=== PATIENT | female | born 1950 | race Caucasian/White ===

== ENCOUNTER 2017-06-08 15:10 | Emergency (ER) | payer OTHER ==
--- NOTE | 2017-06-08 16:06 | PDOC ---
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 HTN , diabetes, hypercholesterolemia, hypothyroidism, and gastric ulcers. Patient says she starting experiencing a headache around 11:00 am. She describes her headache as: sudden onset, rates 10/12. She states her headache occurred profusely but began to concentrate on her right side. She reports experiencing flashes of light. She reports associated symptoms of nausea and left-sided weakness. She reports that she was recently at her eye doctors office. Her doctor reported that her eyes were fine. She then saw her PCP Dr. Little who became concerned and referred to the ER. Patient reports feeling nauseated and thought she was going to pass out earlier. She states her pain has subsided and her eyes do not bother her as much. Rates her current pain 5/10. She denies fever, chills, vomiting, diarrhea. FMHx: heart attack & cancer. <Daria Feldman - Last Filed: 06/08/17 17:04> <Jeana Pacheco - Last Filed: 06/08/17 18:27> - General Chief Complaint: Headache Stated Complaint: HEADACHE Time Seen by Provider: 06/08/17 15:44 Past History <Daria Feldman - Last Filed: 06/08/17 17:04> - Past Medical History Diabetes: Yes Hypercholesterolemia: Yes - Suicide/Smoking/Psychosocial Hx Smoking History: Former smoker <Jeana Pacheco - Last Filed: 06/08/17 18:27> - Past Medical History Allergies/Adverse Reactions: Allergies Allergy/AdvReac Type Severity Reaction Status Date / Time No Known Allergies Allergy Verified 06/08/17 16:04 Home Medications: Ambulatory Orders Aspirin [ASA -] 81 mg PO DAILY 02/11/14 Glimepiride 2 mg PO DAILY 02/11/14 Levothyroxine [Synthroid -] 88 mcg PO DAILY 02/11/14 Metformin HCl [Glucophage] 1,000 mg PO BID 02/11/14 Omeprazole [Prilosec (RX)] 20 mg PO DAILY 02/11/14 Amlodipine Besylate [Norvasc -] 5 mg PO DAILY 06/08/17 Atorvastatin Ca [Lipitor] 20 mg PO HS 06/08/17 Cholecalciferol (Vitamin D3) [Vitamin D3 -] 1,000 unit PO DAILY 06/08/17 Cyanocobalamin (Vitamin B-12) [Vitamin B-12] 2,500 mcg SL DAILY 06/08/17 Losartan Potassium 50 mg PO DAILY 06/08/17 Vitamin B Complex [B Complex] 1 each PO DAILY 06/08/17 Review of Systems - Review of Systems Comments:: 06/08/17 17:13 GENERAL/CONSTITUTIONAL: No fever or chills. HEAD, EYES, EARS, NOSE AND THROAT: +eye pain + disrupted vision changes No ear pain or discharge. No sore throat. GASTROINTESTINAL: + nausea. No vomiting, diarrhea or constipation. GENITOURINARY: No dysuria, frequency, or change in urination. CARDIOVASCULAR: No chest pain or shortness of breath. RESPIRATORY: No cough, wheezing, or hemoptysis. MUSCULOSKELETAL: No joint or muscle swelling or pain. No neck or back pain. SKIN: No rash NEUROLOGIC: +headache +left-sided weakness. No vertigo, loss of consciousness, or change in strength. ENDOCRINE: No increased thirst. No abnormal weight change. HEMATOLOGIC/LYMPHATIC: No anemia, easy bleeding, or history of blood clots. ALLERGIC/IMMUNOLOGIC: No hives or skin allergy. <Daria Feldman - Last Filed: 06/08/17 17:04> *Physical Exam - Vital Signs Last Vital Signs Temp Pulse Resp BP Pulse Ox 98.1 F 84 15 144/73 98 06/08/17 15:12 06/08/17 15:12 06/08/17 15:12 06/08/17 15:12 06/08/17 15:12 <Daria Feldman - Last Filed: 06/08/17 17:04> - Physical Exam Comments: GENERAL: Awake, alert, and fully oriented, in no acute distress HEAD: No signs of trauma EYES: PERRLA, EOMI, sclera anicteric, conjunctiva clear ENT: Auricles normal inspection, hearing grossly normal, nares patent, oropharynx clear without exudates. Moist mucosa NECK: Normal ROM, supple, no lymphadenopathy, JVD, or masses LUNGS: Breath sounds equal, clear to auscultation bilaterally. No wheezes, and no crackles HEART: Regular rate and rhythm, normal S1 and S2, no murmurs, rubs or gallops ABDOMEN: Soft, nontender, normoactive bowel sounds. No guarding, no rebound. No masses EXTREMITIES: Normal range of motion, no edema. No clubbing or cyanosis. No cords , erythema, or tenderness NEUROLOGICAL: Cranial nerves II through XII grossly intact. Normal speech, normal gait. Motor 4/5 to LUE/LLE, 5/5 to RUE/RLE. Sensation intact. SKIN: Warm, Dry, normal turgor, no rashes or lesions noted. SPINE: No midline tenderness. <eJana Pacheco - Last Filed: 06/08/17 18:27> ED Treatment Course - LABORATORY CBC & Chemistry Diagram: 06/08/17 16:45 06/08/17 16:45 - Medications Given in the ED: ED Medications Discontinued Medications Generic Name Dose Route Start Last Admin Trade Name Freq PRN Reason Stop Dose Admin Acetaminophen 1,000 mg 06/08/17 16:19 06/08/17 16:45 Ofirmev Injection - IVPB 06/08/17 16:20 1,000 mg ONCE ONE Administration Metoclopramide HCl 10 mg 06/08/17 16:19 06/08/17 16:53 Reglan Injection - IVPB 06/08/17 16:20 10 mg ONCE ONE Administration <Daria Feldman - Last Filed: 06/08/17 17:04> - LABORATORY CBC & Chemistry Diagram: 06/08/17 16:45 06/08/17 16:45 <Jeana Pacheco - Last Filed: 06/08/17 18:27> Medical Decision Making - Medical Decision Making 06/08/17 17:49 Pt symptoms have resolved. Neuro exam with return of full 5/5 strength to the LUE and LLE. CTH no acute findings. Suspect this was complex migraine. Will page Dr. Little to discuss if he is available. 06/08/17 17:59 D/w Dr. Little. Will f/u outpatient. <Jeana Pacheco - Last Filed: 06/08/17 18:27> *DC/Admit/Observation/Transfer - Attestations Scribe Attestion: 06/08/17 17:13 Documentation prepared by Daria Feldman, acting as electromedical equipment technician for Jeana Pacheco MD. <Daria Feldman Filed: 06/08/17 17:04> - Discharge Dispostion Admit: No <Jeana Pacheco - Last Filed: 06/08/17 18:27> Diagnosis at time of Disposition: Headache Qualifiers: Headache type: unspecified Headache chronicity pattern: acute headache Intractability: not intractable Qualified Code(s): R51 - Headache - Discharge Dispostion Disposition: HOME Condition at time of disposition: Improved - Referrals Referrals: Mariusz Ltitle MD [Primary Care Provider] - - Patient Instructions Printed Discharge Instructions: DI for Headache
[2017-06-08 16:15] VITALS: BP 144/73; PULSE 84; TEMP 98.1; BMI 30.2
[2017-06-08] MEDS ORDERED: METOCLOPRAMIDE HCL INJECTION 10 MG/2 ML VIAL IVPB ONE (16:19)
[2017-06-08] MEDS ORDERED: ACETAMINOPHEN 1000 MG/100 ML VIAL (NON FORMULARY) IVPB ONE (16:19)
[2017-06-08] MEDS ORDERED: SODIUM CHLORIDE 1,000 ML IV STA (16:19)
[2017-06-08] MEDS ORDERED: ACETAMINOPHEN INJECTION 100 ML IVPB ONE (16:33)
[2017-06-08 16:57] LABS: BASOPHIL 0.6 % (0-2.0); EOSINOPHIL 0.1 % (0-4.5); MCH 29.3 pg (25.7-33.7); MCHC 34.7 g/dl (32.0-36.0); MEAN CELL VOLUME 84.6 fl (80-96); MEAN PLT VOLUME 7.4 fl (7.5-11.1); NEUTROPHILS 63.9 % (42.8-82.8); PLATELET COUNT 348 K/MM3 (134-434); RDW 13.1 % (11.6-15.6); WHITE BLOOD COUNT 8.1 K/mm3 (4.0-10.8)
[2017-06-08 17:16] LABS: ALBUMIN 4.4 g/dl (3.5-5.0); ALK PHOS 61 U/L (32-92); ANION GAP 10 (8-16); BILIRUBIN,TOTAL 0.6 mg/dl (0.2-1.0); CALCIUM 9.5 mg/dl (8.4-10.2); CO2 30 mmol/L (22-28); CREATININE 0.8 mg/dl (0.6-1.3); GLUCOSE,RANDOM 163 mg/dl (74-106); SGOT/AST 20 U/L (10-42); SGPT/ALT 18 U/L (10-40); TOT PROT 7.1 g/dl (6.4-8.3)
== END 2017-06-08 17:56 | disposition home or self-care (01) ==
LOC: FER 15:10
PROC: 3E033NZ Introduction of Analgesics, Hypnotics, Sedatives into Peripheral Vein, Percutaneous Approach (ICD-10-PCS; principal; 2017-06-08)
PROC: 3E033GC Introduction of Other Therapeutic Substance into Peripheral Vein, Percutaneous Approach (ICD-10-PCS; 2017-06-08)
PROC: 3E0337Z Introduction of Electrolytic and Water Balance Substance into Peripheral Vein, Percutaneous Approach (ICD-10-PCS; 2017-06-08)
DX: R51 Headache (principal)
CPT/HCPCS: 36415; 70450-TC; 80053; 85025; 96361; 96374; 96375; 99282-25

== ENCOUNTER 2017-10-15 11:02 | Inpatient (IN) | payer OTHER ==
[2017-10-15] MEDS ORDERED: SODIUM CHLORIDE 1,000 ML IV SCH (12:00)
[2017-10-15 12:01] LABS: BASO % 1.3 % (0-2.0); EOS % 0.1 % (0-4.5); HEMATOCRIT 38.9 % (32.4-45.2); HEMOGLOBIN 12.5 GM/dL (10.7-15.3); LYMPH % 21.7 % (8-40); MCH 27.6 pg (25.7-33.7); MCHC 32.1 g/dl (32.0-36.0); MEAN CELL VOLUME 86.1 fl (80-96); MEAN PLT VOLUME 7.2 fl (7.5-11.1); MONO % 6.9 % (3.8-10.2); PLATELET COUNT 375 K/MM3 (134-434); RBC 4.52 M/mm3 (3.60-5.2); WHITE BLOOD COUNT 9.9 K/mm3 (4.0-10.0)
--- NOTE | 2017-10-15 12:06 | PDOC ---
History of Present Illness - General Chief Complaint: CVA/TIA Stated Complaint: WEAKNESS Time Seen by Provider: 10/15/17 11:15 History Source: Patient - History of Present Illness Initial Comments: 10/15/17 12:06 66F with pmh of diabetes, htn and hypothyroidism presents with 2 week history of left arm weakness. pain and numbness, which got worse since Sunday. Patient states those symptoms getting progressively worse. Numbness and pain are worse when arm is dangling by her side and relived with internal rotation. Shes been keeping her arm in a sling. Dr. Little her pcp told her that thios was probably a pinched nerve. She admits to a history of multiple spine fractures and a recent chest Ct showing multiple lung nodules. Past History - Past Medical History Allergies/Adverse Reactions: Allergies Allergy/AdvReac Type Severity Reaction Status Date / Time No Known Allergies Allergy Verified 10/15/17 11:07 Home Medications: Ambulatory Orders Aspirin [ASA -] 81 mg PO DAILY 02/11/14 Glimepiride 2 mg PO DAILY 02/11/14 Levothyroxine [Synthroid -] 88 mcg PO DAILY 02/11/14 Omeprazole [Prilosec (RX)] 20 mg PO DAILY 02/11/14 metFORMIN HCL [Glucophage] 1,000 mg PO BID 02/11/14 Amlodipine Besylate [Norvasc -] 5 mg PO DAILY 06/08/17 Atorvastatin Ca [Lipitor] 20 mg PO HS 06/08/17 Cholecalciferol (Vitamin D3) [Vitamin D3 -] 1,000 unit PO DAILY 06/08/17 Cyanocobalamin (Vitamin B-12) [Vitamin B-12] 2,500 mcg SL DAILY 06/08/17 Losartan Potassium 50 mg PO DAILY 06/08/17 Vitamin B Complex [B Complex] 1 each PO DAILY 06/08/17 Zolpidem Tartrate [Ambien] 5 mg PO HS 10/15/17 COPD: No Diabetes: Yes HTN: Yes Hypercholesterolemia: Yes - Suicide/Smoking/Psychosocial Hx Smoking History: Former smoker Have you smoked in the past 12 months: No If you are a former smoker, when did you quit?: 2005 Information on smoking cessation initiated: No Hx Alcohol Use: Yes Drug/Substance Use Hx: No Substance Use Type: None *Physical Exam - Vital Signs Last Vital Signs Temp Pulse Resp BP Pulse Ox 97.9 F 84 18 148/75 100 10/15/17 11:03 10/15/17 11:54 10/15/17 11:03 10/15/17 11:03 10/15/17 11:54 Critical Care Time/MDM Note - Medical Decision Making Note: 10/15/17 12:37 Although the patient's presentation suggests a more focal, musculoskeletal etiology, we will rule out stroke with head CT and order bloodwork after taking stroke precautions. In addition, the patient recent chest CT and pulmonary nodules can be suggestive of a neoplastic/metastatic etiology but an cervical radiculopathy is also high in the differential and will be evaluated with a cervical neck CT. Labs and imaging pending then will call neurology. 10/15/17 15:37 There is multilevel disc space narrowing, uncovertebral and posterior facet hypertrophy. The disc space narrowing is most severe at C3-C4. There is mild narrowing of the right C2-C3 neural foramen, moderate narrowing of the left C3-C4 neural foramen, severe narrowing of the right C3-C4 neural foramen and mild narrowing of multiple additional neural foramen on the cervical spine. There is at least moderate canal stenosis at C3-C4 secondary to disc osteophyte complex, kyphotic angulation and facet hypertrophy with thickening of ligamentum flavum. There is at least mild canal stenosis at C4-C5 and C5-C6. Will get in touch with neuro surgery Patient admitted to med surg. Discharge Disposition - Discharge Dispostion Last Admission D/C Date: 11/29/00 - Referrals - Patient Instructions - Post Discharge Activity
[2017-10-15 12:07] LABS: URINE APPEARANCE CLEAR; URINE BILIRUBIN NEGATIVE (NEGATIVE); URINE BLOOD NEGATIVE (NEGATIVE); URINE COLOR LTYELLOW; URINE GLUCOSE (UA) NEGATIVE (NEGATIVE); URINE KETONE NEGATIVE (NEGATIVE); URINE LEUK ESTERASE NEGATIVE (NEGATIVE); URINE NITRITE NEGATIVE (NEGATIVE); URINE PROTEIN NEGATIVE (NEGATIVE); URINE UROBILINOGEN NEGATIVE mg/dL (0.2-1.0)
--- NOTE | 2017-10-15 12:15 | PDOC ---
Attending Attestation - Medical Decision Making 10/15/17 13:53 Dr. Brown was called regarding admission of this patient and the patient's case was discussed. Dr. Goyal was paged requesting a call back <Ana María Robles - Last Filed: 10/15/17 13:53> - Resident Resident Name: Chilo Washington - ED Attending Attestation I have performed the following: I have examined & evaluated the patient, The case was reviewed & discussed with the resident, I agree w/resident's findings & plan, Exceptions are as noted - HPI HPI: 10/15/17 12:06 The patient is a 62 year old female, with a significant past medical history of hypothyroidism, diabetes, hypertension, who presents to the emergency department with left arm weakness, progressively worsening for about 2 weeks. She reports that for the past 3 days, she has been unable to raise her left arm. Denies any neck pain. Denies weakness/numbness in any other extremity. Denies KC/N/V. Denies facial droop or slurred speech. The patient denies chest pain, shortness of breath, headache and dizziness. The patient denies fever, chills, nausea, vomit, diarrhea and constipation. The patient denies dysuria, frequency, urgency and hematuria. Allergies: NKDA - Physicial Exam PE: 10/15/17 12:09 GENERAL: Awake, alert, and fully oriented, in no acute distress HEAD: No signs of trauma EYES: PERRLA, EOMI, sclera anicteric, conjunctiva clear ENT: Auricles normal inspection, hearing grossly normal, nares patent, oropharynx clear without exudates. Moist mucosa NECK: Nontender, no stepoffs, Normal ROM, supple, no lymphadenopathy, JVD, or masses LUNGS: Breath sounds equal, clear to auscultation bilaterally. No wheezes, and no crackles HEART: Regular rate and rhythm, normal S1 and S2, no murmurs, rubs or gallops ABDOMEN: Soft, nontender, normoactive bowel sounds. No guarding, no rebound. No masses EXTREMITIES: Normal range of motion, no edema. No clubbing or cyanosis. No cords, erythema, or tenderness NEUROLOGICAL: Cranial nerves II through XII intact. Normal speech, normal gait, LUE with 3/5 deltoid and bicep strength, RUE with 5/5 strength, BLE 5/5 strength , sensation intact throughout SKIN: Warm, Dry, normal turgor, no rashes or lesions noted. - Medical Decision Making 10/15/17 12:15 66 F with LUE weakness (deltoid and bicep weakness), concerning for cervical radiculopathy vs brachial plexus injury. Also consider CVA. - Labs - CT head, CT c-spine - Neuro consult - MRI CT with spinal stenosis, likely cause of pt's weakness. Neuro and neurosurgery consulted. MRI ordered. Pt admitted to hospitalist. <Sarabjit Jimenez - Last Filed: 10/17/17 05:10> NIH Stroke Scale - Last Known Well Date/Time & Onset Date Last Known Well: 10/12/17 Time Last Known Well: 05:00 - Initial Evaluation Level of consciousness: Alert Ask patient the month and their age: Answers both correctly Ask patient to open & close eyes; make fist and let go: Obeys both correctly Best gaze (horizontal eye movement): Normal Visual field testing: No visual field loss Facial paresis (Show teeth/raise eyebrows/close eyes tight): Normal symmetrical movement Motor Function: Left Arm: Some effort against gravity Motor Function: Right Arm: Normal (extends arm 90 (or 45) degrees for 10 seconds without drift Motor Function: Left Leg: Normal (extends leg 30 degrees for 5 seconds without drift) Motor Function: Right Leg: Normal (extends leg 30 degrees for 5 seconds without drift) Limb Ataxia: No ataxia Sensory(Use pinprick test arms,legs,trunk,face/side to side): Normal Best language (Describe picture, name items, read sentences): No Aphasia Dysarthria (read several words): Normal articulation Extinction and Inattention: No abnormality - Total Score NIH Stroke Scale Score: 2 <Sarabjit Jimenez - Last Filed: 10/17/17 05:10>
[2017-10-15 12:18] LABS: INR 0.94 (0.82-1.09); PROTHROMBIN TIME (PATIENT) 10.6 SEC (9.98-11.88)
[2017-10-15 12:20] LABS: ACTIVATED PTT 30.4 SECONDS (26.9-34.4)
[2017-10-15 12:27] LABS: ALBUMIN 4.5 g/dl (3.4-5.0); ANION GAP 6 (8-16); BILIRUBIN,TOTAL 0.4 mg/dL (0.2-1.0); BLOOD UREA NITROGEN 11 mg/dL (7-18); CALCIUM 8.8 mg/dL (8.5-10.1); CHLORIDE 104 mmol/L (98-107); CHOLESTEROL 178 mg/dL (50-200); CO2 30 mmol/L (21-32); CREATININE 0.8 mg/dL (0.55-1.02); GLUCOSE,RANDOM 87 mg/dL (74-106); LDL CHOLESTEROL (ONLY SJRH) 89 mg/dL (5-100); POTASSIUM 4.7 mmol/L (3.5-5.1); SGOT/AST 17 U/L (15-37); SGPT/ALT 26 U/L (12-78); SODIUM 140 mmol/L (136-145); TRIGLYCERIDES 211 mg/dL (35-160)
[2017-10-15 12:28] LABS: ALK PHOS 79 U/L (45-117); HDL CHOLESTEROL 76 mg/dL (40-60)
--- NOTE | 2017-10-15 17:42 | CONSULT ---
Consult - text type - Consultation Consultation Note: NEUROSURGERY CONSULTATION Mayra Hancock is a 66 year old female who has a several week history of progression of her chronic neck and Left arm pain. She describes difficulty raising the Left arm above the horizontal. She has significant numbness and paresthesias in her Left greater than Right hands which is associated with loss of fine motor skills in her Left hand. She describes a poor quality of life and substantial impairment of her activities of daily living associated with this problem. She has Left shoulder and arm pain which is only relieved by raising her Left hand to her Right shoulder using her Right arm. This is awkward, but necessary to relieve the pain which is greatly bothering her. CT Cervical demonstrates multiple levels of spondylosis with osteophytes that encroach upon the neural foramina and narrow the AP Cervical spinal canal diameter which is already congenitally narrow. The kaylee canal (not considering any soft tissue compression) is less than 9 mm at some levels. MRI will be very helpful to understand the extent of neural compression and to identify potential soft disc herniations which will have important bearing upon the potential treatment options. I briefly outlined both ventral, dorsal and combined decompression/stabilization strategies and explained that the MRI will help me make a final recommendation. I suggested that she remain NPO after midnight to keep all options available. The patient and daughter verbalized an understanding of this information and indeed are eager to pursue a definitive solution including the possibility of surgery since they both share a sense that she has left this untreated for too long a period of time. All questions were answered. PLAN -MRI Cervical without contrast RAFIA -Admit to Medicine (Dilshad Brown) -Medical clearance for potential surgery in AM
[2017-10-15 17:58] VITALS: BMI 30.8
--- NOTE | 2017-10-15 19:26 | HP ---
Admitting History and Physical - Primary Care Physician PCP: Rhona Brown - Admission Chief Complaint: left arm weakness History of Present Illness: 66 year old female came to ER for 2 weeks h/o Left arm pain. She describes difficulty raising the Left arm above the horizontal. She has significant numbness and paresthesias in her Left greater than Right hands which is associated with loss of fine motor skills in her Left hand. Also said she had impairment of her activities of daily living . She has Left shoulder and arm pain which is only relieved by raising her Left hand to her Right shoulder using her Right arm. This is awkward, but necessary to relieve the pain which is greatly bothering her. - Past Medical History Cardiovascular: Yes: HTN Endocrine: Yes: Diabetes Mellitus - Smoking History Smoking history: Former smoker Have you smoked in the past 12 months: No If you are a former smoker, when did you quit?: 2006 - Alcohol/Substance Use Hx Alcohol Use: Yes Home Medications - Allergies Allergies/Adverse Reactions: Allergies Allergy/AdvReac Type Severity Reaction Status Date / Time No Known Allergies Allergy Verified 10/15/17 11:07 - Home Medications Home Medications: Ambulatory Orders Aspirin [ASA -] 81 mg PO DAILY 02/11/14 Glimepiride 2 mg PO DAILY 02/11/14 Levothyroxine [Synthroid -] 88 mcg PO DAILY 02/11/14 Omeprazole [Prilosec (RX)] 20 mg PO DAILY 02/11/14 metFORMIN HCL [Glucophage] 1,000 mg PO BID 02/11/14 Amlodipine Besylate [Norvasc -] 5 mg PO DAILY 06/08/17 Atorvastatin Ca [Lipitor] 20 mg PO HS 06/08/17 Cholecalciferol (Vitamin D3) [Vitamin D3 -] 2,000 unit PO DAILY 06/08/17 Losartan Potassium 50 mg PO DAILY 06/08/17 Vitamin B Complex [B Complex] 1 each PO DAILY 06/08/17 Ascorbic Acid [Vitamin C] 500 mg PO DAILY 10/15/17 Biotin 5,000 mcg PO DAILY 10/15/17 Cyanocobalamin [Vitamin B12 -] 1,000 mcg PO DAILY 10/15/17 L.acidoph,Paracasei, B.lactis [Probiotic] 1 each PO DAILY 10/15/17 Vance-3 Fatty Acids/Fish Oil [Fish Oil 1,000 mg Capsule] 1 each PO DAILY Vitamin E 400 unit PO DAILY 10/15/17 Zolpidem Tartrate [Ambien] 5 mg PO HS 10/15/17 Review of Systems - Review of Systems Neurological: reports: Numbness, Parasthesia, Weakness (left arm) Physical Examination Vital Signs: Vital Signs Temperature 98.2 F 10/15/17 17:51 Pulse Rate 93 H 10/15/17 17:51 Respiratory Rate 20 10/15/17 17:51 Blood Pressure 132/86 10/15/17 17:51 O2 Sat by Pulse Oximetry (%) 95 10/15/17 13:18 Constitutional: Yes: No Distress HENT: Yes: Atraumatic Neck: Yes: Supple Cardiovascular: Yes: Regular Rate and Rhythm Respiratory: Yes: CTA Bilaterally Gastrointestinal: Yes: Normal Bowel Sounds Extremities: Yes: WNL Labs: CBC, BMP 10/15/17 11:53 10/15/17 11:53 Problem List - Problems (1) HTN (hypertension) Code(s): I10 - ESSENTIAL (PRIMARY) HYPERTENSION (2) Diabetes Code(s): E11.9 - TYPE 2 DIABETES MELLITUS WITHOUT COMPLICATIONS (3) Weakness Code(s): R53.1 - WEAKNESS Assessment/Plan Laboratory Tests 10/15/17 10/15/17 10/15/17 11:53 11:53 11:53 WBC 9.9 RBC 4.52 Hgb 12.5 Hct 38.9 MCV 86.1 MCH 27.6 MCHC 32.1 RDW 14.0 Plt Count 375 MPV 7.2 L Neutrophils % 70.0 Lymphocytes % 21.7 Monocytes % 6.9 Eosinophils % 0.1 Basophils % 1.3 PT with INR 10.60 INR 0.94 PTT (Actin FS) 30.4 Sodium Potassium Chloride Carbon Dioxide Anion Gap BUN Creatinine Creat Clearance w eGFR Random Glucose Calcium Total Bilirubin AST ALT Alkaline Phosphatase Creatine Kinase Troponin I Total Protein Albumin Triglycerides Cholesterol Total LDL Cholesterol HDL Cholesterol Urine Color Ltyellow Urine Appearance Clear Urine pH 5.0 Ur Specific [place] 1.006 Urine Protein Negative Urine Glucose (UA) Negative Urine Ketones Negative Urine Blood Negative Urine Nitrite Negative Urine Bilirubin Negative Urine Urobilinogen Negative Ur Leukocyte Esterase Negative Blood Type Antibody Screen 10/15/17 10/15/17 11:53 11:53 WBC RBC Hgb Hct MCV MCH MCHC RDW Plt Count MPV Neutrophils % Lymphocytes % Monocytes % Eosinophils % Basophils % PT with INR INR PTT (Actin FS) Sodium 140 Potassium 4.7 Chloride 104 Carbon Dioxide 30 Anion Gap 6 L BUN 11 Creatinine 0.8 Creat Clearance w eGFR > 60 Random Glucose 87 Calcium 8.8 Total Bilirubin 0.4 AST 17 ALT 26 Alkaline Phosphatase 79 Creatine Kinase 89 Troponin I < 0.02 Total Protein 8.0 Albumin 4.5 Triglycerides 211 H Cholesterol 178 Total LDL Cholesterol 89 HDL Cholesterol 76 H Urine Color Urine Appearance Urine pH Ur Specific [place] Urine Protein Urine Glucose (UA) Urine Ketones Urine Blood Urine Nitrite Urine Bilirubin Urine Urobilinogen Ur Leukocyte Esterase Blood Type A POSITIVE Antibody Screen Negative Active Medications Generic Name Dose Route Start Last Admin Trade Name Freq PRN Reason Stop Dose Admin Sodium Chloride 1,000 mls @ 42 mls/hr 10/15/17 12:00 10/15/17 11:49 Normal Saline - IV 42 mls/hr ASDIR JONATHAN Administration
[2017-10-15] MEDS ORDERED: ACETAMINOPHEN 325 MG TABLET (FP) PO PRN (19:30)
[2017-10-15] MEDS ORDERED: ZOLPIDEM TARTRATE 5 MG TABLET PO PRN (22:00)
[2017-10-15] MEDS: ATORVASTATIN CA 20 MG TABLET (FP) PO SCH (23:05)
--- NOTE | 2017-10-15 23:09 | EKG ---
Test Reason : Blood Pressure : / mmHG Vent. Rate : 087 BPM Atrial Rate : 087 BPM P-R Int : 140 ms QRS Dur : 064 ms QT Int : 356 ms P-R-T Axes : 049 015 073 degrees QTc Int : 428 ms NORMAL SINUS RHYTHM NONSPECIFIC T WAVE ABNORMALITY ABNORMAL ECG WHEN COMPARED WITH ECG OF 27-JUL-2008 15:34, NO SIGNIFICANT CHANGE WAS FOUND Confirmed by ANA SALAS MD ([id number]) on 10/15/2017 11:08:51 PM Referred By: Confirmed By:ANA SALAS MD
[2017-10-16] MEDS: metFORMIN HCL 500 MG TABLET (FP) PO SCH ×3 (06:25→17:59)
[2017-10-16] MEDS: GLIMEPIRIDE 2 MG TABLET (FP) PO SCH (06:25)
[2017-10-16] MEDS: LEVOTHYROXINE NA 88 MCG TABLET (FP) PO SCH (07:19)
[2017-10-16 07:48] LABS: BASO % 0.7 % (0-2.0); EOS % 0.3 % (0-4.5); HEMATOCRIT 33.5 % (32.4-45.2); HEMOGLOBIN 11.1 GM/dL (10.7-15.3); LYMPH % 38.5 % (8-40); MCH 28.1 pg (25.7-33.7); MCHC 33.1 g/dl (32.0-36.0); MONO % 7.7 % (3.8-10.2); NEUT % 52.8 % (42.8-82.8); PLATELET COUNT 304 K/MM3 (134-434); RBC 3.94 M/mm3 (3.60-5.2); RDW 13.7 % (11.6-15.6); WHITE BLOOD COUNT 6.9 K/mm3 (4.0-10.0)
[2017-10-16 08:07] LABS: ALBUMIN 3.5 g/dl (3.4-5.0); ANION GAP 8 (8-16); BLOOD UREA NITROGEN 13 mg/dL (7-18); CALCIUM 9.1 mg/dL (8.5-10.1); CHLORIDE 105 mmol/L (98-107); CO2 29 mmol/L (21-32); POTASSIUM 4.8 mmol/L (3.5-5.1); SODIUM 142 mmol/L (136-145)
[2017-10-16 08:13] LABS: ALK PHOS 59 U/L (45-117); BILIRUBIN,TOTAL 0.3 mg/dL (0.2-1.0); CREATININE 0.7 mg/dL (0.55-1.02); GLUCOSE,RANDOM 103 mg/dL (74-106); SGOT/AST 14 U/L (15-37); SGPT/ALT 21 U/L (12-78); TOT PROT 6.6 g/dl (6.4-8.2)
--- NOTE | 2017-10-16 09:55 | CONSULT ---
Consult - text type - Consultation Consultation Note: Neurology History of Present Illness 66F with pmh of diabetes, htn and hypothyroidism presented initally to my office without appointment for 2 week history of left arm weakness. pain and numbness, which got worse since Sunday prior. She reported that symptoms have been persistent and having numbness and pain. She would hold her left arm in internal rotation for relief. Shes been keeping her arm in a sling reportedly. I referred her to ER where she had CT head which did not show acute changes. CT C spine reviewed and with degenerative changes. She compelted MRI brain which did not show acute changes, there was prior L cerebellar infarct noted. MRI C spine also completed and Dr. Alejandra note reviewed and consider surgical intervention. Moderate C3-C4 and C5-C6 central stenosis. Of note, she reports these symptoms have been recurrent and will go away. She is very emotional during encounter. Past History - Past Medical History Allergies/Adverse Reactions: Allergies Allergy/AdvReac Type Severity Reaction Status Date / Time No Known Allergies Allergy Verified 10/15/17 11:07 Home Medications: Ambulatory Orders Aspirin [ASA -] 81 mg PO DAILY 02/11/14 Glimepiride 2 mg PO DAILY 02/11/14 Levothyroxine [Synthroid -] 88 mcg PO DAILY 02/11/14 Omeprazole [Prilosec (RX)] 20 mg PO DAILY 02/11/14 metFORMIN HCL [Glucophage] 1,000 mg PO BID 02/11/14 Amlodipine Besylate [Norvasc -] 5 mg PO DAILY 06/08/17 Atorvastatin Ca [Lipitor] 20 mg PO HS 06/08/17 Cholecalciferol (Vitamin D3) [Vitamin D3 -] 1,000 unit PO DAILY 06/08/17 Cyanocobalamin (Vitamin B-12) [Vitamin B-12] 2,500 mcg SL DAILY 06/08/17 Losartan Potassium 50 mg PO DAILY 06/08/17 Vitamin B Complex [B Complex] 1 each PO DAILY 06/08/17 Zolpidem Tartrate [Ambien] 5 mg PO HS 10/15/17 COPD: No Diabetes: Yes HTN: Yes Hypercholesterolemia: Yes - Suicide/Smoking/Psychosocial Hx Smoking History: Former smoker Have you smoked in the past 12 months: No If you are a former smoker, when did you quit?: 2005 Information on smoking cessation initiated: No Hx Alcohol Use: Yes Drug/Substance Use Hx: No Substance Use Type: None *Physical Exam Vital Signs Temperature 98 F 10/16/17 07:28 Pulse Rate 85 10/16/17 07:28 Respiratory Rate 20 10/16/17 07:28 Blood Pressure 133/64 18 07:28 O2 Sat by Pulse Oximetry (%) 95 10/15/17 13:18 ENERAL: Awake, alert, and fully oriented, in no acute distress HEAD: No signs of trauma EYES: PERRLA, EOMI, sclera anicteric, conjunctiva clear ENT: Auricles normal inspection, hearing grossly normal, nares patent, oropharynx clear without exudates. Moist mucosa NECK: Nontender, no stepoffs, Normal ROM, supple, no lymphadenopathy, JVD, or masses LUNGS: Breath sounds equal, clear to auscultation bilaterally. No wheezes, and no crackles HEART: Regular rate and rhythm, normal S1 and S2, no murmurs, rubs or gallops ABDOMEN: Soft, nontender, normoactive bowel sounds. No guarding, no rebound. No masses EXTREMITIES: Normal range of motion, no edema. No clubbing or cyanosis. No cords, erythema, or tenderness NEUROLOGICAL: Cranial nerves II through XII intact. Normal speech, normal gait, LUE with 3/5 deltoid and bicep strength, RUE with 5/5 strength, BLE 5/5 strength , sensation intact throughout SKIN: Warm, Dry, normal turgor, no rashes or lesions noted. CBCD WBC 6.9 K/mm3 (4.0-10.0) D 10/16/17 06:00 RBC 3.94 M/mm3 (3.60-5.2) 10/16/17 06:00 Hgb 11.1 GM/dL (10.7-15.3) D 10/16/17 06:00 Hct 33.5 % (32.4-45.2) 10/16/17 06:00 MCV 85.0 fl (80-96) 10/16/17 06:00 MCHC 33.1 g/dl (32.0-36.0) 10/16/17 06:00 RDW 13.7 % (11.6-15.6) 10/16/17 06:00 Plt Count 304 K/MM3 (134-434) 10/16/17 06:00 MPV 7.0 fl (7.5-11.1) L 10/16/17 06:00 CMP Sodium 142 mmol/L (136-145) 10/16/17 06:00 Potassium 4.8 mmol/L (3.5-5.1) 10/16/17 06:00 Chloride 105 mmol/L (98-107) 10/16/17 06:00 Carbon Dioxide 29 mmol/L (21-32) 10/16/17 06:00 Anion Gap 8 (8-16) 10/16/17 06:00 BUN 13 mg/dL (7-18) 10/16/17 06:00 Creatinine 0.7 mg/dL (0.55-1.02) 10/16/17 06:00 Creat Clearance w eGFR > 60 (>60) 10/16/17 06:00 Calcium 9.1 mg/dL (8.5-10.1) 10/16/17 06:00 Total Bilirubin 0.3 mg/dL (0.2-1.0) D 10/16/17 06:00 AST 14 U/L (15-37) L 10/16/17 06:00 ALT 21 U/L (12-78) 10/16/17 06:00 Alkaline Phosphatase 59 U/L (45-117) 10/16/17 06:00 Total Protein 6.6 g/dl (6.4-8.2) 10/16/17 06:00 Albumin 3.5 g/dl (3.4-5.0) 10/16/17 06:[address] C spine reviewed MRI brain and MRI C spine reviewed Plan: 66F with pmh of diabetes, htn and hypothyroidism presented initally to my office without appointment for 2 week history of left arm weakness. pain and numbness, which got worse since Ramiro prior. She reported that symptoms have been persistent and having numbness and pain. She would hold her left arm in internal rotation for relief. Shes been keeping her arm in a sling reportedly. I referred her to ER where she had CT head which did not show acute changes. CT C spine reviewed and with degenerative changes. She completed MRI brain which did not show acute changes, there was prior L cerebellar infarct noted. MRI C spine also completed Moderate C3-C4 and C5-C6 central stenosis. Of note, she reports these symptoms have been recurrent and will go away. Dr. Alejandra note reviewed and consider surgical intervention. Defer to Dr. Alejandra and patient regarding surgical options Will order EMG/NCS in interim Physical therapy Consider orthopedic evaluation No heavy lifting
[2017-10-16] MEDS: amLODIPine BESYLATE 5 MG TABLET (FP) PO SCH (11:01)
[2017-10-16] MEDS: PANTOPRAZOLE 20 MG TABLET (FP) PO SCH (11:01)
[2017-10-16] MEDS: LOSARTAN POTASSIUM 50 MG TABLET (FP) PO SCH (11:01)
[2017-10-16] MEDS: CYANOCOBALAMIN 1,000 MCG TABLET (FP) PO SCH (11:01)
--- NOTE | 2017-10-16 12:22 | PN ---
Progress Note, Physician Chief Complaint: Ms Hancock says she feels better now that there is a plan for her pain. Says the pain is present and unchanged. No cp, sob, n/v. - Current Medication List Current Medications: Active Medications Acetaminophen (Tylenol -) 650 mg PO Q6H PRN PRN Reason: FEVER Last Admin: 10/15/17 23:05 Dose: 650 mg Amlodipine Besylate (Norvasc -) 5 mg PO DAILY [facility] Last Admin: 10/16/17 11:01 Dose: 5 mg Atorvastatin Calcium (Lipitor -) 20 mg PO HS [facility] Last Admin: 10/15/17 23:05 Dose: 20 mg Chlorhexidine Gluconate (Hibiclens For Decolonization -) 1 applic TP HS ONE Stop: 10/16/17 22:01 Cyanocobalamin (Vitamin B12 -) 1,000 mcg PO DAILY [facility] Last Admin: 10/16/17 11:01 Dose: 1,000 mcg Glimepiride (Amaryl -) 2 mg PO DAILY@0700 [facility] Last Admin: 10/16/17 06:25 Dose: 2 mg Sodium Chloride (Normal Saline -) 1,000 mls @ 42 mls/hr IV ASDIR [facility] Last Admin: 10/15/17 11:49 Dose: 42 mls/hr Levothyroxine Sodium (Synthroid -) 88 mcg PO DAILY@0700 [facility] Last Admin: 10/16/17 07:19 Dose: 88 mcg Losartan Potassium (Cozaar -) 50 mg PO DAILY [facility] Last Admin: 10/16/17 11:01 Dose: 50 mg Metformin HCl (Glucophage -) 1,000 mg PO BIDAC [facility] Last Admin: 10/16/17 07:11 Dose: Not Given Pantoprazole Sodium (Protonix -) 20 mg PO DAILY [facility] Last Admin: 10/16/17 11:01 Dose: 20 mg Zolpidem Tartrate (Ambien -) 5 mg PO HS PRN PRN Reason: INSOMNIA - Objective Vital Signs: Vital Signs Temperature 36.6 C 10/16/17 07:28 Pulse Rate 85 10/16/17 07:28 Respiratory Rate 20 10/16/17 07:28 Blood Pressure 133/64 10/16/17 07:28 O2 Sat by Pulse Oximetry (%) 95 10/15/17 13:18 Constitutional: Yes: Well Nourished, No Distress, Calm Cardiovascular: Yes: Regular Rate and Rhythm. No: Gallop, Murmur, Rub Respiratory: Yes: Regular, CTA Bilaterally. No: Rales, Rhonchi, Wheezes Gastrointestinal: Yes: Normal Bowel Sounds, Soft. No: Distention, Tenderness Extremities: Yes: WNL Edema: No Labs: CBC, BMP 10/16/17 06:00 10/16/17 06:00 INR, PTT INR 0.94 (0.82-1.09) 10/15/17 11:53 Problem List - Problems (1) Cervical stenosis of spinal canal Assessment/Plan: -s/p CT and MRI scans -appreciate neurosurgery assistance -planning for surgical intervention tomorrow Code(s): M48.02 - SPINAL STENOSIS, CERVICAL REGION (2) Diabetes Assessment/Plan: -diabetic diet -continue metformin and amaryl Code(s): E11.9 - TYPE 2 DIABETES MELLITUS WITHOUT COMPLICATIONS (3) HTN (hypertension) Assessment/Plan: -controlled -continue norvasc and losartan Code(s): I10 - ESSENTIAL (PRIMARY) HYPERTENSION (4) Hypothyroid Assessment/Plan: -continue synthroid Code(s): E03.9 - HYPOTHYROIDISM, UNSPECIFIED
--- NOTE | 2017-10-16 16:52 | CON.CARD ---
Consult Consult Specialty:: cardiology Reason for Consultation:: preop clearance - History of Present Illness Chief Complaint: L arm weakness History of Present Illness: 66 yo female with L arm weakness. dx'd with c-spine canal stenosis, seen by neurosurgery with plan for surgical intervention. she denies any history of cp at all, and sob only on exertion if runs. goes up stairs routinely, can climb 2 flights without stopping. no syncope no palpitations PMH: HTN HPL DM COPD ex heavy cigs hypothyroid - Past Medical History Cardio/Vascular: Yes: HTN Endocrine: Yes: Diabetes Mellitus - Alcohol/Substance Use Hx Alcohol Use: Yes - Smoking History Smoking history: Former smoker Have you smoked in the past 12 months: No If you are a former smoker, when did you quit?: 2005 Home Medications - Allergies Allergies/Adverse Reactions: Allergies Allergy/AdvReac Type Severity Reaction Status Date / Time No Known Allergies Allergy Verified 10/15/17 11:07 - Home Medications Home Medications: Ambulatory Orders Aspirin [ASA -] 81 mg PO DAILY 02/11/14 Glimepiride 2 mg PO DAILY 02/11/14 Levothyroxine [Synthroid -] 88 mcg PO DAILY 02/11/14 Omeprazole [Prilosec (RX)] 20 mg PO DAILY 02/11/14 metFORMIN HCL [Glucophage] 1,000 mg PO BID 02/11/14 Amlodipine Besylate [Norvasc -] 5 mg PO DAILY 06/08/17 Atorvastatin Ca [Lipitor] 20 mg PO HS 06/08/17 Cholecalciferol (Vitamin D3) [Vitamin D3 -] 2,000 unit PO DAILY 06/08/17 Losartan Potassium 50 mg PO DAILY 06/08/17 Vitamin B Complex [B Complex] 1 each PO DAILY 06/08/17 Ascorbic Acid [Vitamin C] 500 mg PO DAILY 10/15/17 Biotin 5,000 mcg PO DAILY 10/15/17 Cyanocobalamin [Vitamin B12 -] 1,000 mcg PO DAILY 10/15/17 L.acidoph,Paracasei, B.lactis [Probiotic] 1 each PO DAILY 10/15/17 Taswell-3 Fatty Acids/Fish Oil [Fish Oil 1,000 mg Capsule] 1 each PO DAILY Vitamin E 400 unit PO DAILY 10/15/17 Zolpidem Tartrate [Ambien] 5 mg PO HS 10/15/17 Family Disease History - Family Disease History Family History: Denies (no known CMP) Review of Systems - Review of Systems Constitutional: denies: Chills, Fever Eyes: denies: Eye Pain HENT: denies: Nasal Congestion Neck: denies: Stiffness Cardiovascular: denies: Palpitations Respiratory: denies: Orthopnea, PND Gastrointestinal: denies: Diarrhea, Rectal Bleeding Genitourinary: denies: Burning, Hematuria Musculoskeletal: denies: Muscle Pain Integumentary: denies: Rash Neurological: denies: Change in Speech, Seizure, Syncope Endocrine: denies: Excessive Sweating Hematology/Lymphatic: denies: Excessive Bleeding Vital Signs: Vital Signs Temperature 98.4 F 10/16/17 15:10 Pulse Rate 90 10/16/17 15:10 Respiratory Rate 16 10/16/17 15:10 Blood Pressure 134/66 10/16/17 15:10 O2 Sat by Pulse Oximetry (%) 97 10/16/17 09:00 Constitutional: Yes: Well Nourished, No Distress Eyes: No: Sclera Icterus HENT: No: Nasal Congestion Neck: No: Decreased ROM Respiratory: Yes: CTA Bilaterally. No: Accessory Muscle Use Gastrointestinal: Yes: Normal Bowel Sounds. No: Distention, Hepatomegaly, Palpable Mass, Tenderness Cardiovascular: Yes: Regular Rate and Rhythm JVD: No Carotid Bruit: No PMI: Non-Displaced Heart Sounds: Yes: S1, S2. No: Gallop Murmur: No: Systolic Murmur, Diastolic Murmur Musculoskeletal: Yes: Other (No kyphosis) Extremities: No: Cool, Cyanosis Edema: No Peripheral Pulses: 2+ Left Carotid, 2+ Right Carotid, 2+ Left Doralis Pedis, 2+ Right Dorsalis Pedis Integumentary: No: Jaundice Neurological: Yes: Alert, Oriented (x3) Psychiatric: No: Agitated - Other Data Labs, Other Data: CBC, BMP 10/16/17 06:00 10/16/17 06:00 INR, PTT INR 0.94 (0.82-1.09) 10/15/17 11:53 Laboratory Tests 10/15/17 10/16/17 10/16/17 11:53 06:00 06:00 WBC 6.9 D Hgb 11.1 D Plt Count 304 Sodium 142 Potassium 4.8 Carbon Dioxide 29 BUN 13 Creatinine 0.7 AST 14 L ALT 21 Albumin 3.5 Triglycerides 211 H Cholesterol 178 Total LDL Cholesterol 89 HDL Cholesterol 76 H Assessment/Plan ECG: NSR, normal axis. non-pathological q's inferior leads. no ST-T (no sig change vs 02/19 office ecg) CXR: clear lungs/pleura Preop CV eval: --Revised CV Risk Index = 1, preserved functional status --for intermediate risk surgery --no s/sx of active CV disease --intermediate risk for cv complications, may proceed without further testing HTN: --bp controlled --cont home meds HPL: --cont home statin DM: --per primary old ischemic infarct: --incidental note of L brain chronic ischemic infarct --pt with mult atherosclerotic CVA rf's --aggressive secondary prevention with current meds, further plan deferred to dr goncalves
--- NOTE | 2017-10-16 17:06 | CONS ---
PHYSICAL MEDICINE REHABILITATION CONSULTATION DATE OF CONSULTATION: 10/16/2017 REFERRING PHYSICIAN: Paxton Serna MD HISTORY OF PRESENT ILLNESS: Patient is a 66-year-old woman with past medical history significant for hypertension and diabetes, who was admitted with progressive neck pain and left upper extremity pain and numbness. Patient has had problems for some time, but over the last few weeks, has had increasing pain radiating into the left shoulder and left upper extremity. She has had difficulty with her mobility and presented to the emergency room for further evaluation. On admission, she underwent a chest x-ray which demonstrated no acute disease. Head CT on October 15 demonstrated no interval change from June 08, 2017, with no acute intracranial pathology and no mass effect or hydrocephalus. Brain MRI on October 15 also failed to demonstrate any acute pathology. There was a small, chronic left cerebellar hemispheric infarct possibly noted and some microvascular ischemic changes in the frontoparietal region. MRI of the cervical spine demonstrated multi-level disk and facet joint changes with moderate C3-4 and C5-6 central canal stenosis. There was moderate bilateral C5-6 neural foraminal narrowing also noted. Patient was seen by Neurosurgery as well as Neurology. Neurology referred the patient for electrodiagnostic studies, but currently, the patient is declining and states that, per the surgeon, this was not necessary, and she is proceeding with surgery in the a.m. tomorrow. Review of blood work: CBC was normal. As of today, WBC is 6.9, hemoglobin 11.1, platelet count 304. Chemistry: Sodium 142, potassium 4.8, chloride 105, CO2 of 29, BUN 13, creatinine 0.7. Patient again was seen for electrodiagnostic consultation but is declining any EMG nerve conduction studies. PAST MEDICAL AND SURGICAL HISTORY: As above. History of hypertension and diabetes. SOCIAL HISTORY: Premorbidly, she was independent, ambulatory without assistive device, currently limited by discomfort. REVIEW OF SYSTEMS: She has no headache, but she does have neck pain, left shoulder pain, numbness. No blurry vision, double vision. No nausea, vomiting, difficulty swallowing, difficulty chewing. No chest pain or shortness of breath. No bowel or bladder incontinence or retention. No fever or chills. Last bowel movement was 2 days ago. No progressive weakness in the lower extremities or gait instability. PHYSICAL EXAMINATION: General: Well-developed, well-nourished woman seen lying in bed. She is in no acute distress. HEENT: She is normocephalic and atraumatic. Extraocular muscles appear intact. Neck: Supple. Extremities: Without any edema or calf tenderness. Neuromuscular: She is awake, alert, oriented x3. Cranial nerves 2-12 appear grossly intact. She has very limited range of motion, particularly in rotation to the left side. Tenderness in the cervical paraspinals and upper trapezius, left more than right and weakness in the left proximal shoulder girdle. Good strength throughout the right upper extremity and distally in the left upper extremity. She also has diminished sensation in the C5 dermatome to pinprick but otherwise intact, symmetric reflexes in the triceps and normal reflex in the biceps on the right, depressed on the left. She has good strength and range in the lower extremities with normal sensation to pinprick, cold temperature, and symmetric reflexes. OVERALL IMPRESSION: 1. Neck pain. 2. Left shoulder pain. 3. Numbness of the left upper extremity. 4. Underlying cervical stenosis, multiple levels including moderate C3-4 and C5-6 central canal stenosis. 5. Deficits in mobility. 6. History of hypertension. 7. History of diabetes. 8. Elevated body mass index. 9. Elevated risk for deep venous thrombosis due to immobility. PLAN/SUGGESTION: 1. Patient defers electrodiagnostic studies. 2. Patient to proceed with surgical intervention. 3. Will need rehabilitation after surgery. 4. Pain control. 5. Bowel regimen. 6. DVT prophylaxis. Would use SCDs until she has been surgically cleared to start subcutaneous heparin based on her mobility. 7. Disposition to be determined. Thank you for this referral. BENTLEY MULLER M.D. [id number]
[2017-10-16] MEDS: ATORVASTATIN CA 20 MG TABLET (FP) PO SCH (21:29)
[2017-10-16] MEDS ORDERED: CHLORHEXIDINE GLUCONATE 4% CLEANSER FOR DECOLONIZATION TP ONE (22:00)
[2017-10-17] MEDS: metFORMIN HCL 500 MG TABLET (FP) PO SCH ×2 (06:13→18:40)
[2017-10-17] MEDS: LEVOTHYROXINE NA 88 MCG TABLET (FP) PO SCH (06:13)
[2017-10-17] MEDS: GLIMEPIRIDE 2 MG TABLET (FP) PO SCH (06:13)
[2017-10-17 07:29] LABS: BASO % 0.7 % (0-2.0); EOS % 0.3 % (0-4.5); HEMOGLOBIN 11.8 GM/dL (10.7-15.3); LYMPH % 37.7 % (8-40); MCH 27.8 pg (25.7-33.7); MCHC 32.6 g/dl (32.0-36.0); MEAN CELL VOLUME 85.3 fl (80-96); MEAN PLT VOLUME 7.1 fl (7.5-11.1); MONO % 7.5 % (3.8-10.2); NEUT % 53.8 % (42.8-82.8); PLATELET COUNT 355 K/MM3 (134-434); RBC 4.23 M/mm3 (3.60-5.2); RDW 13.9 % (11.6-15.6); WHITE BLOOD COUNT 7.8 K/mm3 (4.0-10.0)
[2017-10-17] MEDS ORDERED: PROPOFOL 20 ML ONE ×3 (07:48→11:40)
[2017-10-17] MEDS ORDERED: MIDAZOLAM HCL 2 MG/2 ML SINGLE DOSE VIAL ONE (07:48)
[2017-10-17] MEDS ORDERED: ROCURONIUM BROMIDE 50 MG/5 ML VIAL ONE ×3 (07:49→13:00)
[2017-10-17 07:52] LABS: ANION GAP 6 (8-16); BLOOD UREA NITROGEN 15 mg/dL (7-18); CALCIUM 8.5 mg/dL (8.5-10.1); CHLORIDE 103 mmol/L (98-107); CO2 31 mmol/L (21-32); CREATININE 0.8 mg/dL (0.55-1.02); GLUCOSE,RANDOM 104 mg/dL (74-106); MAGNESIUM 1.6 mg/dL (1.8-2.4); PHOSPHOROUS 4.9 mg/dL (2.5-4.9); POTASSIUM 4.7 mmol/L (3.5-5.1); SODIUM 140 mmol/L (136-145)
[2017-10-17] MEDS ORDERED: LIDOCAINE 1%/EPI 1:100000 (20 ML MULTI DOSE VIAL) ONE ×2 (08:15→11:26)
[2017-10-17] MEDS ORDERED: GENTAMICIN SO4 80 MG/2 ML VIAL ONE ×2 (08:15→13:07)
[2017-10-17] MEDS ORDERED: BUPIVACAINE HCL/PF 0.5% (5MG/ML) 10 ML VIAL ONE ×2 (08:16→11:26)
[2017-10-17] MEDS ORDERED: THROMBIN (BOVINE) 20,000 UNIT VIAL TP ONE ×2 (08:23→11:26)
[2017-10-17] MEDS ORDERED: LIDOCAINE 1%/EPI 1:100000 (20 ML MULTI DOSE VIAL) IJ ONE ×2 (08:45→12:06)
[2017-10-17] MEDS ORDERED: ceFAZolin SODIUM 1 GM VIAL IVPB ONE (09:15)
[2017-10-17] MEDS ORDERED: VANCOMYCIN 1,000 MG VIAL (RESTRICTED TO ID ONLY) IVPB ONE (09:30)
[2017-10-17] MEDS ORDERED: GELATIN, ABSORBABLE 100 EACH SPONGE TP ONE (09:50)
[2017-10-17] MEDS ORDERED: THROMBIN (BOVINE) 5,000 UNIT VIAL TP ONE (09:50)
[2017-10-17] MEDS ORDERED: GENTAMICIN SO4 80 MG/2 ML VIAL IVPB ONE ×2 (09:55→13:20)
[2017-10-17] MEDS ORDERED: BACITRACIN 50,000 UNITS VIAL TP ONE ×2 (09:55→13:20)
[2017-10-17] MEDS ORDERED: ceFAZolin SODIUM 1 GM VIAL ONE (10:04)
[2017-10-17] MEDS ORDERED: ONDANSETRON 4 MG/2 ML VIAL ONE (10:04)
[2017-10-17] MEDS ORDERED: DEXAMETHASONE SOD PHOSPHATE 4 MG/1 ML VIAL ONE (10:04)
[2017-10-17] MEDS ORDERED: LIDOCAINE HCL 2% JELLY (5 ML/TUBE) ONE (10:04)
[2017-10-17] MEDS ORDERED: LIDOCAINE HCL/PF 2% SDV 5ML VIAL ONE (10:04)
[2017-10-17] MEDS ORDERED: VANCOMYCIN 1,000 MG VIAL (RESTRICTED TO ID ONLY) ONE (10:04)
[2017-10-17] MEDS ORDERED: BACITRACIN 15 GM TUBE TOPICAL OINTMENT ONE (11:26)
[2017-10-17] MEDS ORDERED: ePHEDrine SULFATE 50 MG/1 ML AMPULE ONE (12:35)
[2017-10-17] MEDS ORDERED: GLYCOPYRROLATE 0.2 MG/1 ML VIAL ONE ×2 (13:48→13:49)
[2017-10-17] MEDS ORDERED: NEOSTIGMINE METHYLSULFATE 0.5 MG/ML - 10 ML MDV ONE (13:48)
--- NOTE | 2017-10-17 14:09 | PN ---
Progress Note, Physician Chief Complaint: Ms Hancock is s/p surgery in neck brace, unable to speak at this time. Nods head slightly that her arm is feeling better but is having neck pain. - Current Medication List Current Medications: Active Medications Acetaminophen (Tylenol -) 650 mg PO Q6H PRN PRN Reason: FEVER Last Admin: 10/15/17 23:05 Dose: 650 mg Amlodipine Besylate (Norvasc -) 5 mg PO DAILY [facility] Last Admin: 10/16/17 11:01 Dose: 5 mg Atorvastatin Calcium (Lipitor -) 20 mg PO HS [facility] Last Admin: 10/16/17 21:29 Dose: 20 mg Cyanocobalamin (Vitamin B12 -) 1,000 mcg PO DAILY [facility] Last Admin: 10/16/17 11:01 Dose: 1,000 mcg Glimepiride (Amaryl -) 2 mg PO DAILY@0700 [facility] Last Admin: 10/17/17 06:13 Dose: Not Given Levothyroxine Sodium (Synthroid -) 88 mcg PO DAILY@0700 [facility] Last Admin: 10/17/17 06:13 Dose: 88 mcg Losartan Potassium (Cozaar -) 50 mg PO DAILY [facility] Last Admin: 10/16/17 11:01 Dose: 50 mg Metformin HCl (Glucophage -) 1,000 mg PO BIDAC [facility] Last Admin: 10/17/17 06:13 Dose: Not Given Pantoprazole Sodium (Protonix -) 20 mg PO DAILY [facility] Last Admin: 10/16/17 11:01 Dose: 20 mg Zolpidem Tartrate (Ambien -) 5 mg PO HS PRN PRN Reason: INSOMNIA Last Admin: 10/16/17 22:45 Dose: 5 mg - Objective Vital Signs: Vital Signs Temperature 36.8 C 10/17/17 06:28 Pulse Rate 89 10/17/17 06:28 Respiratory Rate 20 10/17/17 06:28 Blood Pressure 117/52 10/17/17 06:28 O2 Sat by Pulse Oximetry (%) 97 10/16/17 21:00 Constitutional: Yes: Well Nourished, No Distress, Calm Neck: Yes: Other (cervical brace) Cardiovascular: Yes: Regular Rate and Rhythm. No: Gallop, Murmur, Rub Respiratory: Yes: Regular, CTA Bilaterally. No: Rales, Rhonchi, Wheezes Gastrointestinal: Yes: Normal Bowel Sounds, Soft. No: Distention, Tenderness Extremities: Yes: WNL Edema: No Labs: CBC, BMP 10/17/17 06:00 10/17/17 06:00 INR, PTT INR 0.94 (0.82-1.09) 10/15/17 11:53 Problem List - Problems (1) Cervical stenosis of spinal canal Code(s): M48.02 - SPINAL STENOSIS, CERVICAL REGION (2) Diabetes Code(s): E11.9 - TYPE 2 DIABETES MELLITUS WITHOUT COMPLICATIONS (3) HTN (hypertension) Code(s): I10 - ESSENTIAL (PRIMARY) HYPERTENSION (4) Hypothyroid Code(s): E03.9 - HYPOTHYROIDISM, UNSPECIFIED Assessment/Plan (1) Cervical stenosis of spinal canal Assessment/Plan: -s/p cervical corpectomies -in neck brace now -neurosurgery following and managing Code(s): M48.02 - SPINAL STENOSIS, CERVICAL REGION (2) Diabetes Assessment/Plan: -diabetic diet -continue metformin and amaryl Code(s): E11.9 - TYPE 2 DIABETES MELLITUS WITHOUT COMPLICATIONS (3) HTN (hypertension) Assessment/Plan: -controlled -continue norvasc and losartan Code(s): I10 - ESSENTIAL (PRIMARY) HYPERTENSION (4) Hypothyroid Assessment/Plan: -continue synthroid Code(s): E03.9 - HYPOTHYROIDISM, UNSPECIFIED
[2017-10-17] MEDS ORDERED: ONDANSETRON 4 MG/2 ML VIAL IVPUSH PRN (14:24)
[2017-10-17] MEDS ORDERED: HYDROmorphone *PCA* 6MG/30ML DISP.SYRIN PCA SCH (14:30)
[2017-10-17] MEDS ORDERED: LACTATED RINGERS SOLUTION 1,000 ML IV SCH (14:30)
[2017-10-17] MEDS ORDERED: HYDROmorphone *PCA* 6MG/30ML DISP.SYRIN PCA ONE (14:36)
[2017-10-17] MEDS: HYDROmorphone *PCA* 6MG/30ML DISP.SYRIN PCA SCH (14:40)
[2017-10-17] MEDS ORDERED: INSULIN SLIDING SCALE (NOVOLOG) 1 VIAL SQ PRN (14:46)
--- NOTE | 2017-10-17 15:20 | OP ---
Operative Note - Note: Operative Date: 10/17/17 Pre-Operative Diagnosis: cervical spondylosis acute dics herniation, Operation: Cervical corpectomies of C4-C5, ACDF of C3-C6 with peek cage and plate. Cervical laminectomies with possterior fusion of C2-C7 Post-Operative Diagnosis: Same as Pre-op Surgeon: Silverio Goyal Correctional Maintenance Technician: Carolina Perales Anesthesiologist/METAL ROOM DENTAL TECHNICIAN: Yamilet Hooper MD Anesthesia: General Estimated Blood Loss (mls): 500 Drains & Tubes with Location: J/p anterior, J/P posterior, Cooper Fluid Volume Replaced (mls): 1,700 Operative Report Dictated: Yes
--- NOTE | 2017-10-17 15:25 | SURG ---
Surgery Excel V[employer] Developer Note [employer] V[employer] Developer: Carolina Perales PA-C Date of Service: 10/17/17 Diagnosis: cervical spondylosis with acute disc herniations Procedure: Cervical corpectomies of C4-C5, ACDF of C3-C6 with peek cage and plate Cervical laminectomies with possterior fusion of C2-C7 I was present for the entirety of the operative procedure. For further detail, please refer to operative report. Visit type - Case Type Case Type: ED Admission - Emergency Emergency Visit: Yes ED Registration Date: 10/16/17 Care time: The patient presented to the Emergency Department on the above date and was hospitalized for further evaluation of their emergent condition. - New patient This patient is new to me today: Yes Date on this admission: 10/17/17
[2017-10-17] MEDS: SODIUM CHLORIDE 1,000 ML IV SCH (16:15)
[2017-10-17] MEDS: amLODIPine BESYLATE 5 MG TABLET (FP) PO SCH (18:43)
[2017-10-17] MEDS: LOSARTAN POTASSIUM 50 MG TABLET (FP) PO SCH (18:43)
[2017-10-17] MEDS: PANTOPRAZOLE 20 MG TABLET (FP) PO SCH (18:43)
[2017-10-17] MEDS: CYANOCOBALAMIN 1,000 MCG TABLET (FP) PO SCH (18:43)
[2017-10-17] MEDS: CEFAZOLIN 1 GM PUSH 1 GM/10 ML DISP.SYRIN IVPUSH SCH (18:45)
[2017-10-17] MEDS: INSULIN SLIDING SCALE (NOVOLOG) 1 VIAL SQ SCH (18:47)
[2017-10-17] MEDS: ATORVASTATIN CA 20 MG TABLET (FP) PO SCH (21:21)
[2017-10-17] MEDS: HEPARIN NA (PORCINE) 5,000 UNITS/ML 1ML VIAL SQ SCH (21:21)
[2017-10-17] MEDS: ONDANSETRON 4 MG/2 ML VIAL IVPUSH PRN (21:28)
[2017-10-17] MEDS ORDERED: ZOLPIDEM TARTRATE 5 MG TABLET PO PRN (22:00)
[2017-10-18] MEDS: CEFAZOLIN 1 GM PUSH 1 GM/10 ML DISP.SYRIN IVPUSH SCH ×2 (01:07→10:14)
[2017-10-18] MEDS: SODIUM CHLORIDE 1,000 ML IV SCH ×4 (01:23→23:10)
[2017-10-18] MEDS: HEPARIN NA (PORCINE) 5,000 UNITS/ML 1ML VIAL SQ SCH ×3 (05:52→21:43)
[2017-10-18] MEDS: LEVOTHYROXINE NA 88 MCG TABLET (FP) PO SCH (06:14)
[2017-10-18] MEDS: INSULIN SLIDING SCALE (NOVOLOG) 1 VIAL SQ SCH ×3 (06:14→18:10)
[2017-10-18] MEDS: metFORMIN HCL 500 MG TABLET (FP) PO SCH ×2 (06:14→18:10)
[2017-10-18] MEDS: GLIMEPIRIDE 2 MG TABLET (FP) PO SCH (06:14)
[2017-10-18 07:32] LABS: BASO % 0.3 % (0-2.0); HEMATOCRIT 27.8 % (32.4-45.2); HEMOGLOBIN 8.8 GM/dL (10.7-15.3); LYMPH % 12.6 % (8-40); MCH 27.7 pg (25.7-33.7); MCHC 31.8 g/dl (32.0-36.0); MEAN CELL VOLUME 87.1 fl (80-96); MEAN PLT VOLUME 7.2 fl (7.5-11.1); MONO % 8.6 % (3.8-10.2); NEUT % 78.5 % (42.8-82.8); PLATELET COUNT 318 K/MM3 (134-434); RBC 3.19 M/mm3 (3.60-5.2); RDW 14.3 % (11.6-15.6); WHITE BLOOD COUNT 11.6 K/mm3 (4.0-10.0)
[2017-10-18 08:05] LABS: CALCIUM 7.7 mg/dL (8.5-10.1); CHLORIDE 107 mmol/L (98-107); GLUCOSE,RANDOM 116 mg/dL (74-106); POTASSIUM 4.8 mmol/L (3.5-5.1); SODIUM 142 mmol/L (136-145)
[2017-10-18 08:10] LABS: ANION GAP 8 (8-16); BLOOD UREA NITROGEN 18 mg/dL (7-18); CO2 27 mmol/L (21-32); CREATININE 0.9 mg/dL (0.55-1.02); MAGNESIUM 1.7 mg/dL (1.8-2.4); PHOSPHOROUS 4.6 mg/dL (2.5-4.9)
[2017-10-18] MEDS: ONDANSETRON 4 MG/2 ML VIAL IVPUSH PRN (10:13)
[2017-10-18] MEDS: LOSARTAN POTASSIUM 50 MG TABLET (FP) PO SCH (10:16)
[2017-10-18] MEDS: PANTOPRAZOLE 20 MG TABLET (FP) PO SCH (10:16)
[2017-10-18] MEDS: CYANOCOBALAMIN 1,000 MCG TABLET (FP) PO SCH (10:16)
[2017-10-18] MEDS: amLODIPine BESYLATE 5 MG TABLET (FP) PO SCH (10:16)
[2017-10-18] MEDS ORDERED: MAGNESIUM 2GM/50ML STERILE WATER IVPB IVPB ONE (12:15)
--- NOTE | 2017-10-18 12:59 | PN ---
Progress Note, Physician Chief Complaint: Ms Hancock says she is having pain in her neck at the surgery site, however her arm is feeling much better. Still with weakness in the arm but improving. No cp , sob, n/v. - Current Medication List Current Medications: Active Medications Acetaminophen (Tylenol -) 650 mg PO Q6H PRN PRN Reason: FEVER Amlodipine Besylate (Norvasc -) 5 mg PO DAILY [facility] Last Admin: 10/18/17 10:16 Dose: 5 mg Atorvastatin Calcium (Lipitor -) 20 mg PO HS [facility] Last Admin: 10/17/17 21:21 Dose: 20 mg Cyanocobalamin (Vitamin B12 -) 1,000 mcg PO DAILY [facility] Last Admin: 10/18/17 10:16 Dose: 1,000 mcg Fentanyl (Sublimaze Injection -) 50 mcg IVPUSH [id number] PRN PRN Reason: PAIN-PACU ORDER X 4 DOSES ONLY Glimepiride (Amaryl -) 2 mg PO DAILY@0700 [facility] Last Admin: 10/18/17 06:14 Dose: 2 mg Heparin Sodium (Porcine) (Heparin -) 5,000 unit SQ TID [facility] Last Admin: 10/18/17 05:52 Dose: 5,000 unit Hydromorphone HCl (Dilaudid Engineer Third Assistant -) 0 mg PATTERN ROOM ATTENDANT PATTERN ROOM ATTENDANT [facility] PRN Reason: Protocol Stop: 10/24/17 14:25 Last Admin: 10/17/17 14:40 Dose: 6 mg Sodium Chloride (Normal Saline -) 1,000 mls @ 100 mls/hr IV ASDIR [facility] Last Admin: 10/18/17 10:48 Dose: 100 mls/hr Cefazolin Sodium (Ancef -) 1 gm in 10 mls @ 20 mls/hr IVPUSH Q8H-IV [facility] Last Admin: 10/18/17 10:14 Dose: 20 mls/hr Insulin Aspart (Novolog Vial Sliding Scale -) 1 vial SQ TIDAC [facility] PRN Reason: Protocol Last Admin: 10/18/17 06:14 Dose: Not Given Levothyroxine Sodium (Synthroid -) 88 mcg PO DAILY@0700 [facility] Last Admin: 10/18/17 06:14 Dose: 88 mcg Losartan Potassium (Cozaar -) 50 mg PO DAILY [facility] Last Admin: 10/18/17 10:16 Dose: 50 mg Metformin HCl (Glucophage -) 1,000 mg PO BIDAC [facility] Last Admin: 10/18/17 06:14 Dose: 1,000 mg Pantoprazole Sodium (Protonix -) 20 mg PO DAILY [facility] Last Admin: 10/18/17 10:16 Dose: 20 mg Zolpidem Tartrate (Ambien -) 5 mg PO HS PRN PRN Reason: INSOMNIA - Objective Vital Signs: Vital Signs Temperature 37.1 C 10/18/17 06:00 Pulse Rate 104 H 10/18/17 06:00 Respiratory Rate 10/18/17 06:00 Blood Pressure 141/72 10/18/17 06:00 O2 Sat by Pulse Oximetry (%) 97 10/17/17 21:00 Constitutional: Yes: Well Nourished, No Distress, Calm Neck: Yes: Other (hard c-collar, drains in place) Cardiovascular: Yes: Regular Rate and Rhythm. No: Gallop, Murmur, Rub Respiratory: Yes: Regular, CTA Bilaterally. No: Rales, Rhonchi, Wheezes Gastrointestinal: Yes: Normal Bowel Sounds, Soft. No: Distention, Tenderness Extremities: Yes: WNL Edema: No Labs: CBC, BMP 10/18/17 06:00 10/18/17 06:00 INR, PTT INR 0.94 (0.82-1.09) 10/15/17 11:53 Problem List - Problems (1) Cervical stenosis of spinal canal Code(s): M48.02 - SPINAL STENOSIS, CERVICAL REGION (2) Diabetes Code(s): E11.9 - TYPE 2 DIABETES MELLITUS WITHOUT COMPLICATIONS (3) HTN (hypertension) Code(s): I10 - ESSENTIAL (PRIMARY) HYPERTENSION (4) Hypothyroid Code(s): E03.9 - HYPOTHYROIDISM, UNSPECIFIED (5) Anemia Code(s): D64.9 - ANEMIA, UNSPECIFIED Qualifiers: Anemia type: other cause Other causes of anemia: acute posthemorrhagic Qualified Code(s): D62 - Acute posthemorrhagic anemia (6) Leukocytosis Code(s): D72.829 - ELEVATED WHITE BLOOD CELL COUNT, UNSPECIFIED Qualifiers: Leukocytosis type: leukemoid reaction Qualified Code(s): D72.823 - Leukemoid reaction Assessment/Plan (1) Cervical stenosis of spinal canal Assessment/Plan: -s/p cervical corpectomies -in neck brace now -neurosurgery following and managing Code(s): M48.02 - SPINAL STENOSIS, CERVICAL REGION (2) Diabetes Assessment/Plan: -diabetic diet -continue metformin and amaryl Code(s): E11.9 - TYPE 2 DIABETES MELLITUS WITHOUT COMPLICATIONS (3) HTN (hypertension) Assessment/Plan: -controlled -continue norvasc and losartan Code(s): I10 - ESSENTIAL (PRIMARY) HYPERTENSION (4) Hypothyroid Assessment/Plan: -continue synthroid Code(s): E03.9 - HYPOTHYROIDISM, UNSPECIFIED (5) ABLA -secondary to surgery -no need for blood transfusion at this time -expected drop in surgical case (6) Leukocytosis -stress induced -no signs of sepsis
[2017-10-18] MEDS ORDERED: MAGNESIUM SULF 50% (8.12 MEQ/2 ML-1 GM VIAL) ONE (13:54)
[2017-10-18] MEDS ORDERED: HYDROmorphone *PCA* 6MG/30ML DISP.SYRIN PCA ONE (15:03)
[2017-10-18] MEDS: HYDROmorphone *PCA* 6MG/30ML DISP.SYRIN PCA SCH (15:04)
[2017-10-18] MEDS ORDERED: BENZOCAINE/MENTH/CETYLPYRD CL 1 EACH LOZENGE MM PRN (15:14)
--- NOTE | 2017-10-18 15:21 | PROC ---
Procedure Note Procedure: Asked by Dr. Goyal to remove that patients Lacy drains. She is tolerating a diet and OOB. No headaches, residual left arm weakness. Vital Signs Period Temp Pulse Resp BP Sys/David Pulse Ox Last 24 Hr 97.8 F-98.8 F 94-113 16-18 132-152/60-89 95-97 LACY-35 serosangerous(anterior) 40 serosangreous(posterior) posterior/anterior drains removed. Bother incision c/d/i with psoterior/cindy and dermabond and anterior dermabond. No evidence of hematoma or masses.
[2017-10-18] MEDS ORDERED: CEFAZOLIN 1 GM PUSH 1 GM/10 ML DISP.SYRIN IVPUSH ONE (19:00)
[2017-10-18] MEDS: ACETAMINOPHEN 325 MG TABLET (FP) PO PRN (20:47)
[2017-10-18] MEDS: ATORVASTATIN CA 20 MG TABLET (FP) PO SCH (21:43)
[2017-10-18] MEDS ORDERED: PT OWN MED DRAWER 7, Y5N ONE ×2 (21:58→22:15)
[2017-10-19] MEDS: HEPARIN NA (PORCINE) 5,000 UNITS/ML 1ML VIAL SQ SCH ×3 (05:25→21:36)
[2017-10-19] MEDS: ACETAMINOPHEN 325 MG TABLET (FP) PO PRN (05:29)
[2017-10-19] MEDS ORDERED: PT OWN MED DRAWER 7, Y5N ONE ×3 (06:20→10:40)
[2017-10-19] MEDS: GLIMEPIRIDE 2 MG TABLET (FP) PO SCH (06:21)
[2017-10-19] MEDS: metFORMIN HCL 500 MG TABLET (FP) PO SCH ×2 (06:21→17:55)
[2017-10-19] MEDS: LEVOTHYROXINE NA 88 MCG TABLET (FP) PO SCH (06:21)
[2017-10-19] MEDS: INSULIN SLIDING SCALE (NOVOLOG) 1 VIAL SQ SCH ×3 (06:22→17:50)
[2017-10-19 07:53] LABS: CHLORIDE 104 mmol/L (98-107); POTASSIUM 4.1 mmol/L (3.5-5.1); SODIUM 140 mmol/L (136-145)
[2017-10-19 07:58] LABS: ANION GAP 12 (8-16); BLOOD UREA NITROGEN 8 mg/dL (7-18); CALCIUM 7.6 mg/dL (8.5-10.1); CO2 24 mmol/L (21-32); CREATININE 0.6 mg/dL (0.55-1.02); GLUCOSE,RANDOM 129 mg/dL (74-106); MAGNESIUM 1.8 mg/dL (1.8-2.4); PHOSPHOROUS 2.4 mg/dL (2.5-4.9)
[2017-10-19 08:00] LABS: BASO % 0.4 % (0-2.0); HEMATOCRIT 26.2 % (32.4-45.2); HEMOGLOBIN 8.2 GM/dL (10.7-15.3); LYMPH % 9.1 % (8-40); MCH 27.4 pg (25.7-33.7); MCHC 31.4 g/dl (32.0-36.0); MEAN CELL VOLUME 87.2 fl (80-96); MEAN PLT VOLUME 7.2 fl (7.5-11.1); MONO % 7.9 % (3.8-10.2); NEUT % 82.6 % (42.8-82.8); PLATELET COUNT 290 K/MM3 (134-434); RBC 3.01 M/mm3 (3.60-5.2); RDW 13.9 % (11.6-15.6); WHITE BLOOD COUNT 12.4 K/mm3 (4.0-10.0)
--- NOTE | 2017-10-19 10:17 | PN ---
Progress Note (short form) - Note Progress Note: Patient is a 66 year old female who is post-op day #2 s/p cervical corpectomies C-5; ACDF C3-C6 with PEEK cage and plate; Cervical Laminectomies and posterior fusion C2-C7. Medical team managing medical care and treatment; nurse reports fever this morning and will continue antibiotic therapy as per medical team. Drains out. Patient reports doing well except for mild headache. 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 Plan: medical team to manage fevers and antibiotic therapy regimen; Dr. Molina to be called for orders regarding NPO status. Will continue to follow from neurosurgeon.
[2017-10-19] MEDS: PANTOPRAZOLE 20 MG TABLET (FP) PO SCH (10:53)
[2017-10-19] MEDS: CYANOCOBALAMIN 1,000 MCG TABLET (FP) PO SCH (10:53)
[2017-10-19] MEDS: LOSARTAN POTASSIUM 50 MG TABLET (FP) PO SCH (10:53)
[2017-10-19] MEDS: amLODIPine BESYLATE 5 MG TABLET (FP) PO SCH (10:53)
--- NOTE | 2017-10-19 11:33 | PN ---
Progress Note, Physician Chief Complaint: Ms Hancock complains of severe neck pain and pain on swallowing. Denies chest pain, shortness of breath, coughing, abdominal pain, nausea/vomiting, or pain on urination. - Current Medication List Current Medications: Active Medications Acetaminophen (Tylenol -) 650 mg PO Q6H PRN PRN Reason: FEVER Last Admin: 10/19/17 05:29 Dose: 650 mg Amlodipine Besylate (Norvasc -) 5 mg PO DAILY [facility] Last Admin: 10/19/17 10:53 Dose: 5 mg Atorvastatin Calcium (Lipitor -) 20 mg PO HS [facility] Last Admin: 10/18/17 21:43 Dose: 20 mg Benzocaine/Menthol (Cepacol Lozenge -) 1 each MM PRN PRN PRN Reason: SORE THROAT Last Admin: 10/18/17 18:18 Dose: 1 each Cyanocobalamin (Vitamin B12 -) 1,000 mcg PO DAILY [facility] Last Admin: 10/19/17 10:53 Dose: 1,000 mcg Fentanyl (Sublimaze Injection -) 50 mcg IVPUSH [id number] PRN PRN Reason: PAIN-PACU ORDER X 4 DOSES ONLY Glimepiride (Amaryl -) 2 mg PO DAILY@0700 [facility] Last Admin: 10/19/17 06:21 Dose: 2 mg Heparin Sodium (Porcine) (Heparin -) 5,000 unit SQ TID [facility] Last Admin: 10/19/17 05:25 Dose: 5,000 unit Hydromorphone HCl (Dilaudid Machine Stacker -) 0 mg IT ARCHITECTURE CONSULTANT IT ARCHITECTURE CONSULTANT [facility] PRN Reason: Protocol Stop: 10/24/17 14:25 Last Admin: 10/18/17 15:04 Dose: 6 mg Sodium Chloride (Normal Saline -) 1,000 mls @ 100 mls/hr IV ASDIR [facility] Last Admin: 10/18/17 23:10 Dose: 100 mls/hr Insulin Aspart (Novolog Vial Sliding Scale -) 1 vial SQ TIDAC [facility] PRN Reason: Protocol Last Admin: 10/19/17 06:22 Dose: Not Given Levothyroxine Sodium (Synthroid -) 88 mcg PO DAILY@0700 [facility] Last Admin: 10/19/17 06:21 Dose: 88 mcg Losartan Potassium (Cozaar -) 50 mg PO DAILY [facility] Last Admin: 10/19/17 10:53 Dose: 50 mg Metformin HCl (Glucophage -) 1,000 mg PO BIDAC [facility] Last Admin: 10/19/17 06:21 Dose: 1,000 mg Pantoprazole Sodium (Protonix -) 20 mg PO DAILY [facility] Last Admin: 10/19/17 10:53 Dose: 20 mg Zolpidem Tartrate (Ambien -) 5 mg PO HS PRN PRN Reason: INSOMNIA - Objective Vital Signs: Vital Signs Temperature 36.9 C 10/19/17 07:10 Pulse Rate 119 H 10/19/17 05:59 Respiratory Rate 20 10/19/17 05:59 Blood Pressure 123/66 10/19/17 05:59 O2 Sat by Pulse Oximetry (%) 97 10/18/17 21:00 Constitutional: Yes: Well Nourished, No Distress, Calm Neck: Yes: Other (hard c-spine collar in place) Cardiovascular: Yes: Regular Rate and Rhythm. No: Gallop, Murmur, Rub Respiratory: Yes: Regular, CTA Bilaterally. No: Rales, Rhonchi, Wheezes Gastrointestinal: Yes: Normal Bowel Sounds, Soft. No: Distention, Tenderness Extremities: Yes: WNL Edema: No Labs: CBC, BMP 10/19/17 06:00 10/19/17 06:00 INR, PTT INR 0.94 (0.82-1.09) 10/15/17 11:53 Problem List - Problems (1) Cervical stenosis of spinal canal Code(s): M48.02 - SPINAL STENOSIS, CERVICAL REGION (2) Diabetes Code(s): E11.9 - TYPE 2 DIABETES MELLITUS WITHOUT COMPLICATIONS (3) HTN (hypertension) Code(s): I10 - ESSENTIAL (PRIMARY) HYPERTENSION (4) Hypothyroid Code(s): E03.9 - HYPOTHYROIDISM, UNSPECIFIED (5) Anemia Code(s): D64.9 - ANEMIA, UNSPECIFIED Qualifiers: Anemia type: other cause Other causes of anemia: acute posthemorrhagic Qualified Code(s): D62 - Acute posthemorrhagic anemia (6) Leukocytosis Code(s): D72.829 - ELEVATED WHITE BLOOD CELL COUNT, UNSPECIFIED Qualifiers: Leukocytosis type: leukemoid reaction Qualified Code(s): D72.823 - Leukemoid reaction (7) Fever Code(s): R50.9 - FEVER, UNSPECIFIED Assessment/Plan (1) Cervical stenosis of spinal canal Assessment/Plan: -s/p cervical corpectomies -in neck brace now -neurosurgery following and managing Code(s): M48.02 - SPINAL STENOSIS, CERVICAL REGION (2) Diabetes Assessment/Plan: -diabetic diet -continue metformin and amaryl -well controlled Code(s): E11.9 - TYPE 2 DIABETES MELLITUS WITHOUT COMPLICATIONS (3) HTN (hypertension) Assessment/Plan: -controlled -continue norvasc and losartan Code(s): I10 - ESSENTIAL (PRIMARY) HYPERTENSION (4) Hypothyroid Assessment/Plan: -continue synthroid Code(s): E03.9 - HYPOTHYROIDISM, UNSPECIFIED (5) ABLA -secondary to surgery -no need for blood transfusion at this time -expected drop in surgical case (6) Leukocytosis -stress induced -monitor (7) Fever -patient with one fever this am -no cough, rash, or dysuria -chest x-ray reviewed, no sign of pneumonia -check urinalysis for possible UTI -suspect secondary to inflammation -if recurs, order standing antibiotics -continue I/S
[2017-10-19] MEDS: NAPH,MB-DB/K PH,MBDB POWDER PACKET PO SCH ×2 (14:43→21:38)
[2017-10-19] MEDS ORDERED: ONDANSETRON 4 MG TABLET PO PRN (14:58)
--- NOTE | 2017-10-19 14:58 | PROC ---
Procedure Note Procedure: dressing change: Anterior incision, c/d/i with dermabond, trachea midline. neck is flat and no evidence of erythema, edema, d/c or collection. redressed with 4x4 and op site posterior incision, Benito insitu, C/D/I no evidence of erythema, edema, collection or fluctuance. drain site c/d/i redressed with 4x4 and op sites.
[2017-10-19] MEDS: HYDROmorphone *PCA* 6MG/30ML DISP.SYRIN PCA SCH ×2 (15:17→15:22)
[2017-10-19] MEDS: SODIUM CHLORIDE 1,000 ML IV SCH ×2 (15:23→20:21)
[2017-10-19 21:10] LABS: URINE APPEARANCE CLEAR; URINE BILIRUBIN NEGATIVE (NEGATIVE); URINE BLOOD NEGATIVE (NEGATIVE); URINE COLOR LTYELLOW; URINE GLUCOSE (UA) NEGATIVE (NEGATIVE); URINE KETONE 2+ (NEGATIVE); URINE LEUK ESTERASE NEGATIVE (NEGATIVE); URINE NITRITE NEGATIVE (NEGATIVE); URINE PROTEIN NEGATIVE (NEGATIVE); URINE UROBILINOGEN NEGATIVE mg/dL (0.2-1.0)
[2017-10-19] MEDS: ATORVASTATIN CA 20 MG TABLET (FP) PO SCH (21:36)
[2017-10-19] MEDS: DOCUSATE SODIUM 100 MG CAPSULE (FP) PO SCH (21:40)
[2017-10-20] MEDS: NAPH,MB-DB/K PH,MBDB POWDER PACKET PO SCH (05:37)
[2017-10-20] MEDS: HEPARIN NA (PORCINE) 5,000 UNITS/ML 1ML VIAL SQ SCH ×3 (05:38→22:12)
[2017-10-20] MEDS: metFORMIN HCL 500 MG TABLET (FP) PO SCH ×2 (06:14→17:50)
[2017-10-20] MEDS: GLIMEPIRIDE 2 MG TABLET (FP) PO SCH (06:14)
[2017-10-20] MEDS: LEVOTHYROXINE NA 88 MCG TABLET (FP) PO SCH (06:14)
[2017-10-20] MEDS: SODIUM CHLORIDE 1,000 ML IV SCH ×2 (06:25→22:11)
[2017-10-20 08:33] LABS: BASO % 0.6 % (0-2.0); EOS % 0.1 % (0-4.5); HEMATOCRIT 24.7 % (32.4-45.2); LYMPH % 9.6 % (8-40); MCH 28.1 pg (25.7-33.7); MCHC 32.3 g/dl (32.0-36.0); MEAN CELL VOLUME 86.9 fl (80-96); MEAN PLT VOLUME 7.4 fl (7.5-11.1); MONO % 7.9 % (3.8-10.2); NEUT % 81.8 % (42.8-82.8); PLATELET COUNT 322 K/MM3 (134-434); RBC 2.84 M/mm3 (3.60-5.2); WHITE BLOOD COUNT 13.5 K/mm3 (4.0-10.0)
[2017-10-20] MEDS ORDERED: PT OWN MED DRAWER 7, Y5N ONE (08:51)
[2017-10-20] MEDS: INSULIN SLIDING SCALE (NOVOLOG) 1 VIAL SQ SCH ×3 (08:53→17:52)
[2017-10-20] MEDS: amLODIPine BESYLATE 5 MG TABLET (FP) PO SCH (09:11)
[2017-10-20] MEDS: PANTOPRAZOLE 20 MG TABLET (FP) PO SCH (09:11)
[2017-10-20] MEDS: DOCUSATE SODIUM 100 MG CAPSULE (FP) PO SCH ×2 (09:11→22:12)
[2017-10-20] MEDS: LOSARTAN POTASSIUM 50 MG TABLET (FP) PO SCH (09:11)
[2017-10-20] MEDS: CYANOCOBALAMIN 1,000 MCG TABLET (FP) PO SCH (09:11)
[2017-10-20 09:18] LABS: ANION GAP 11 (8-16); BLOOD UREA NITROGEN 9 mg/dL (7-18); CALCIUM 8.1 mg/dL (8.5-10.1); CHLORIDE 104 mmol/L (98-107); CO2 26 mmol/L (21-32); CREATININE 0.5 mg/dL (0.55-1.02); GLUCOSE,RANDOM 114 mg/dL (74-106); MAGNESIUM 1.8 mg/dL (1.8-2.4); POTASSIUM 4.1 mmol/L (3.5-5.1); SODIUM 141 mmol/L (136-145)
--- NOTE | 2017-10-20 16:53 | PN ---
Progress Note, Physician Chief Complaint: Feels improved less pain - Current Medication List Current Medications: Active Medications Acetaminophen (Tylenol -) 650 mg PO Q6H PRN PRN Reason: FEVER Last Admin: 10/19/17 05:29 Dose: 650 mg Amlodipine Besylate (Norvasc -) 5 mg PO DAILY [facility] Last Admin: 10/20/17 09:11 Dose: 5 mg Atorvastatin Calcium (Lipitor -) 20 mg PO HS [facility] Last Admin: 10/19/17 21:36 Dose: 20 mg Benzocaine/Menthol (Cepacol Lozenge -) 1 each MM PRN PRN PRN Reason: SORE THROAT Last Admin: 10/18/17 18:18 Dose: 1 each Cyanocobalamin (Vitamin B12 -) 1,000 mcg PO DAILY [facility] Last Admin: 10/20/17 09:11 Dose: 1,000 mcg Docusate Sodium (Colace -) 100 mg PO BID [facility] Last Admin: 10/20/17 09:11 Dose: 100 mg Glimepiride (Amaryl -) 2 mg PO DAILY@0700 [facility] Last Admin: 10/20/17 06:14 Dose: 2 mg Heparin Sodium (Porcine) (Heparin -) 5,000 unit SQ TID [facility] Last Admin: 10/20/17 14:50 Dose: 5,000 unit Hydromorphone HCl (Dilaudid Veneer Measurer -) 6 mg COLOR DRUM WORKER COLOR DRUM WORKER [facility] PRN Reason: Protocol Stop: 10/24/17 14:25 Last Admin: 10/19/17 15:22 Dose: 6 mg Sodium Chloride (Normal Saline -) 1,000 mls @ 100 mls/hr IV ASDIR [facility] Last Admin: 10/20/17 06:25 Dose: 100 mls/hr Insulin Aspart (Novolog Vial Sliding Scale -) 1 vial SQ TIDAC [facility] PRN Reason: Protocol Last Admin: 10/20/17 12:36 Dose: Not Given Levothyroxine Sodium (Synthroid -) 88 mcg PO DAILY@0700 [facility] Last Admin: 10/20/17 06:14 Dose: 88 mcg Losartan Potassium (Cozaar -) 50 mg PO DAILY [facility] Last Admin: 10/20/17 09:11 Dose: 50 mg Metformin HCl (Glucophage -) 1,000 mg PO BIDAC [facility] Last Admin: 10/20/17 06:14 Dose: 1,000 mg Ondansetron HCl (Zofran -) 8 mg PO Q8H PRN PRN Reason: NAUSEA AND/OR VOMITING Pantoprazole Sodium (Protonix -) 20 mg PO DAILY [facility] Last Admin: 10/20/17 09:11 Dose: 20 mg Polyethylene Glycol (Miralax (For Daily Use) -) 17 gm PO DAILY PRN PRN Reason: CONSTIPATION Zolpidem Tartrate (Ambien -) 5 mg PO HS PRN PRN Reason: INSOMNIA - Objective Vital Signs: Vital Signs Temperature 98.7 F 10/20/17 15:42 Pulse Rate 100 H 10/20/17 15:42 Respiratory Rate 18 10/20/17 15:42 Blood Pressure 136/100 10/20/17 15:42 O2 Sat by Pulse Oximetry (%) 97 10/20/17 09:00 Elderly F not in acute distress hemodynamically stable HEENT: Mm moist, no anemia, PERRLA EOMI NECK: Immobilized in the hard collar s/p surgery CHEST: CTa B/L CVS: S1S2 R no m/g/r ABD: No distention, Non tender Bs + EXT: No samuel afeet, no calf tenderness SUPPORT SERVICES SPECIALIST: AOX3 non focal Labs: CBC, BMP 10/20/17 07:00 10/20/17 07:00 INR, PTT INR 0.94 (0.82-1.09) 10/15/17 11:53 Problem List - Problems (1) Cervical stenosis of spinal canal Assessment/Plan: S/P surgery on COLOR DRUM WORKER Dilaudid for pain control Code(s): M48.02 - SPINAL STENOSIS, CERVICAL REGION (2) HTN (hypertension) Assessment/Plan: Well controlled cont home meds Code(s): I10 - ESSENTIAL (PRIMARY) HYPERTENSION (3) Hypothyroid Assessment/Plan: Cont Levothyroxine Code(s): E03.9 - HYPOTHYROIDISM, UNSPECIFIED (4) T2DM (type 2 diabetes mellitus) Assessment/Plan: Fs are accepatable cont all home meds Code(s): E11.9 - TYPE 2 DIABETES MELLITUS WITHOUT COMPLICATIONS (5) Cervical radiculopathy Assessment/Plan: S/P surgery cont pain management Code(s): M54.12 - RADICULOPATHY, CERVICAL REGION
[2017-10-20] MEDS: ATORVASTATIN CA 20 MG TABLET (FP) PO SCH (22:12)
[2017-10-21] MEDS: SODIUM CHLORIDE 1,000 ML IV SCH ×2 (03:31→20:32)
[2017-10-21] MEDS: metFORMIN HCL 500 MG TABLET (FP) PO SCH ×2 (06:09→17:54)
[2017-10-21] MEDS: GLIMEPIRIDE 2 MG TABLET (FP) PO SCH (06:09)
[2017-10-21] MEDS: LEVOTHYROXINE NA 88 MCG TABLET (FP) PO SCH (06:09)
[2017-10-21] MEDS: HEPARIN NA (PORCINE) 5,000 UNITS/ML 1ML VIAL SQ SCH ×3 (06:09→21:30)
[2017-10-21] MEDS: INSULIN SLIDING SCALE (NOVOLOG) 1 VIAL SQ SCH ×3 (06:16→17:51)
[2017-10-21 08:26] LABS: ANION GAP 7 (8-16); BLOOD UREA NITROGEN 8 mg/dL (7-18); CALCIUM 7.5 mg/dL (8.5-10.1); CHLORIDE 106 mmol/L (98-107); CO2 28 mmol/L (21-32); CREATININE 0.5 mg/dL (0.55-1.02); GLUCOSE,RANDOM 102 mg/dL (74-106); POTASSIUM 4.3 mmol/L (3.5-5.1); SODIUM 141 mmol/L (136-145)
[2017-10-21 08:44] LABS: BASO % 0.8 % (0-2.0); EOS % 0.4 % (0-4.5); HEMATOCRIT 23.7 % (32.4-45.2); HEMOGLOBIN 7.7 GM/dL (10.7-15.3); LYMPH % 14.1 % (8-40); MCH 28.2 pg (25.7-33.7); MCHC 32.5 g/dl (32.0-36.0); MEAN CELL VOLUME 86.9 fl (80-96); MEAN PLT VOLUME 7.4 fl (7.5-11.1); MONO % 7.3 % (3.8-10.2); NEUT % 77.4 % (42.8-82.8); PLATELET COUNT 313 K/MM3 (134-434); RBC 2.73 M/mm3 (3.60-5.2); RDW 14.1 % (11.6-15.6); WHITE BLOOD COUNT 8.9 K/mm3 (4.0-10.0)
[2017-10-21] MEDS: LOSARTAN POTASSIUM 50 MG TABLET (FP) PO SCH (09:06)
[2017-10-21] MEDS: CYANOCOBALAMIN 1,000 MCG TABLET (FP) PO SCH (09:06)
[2017-10-21] MEDS: PANTOPRAZOLE 20 MG TABLET (FP) PO SCH (09:06)
[2017-10-21] MEDS: amLODIPine BESYLATE 5 MG TABLET (FP) PO SCH (09:06)
[2017-10-21] MEDS: DOCUSATE SODIUM 100 MG CAPSULE (FP) PO SCH ×2 (09:06→21:30)
[2017-10-21] MEDS: POLYETHYLENE GLYCOL 3350 119 GM BTL PO PRN (09:11)
--- NOTE | 2017-10-21 13:30 | PN ---
Progress Note, Physician Chief Complaint: Pt. placed on ACID CUTTER by surgical team on 10/19. Pain controlled with no complaints. - Current Medication List Current Medications: Active Medications Acetaminophen (Tylenol -) 650 mg PO Q6H PRN PRN Reason: FEVER Last Admin: 10/19/17 05:29 Dose: 650 mg Amlodipine Besylate (Norvasc -) 5 mg PO DAILY [facility] Last Admin: 10/21/17 09:06 Dose: 5 mg Atorvastatin Calcium (Lipitor -) 20 mg PO HS [facility] Last Admin: 10/20/17 22:12 Dose: 20 mg Benzocaine/Menthol (Cepacol Lozenge -) 1 each MM PRN PRN PRN Reason: SORE THROAT Last Admin: 10/18/17 18:18 Dose: 1 each Cyanocobalamin (Vitamin B12 -) 1,000 mcg PO DAILY [facility] Last Admin: 10/21/17 09:06 Dose: 1,000 mcg Docusate Sodium (Colace -) 100 mg PO BID [facility] Last Admin: 10/21/17 09:06 Dose: 100 mg Glimepiride (Amaryl -) 2 mg PO DAILY@0700 [facility] Last Admin: 10/21/17 06:09 Dose: 2 mg Heparin Sodium (Porcine) (Heparin -) 5,000 unit SQ TID [facility] Last Admin: 10/21/17 06:09 Dose: 5,000 unit Hydromorphone HCl (Dilaudid Professor Of Literacy -) 6 mg ACID CUTTER ACID CUTTER [facility] PRN Reason: Protocol Stop: 10/24/17 14:25 Last Admin: 10/19/17 15:22 Dose: 6 mg Sodium Chloride (Normal Saline -) 1,000 mls @ 100 mls/hr IV ASDIR [facility] Last Admin: 10/21/17 03:31 Dose: 100 mls/hr Insulin Aspart (Novolog Vial Sliding Scale -) 1 vial SQ TIDAC [facility] PRN Reason: Protocol Last Admin: 10/21/17 11:55 Dose: Not Given Levothyroxine Sodium (Synthroid -) 88 mcg PO DAILY@0700 [facility] Last Admin: 10/21/17 06:09 Dose: 88 mcg Losartan Potassium (Cozaar -) 50 mg PO DAILY [facility] Last Admin: 10/21/17 09:06 Dose: 50 mg Metformin HCl (Glucophage -) 1,000 mg PO BIDAC [facility] Last Admin: 10/21/17 06:09 Dose: 1,000 mg Ondansetron HCl (Zofran -) 8 mg PO Q8H PRN PRN Reason: NAUSEA AND/OR VOMITING Pantoprazole Sodium (Protonix -) 20 mg PO DAILY [facility] Last Admin: 10/21/17 09:06 Dose: 20 mg Polyethylene Glycol (Miralax (For Daily Use) -) 17 gm PO DAILY PRN PRN Reason: CONSTIPATION Last Admin: 10/21/17 09:11 Dose: 17 gm - Objective Vital Signs: Vital Signs Temperature 98.4 F 10/21/17 09:00 Pulse Rate 92 H 10/21/17 09:00 Respiratory Rate 20 10/21/17 09:00 Blood Pressure 145/68 10/21/17 09:00 O2 Sat by Pulse Oximetry (%) 97 10/21/17 09:00 Constitutional: Yes: Well Nourished, No Distress, Calm Neurological: Yes: WNL, Alert, Oriented Labs: CBC, BMP 10/21/17 06:45 10/21/17 06:45 INR, PTT INR 0.94 (0.82-1.09) 10/15/17 11:53 Assessment/Plan POD#4 s/p Cervical fusion under GA. On Dilaudid ACID CUTTER for pain. Doing well. Will talk about D/C ACID CUTTER tomorrow.
--- NOTE | 2017-10-21 13:37 | PN ---
Progress Note, Physician Chief Complaint: Feels improved less pain - Current Medication List Current Medications: Active Medications Acetaminophen (Tylenol -) 650 mg PO Q6H PRN PRN Reason: FEVER Last Admin: 10/19/17 05:29 Dose: 650 mg Amlodipine Besylate (Norvasc -) 5 mg PO DAILY [facility] Last Admin: 10/21/17 09:06 Dose: 5 mg Atorvastatin Calcium (Lipitor -) 20 mg PO HS [facility] Last Admin: 10/20/17 22:12 Dose: 20 mg Benzocaine/Menthol (Cepacol Lozenge -) 1 each MM PRN PRN PRN Reason: SORE THROAT Last Admin: 10/18/17 18:18 Dose: 1 each Cyanocobalamin (Vitamin B12 -) 1,000 mcg PO DAILY [facility] Last Admin: 10/21/17 09:06 Dose: 1,000 mcg Docusate Sodium (Colace -) 100 mg PO BID [facility] Last Admin: 10/21/17 09:06 Dose: 100 mg Glimepiride (Amaryl -) 2 mg PO DAILY@0700 [facility] Last Admin: 10/21/17 06:09 Dose: 2 mg Heparin Sodium (Porcine) (Heparin -) 5,000 unit SQ TID [facility] Last Admin: 10/21/17 06:09 Dose: 5,000 unit Hydromorphone HCl (Dilaudid Buffing Machine Tender -) 6 mg RESIDENT SERVICES COORDINATOR RESIDENT SERVICES COORDINATOR [facility] PRN Reason: Protocol Stop: 10/24/17 14:25 Last Admin: 10/19/17 15:22 Dose: 6 mg Sodium Chloride (Normal Saline -) 1,000 mls @ 100 mls/hr IV ASDIR [facility] Last Admin: 10/21/17 03:31 Dose: 100 mls/hr Insulin Aspart (Novolog Vial Sliding Scale -) 1 vial SQ TIDAC [facility] PRN Reason: Protocol Last Admin: 10/21/17 11:55 Dose: Not Given Levothyroxine Sodium (Synthroid -) 88 mcg PO DAILY@0700 [facility] Last Admin: 10/21/17 06:09 Dose: 88 mcg Losartan Potassium (Cozaar -) 50 mg PO DAILY [facility] Last Admin: 10/21/17 09:06 Dose: 50 mg Metformin HCl (Glucophage -) 1,000 mg PO BIDAC [facility] Last Admin: 10/21/17 06:09 Dose: 1,000 mg Ondansetron HCl (Zofran -) 8 mg PO Q8H PRN PRN Reason: NAUSEA AND/OR VOMITING Pantoprazole Sodium (Protonix -) 20 mg PO DAILY [facility] Last Admin: 10/21/17 09:06 Dose: 20 mg Polyethylene Glycol (Miralax (For Daily Use) -) 17 gm PO DAILY PRN PRN Reason: CONSTIPATION Last Admin: 10/21/17 09:11 Dose: 17 gm - Objective Vital Signs: Vital Signs Temperature 98.4 F 10/21/17 09:00 Pulse Rate 92 H 10/21/17 09:00 Respiratory Rate 20 10/21/17 09:00 Blood Pressure 145/68 10/21/17 09:00 O2 Sat by Pulse Oximetry (%) 97 10/21/17 09:00 Elder;y F not in acute distress hemodynamically stable HEENT: Mm moist, no anemia, PERRLA EOMI NECK: Immobalized in the hard colar s/p surgery CHEST: CTa B/L CVS: S1S2 R no m/g/r ABD: No distention, Non tender Bs + EXT: No samuel afeet, no calf tenderness MOTORBOAT MECHANIC HELPER: AOX3 non focal Labs: CBC, BMP 10/21/17 06:45 10/21/17 06:45 INR, PTT INR 0.94 (0.82-1.09) 10/15/17 11:53 Problem List - Problems (1) Cervical stenosis of spinal canal Assessment/Plan: S/P surgery on RESIDENT SERVICES COORDINATOR Dilaudid for pain control Code(s): M48.02 - SPINAL STENOSIS, CERVICAL REGION (2) HTN (hypertension) Assessment/Plan: Well controlled cont home meds Code(s): I10 - ESSENTIAL (PRIMARY) HYPERTENSION (3) Hypothyroid Assessment/Plan: Cont Levothyroxine Code(s): E03.9 - HYPOTHYROIDISM, UNSPECIFIED (4) T2DM (type 2 diabetes mellitus) Assessment/Plan: Fs are accepatable cont all home meds Code(s): E11.9 - TYPE 2 DIABETES MELLITUS WITHOUT COMPLICATIONS (5) Cervical radiculopathy Assessment/Plan: S/P surgery cont pain management Code(s): M54.12 - RADICULOPATHY, CERVICAL REGION
[2017-10-21] MEDS: HYDROmorphone *PCA* 6MG/30ML DISP.SYRIN PCA SCH (18:57)
[2017-10-21] MEDS: ATORVASTATIN CA 20 MG TABLET (FP) PO SCH (21:30)
[2017-10-21] MEDS: ACETAMINOPHEN 325 MG TABLET (FP) PO PRN (22:51)
[2017-10-22] MEDS: HEPARIN NA (PORCINE) 5,000 UNITS/ML 1ML VIAL SQ SCH ×3 (06:08→21:56)
[2017-10-22] MEDS: metFORMIN HCL 500 MG TABLET (FP) PO SCH ×2 (06:08→15:45)
[2017-10-22] MEDS: LEVOTHYROXINE NA 88 MCG TABLET (FP) PO SCH (06:08)
[2017-10-22] MEDS: GLIMEPIRIDE 2 MG TABLET (FP) PO SCH (06:10)
[2017-10-22] MEDS: INSULIN SLIDING SCALE (NOVOLOG) 1 VIAL SQ SCH ×3 (08:08→18:06)
[2017-10-22] MEDS: HYDROmorphone *PCA* 6MG/30ML DISP.SYRIN PCA SCH (08:25)
[2017-10-22] MEDS: DOCUSATE SODIUM 100 MG CAPSULE (FP) PO SCH (09:07)
[2017-10-22] MEDS: amLODIPine BESYLATE 5 MG TABLET (FP) PO SCH (09:07)
[2017-10-22] MEDS: LOSARTAN POTASSIUM 50 MG TABLET (FP) PO SCH (09:07)
[2017-10-22] MEDS: PANTOPRAZOLE 20 MG TABLET (FP) PO SCH (09:08)
[2017-10-22] MEDS: POLYETHYLENE GLYCOL 3350 119 GM BTL PO PRN (09:09)
[2017-10-22] MEDS: CYANOCOBALAMIN 1,000 MCG TABLET (FP) PO SCH (09:18)
[2017-10-22] MEDS ORDERED: DOCUSATE SODIUM 100 MG CAPSULE (FP) PO PRN (09:52)
[2017-10-22] MEDS ORDERED: oxyCODONE HCL 5 MG TABLET PO PRN (09:53)
--- NOTE | 2017-10-22 09:59 | PN ---
Progress Note (short form) - Note Progress Note: Surgery POD #5 S/p cervical corpectomies and ACDF C3-C6, C2-C7 Laminectomies and posterior fusion. Patient seen and examined at bedside. Patient states her pain is controlled and she has been OOB and ambulating without assistance. She is tolerating her diet and her dysphagia is improved although she still has some discomfort with swallowing and takes sips of water with each bite. She is voiding spontaneously and has had some loose BMs this morning only. she denies any CP, fever, chills, SOB, V/N, and Headaches. she also states that her radicular pain/paresthesias in b/l UE is gone and her overall strength is improving. Vital Signs Temp 98.8 F 18 06:00 Pulse 88 18 06:00 Resp 18 18 06:00 BP 141/66 10/22/17 06:00 Pulse Ox 97 10/21/17 21:00 Intake & Output 18 18 10/22/17 11:59 23:59 11:59 Other: Voiding Method Toilet Toilet Bowel Movement No CBC, BMP 18 06:45 18 06:45 PE: A&Ox3, NAD unlabored resp on RA Posterior incision, c/d/i with cindy insitu and dermabond, no erythema, edema or evidence of collection/ infection, no d/c, drain site well healed. re- dressed with 4x4 and op site. Anterior incision c/d/i with dermabond, trachea midline, neck flat with no evidence or erythema, edema, collection/ infection or d/c. re-dresed b/L UE- Left UE 3/5 strength with thin film technician and flexion/extension at elbow and wrist. Right UE 5/5 strength. NVID Problem List - Problems (1) Cervical radiculopathy Assessment/Plan: POD #5 multilevel ACDF and posterior fusion with asymptomatic post op anemia. Upper extremity strength and overall function improving Plan: 1) Iron supplement 2) D/c COMBINER and start oral pain mngt 3) Continue DVT prophylaxis b/l scds and SQ heparin. 4) Trend H&H 5) OOB as tolerated 6) continue c-collar 23/hours a day 7) D/c planing for home tomorrow if medically stable. Evaluation and plan discussed with Dr Goyal Code(s): M54.12 - RADICULOPATHY, CERVICAL REGION
[2017-10-22] MEDS: FERROUS SO4 325 MG TABLET (FP) PO SCH ×2 (11:17→18:05)
[2017-10-22] MEDS: oxyCODONE HCL 5 MG TABLET PO PRN ×3 (11:17→21:56)
[2017-10-22] MEDS: ACETAMINOPHEN 325 MG TABLET (FP) PO PRN ×2 (11:18→15:44)
--- NOTE | 2017-10-22 11:25 | PN ---
Progress Note (short form) - Note Progress Note: POD #5 - s/p cervical fusion. BENCH SCIENTIST discontinued earlier this morning. Pt. now on oxycodone po. Will sign off case. Reconsult if needed.
--- NOTE | 2017-10-22 12:52 | DS ---
Physical Examination Vital Signs: Vital Signs Temperature 98.4 F 10/22/17 10:00 Pulse Rate 97 H 10/22/17 10:00 Respiratory Rate 16 10/22/17 12:08 Blood Pressure 162/69 10/22/17 10:00 O2 Sat by Pulse Oximetry (%) 97 10/22/17 12:08 Elderly aged F not in acute distress hemodynamically stable HEENT: Mm moist, no anemia, PERRLA EOMI NECK: Immobilized in the hard colar s/p surgery CHEST: CTa B/L CVS: S1S2 R no m/g/r ABD: No distention, Non tender Bs + EXT: No edema feet, no calf tenderness CONTACT LENS MOLDER: AOX3 non focal Labs: CBC, BMP 10/21/17 06:45 10/21/17 06:45 Discharge Summary Reason For Visit: SPINAL STENOSIS OF CERVICAL REGION Current Active Problems Anemia (Acute) Cervical radiculopathy (Acute) Cervical stenosis of spinal canal (Acute) Diabetes (Acute) Fever (Acute) HTN (hypertension) (Acute) Hypothyroid (Acute) Leukocytosis (Acute) T2DM (type 2 diabetes mellitus) (Acute) Weakness (Acute) Procedures: Principal: Cervical corpectomies and ACDF C3-C6, C2-C7 Laminectomies and posterior fusion. Hospital Course: 66 yrs old F with H/O HTN, T2DM, High Cholestrol chronic neck pain with Left sided radicular pain underwent Cervical corpectomies and ACDF C3-C6, C2-C7 Laminectomies and posterior fusion. Symptoms improved is being Dc Home Condition: Stable - Instructions Diet, Activity, Other Instructions: Dr. Goyal Discharge Instructions Dear Mayra Dobbs Post Operative Instructions Physical activity Resume your normal everyday activity as tolerated no heavy lifting or exercise until seen by your surgeon. You may walk unlimited amounts and climb stairs. Do not drive a vehicle until cleared by your surgeon. Wear the c-collar 23 hours/ day, you may remove it to shower only. Wound care Keep incision clean and dry. You can shower but cover the incision with plastic wrap, after, pat dry and re-apply clean, dry dressing. Do not submerge the incision until cindy are removed by your surgeon. Do not apply ointments or cream over incision sites Diet There are no dietary restrictions. Eat healthy, high-fiber foods. Drink 6 to 8 glasses of liquid each day. This will assist in keeping your bowels are regular. Pain management You may take Tylenol or acetaminophen. Any pain prescription medication ordered should be taken as prescribed for moderate to severe pain. Call for any of the following: Severe pain not relieved by medication Fever of 101 or higher Excessive bleeding or drainage on dressing Inability to urinate New or worsening neurological symptoms Call the office to confirm your follow up appointment . Disposition: HOME - Home Medications Comprehensive Discharge Medication List: Ambulatory Orders Aspirin [ASA -] 81 mg PO DAILY 02/11/14 Glimepiride 2 mg PO DAILY 02/11/14 Levothyroxine [Synthroid -] 88 mcg PO DAILY 02/11/14 Omeprazole [Prilosec (RX)] 20 mg PO DAILY 02/11/14 metFORMIN HCL [Glucophage] 1,000 mg PO BID 02/11/14 Amlodipine Besylate [Norvasc -] 5 mg PO DAILY 06/08/17 Atorvastatin Ca [Lipitor] 20 mg PO HS 06/08/17 Cholecalciferol (Vitamin D3) [Vitamin D3 -] 2,000 unit PO DAILY 06/08/17 Losartan Potassium 50 mg PO DAILY 06/08/17 Vitamin B Complex [B Complex] 1 each PO DAILY 06/08/17 Ascorbic Acid [Vitamin C] 500 mg PO DAILY 10/15/17 Biotin 5,000 mcg PO DAILY 10/15/17 Cyanocobalamin [Vitamin B12 -] 1,000 mcg PO DAILY 10/15/17 L.acidoph,Paracasei, B.lactis [Probiotic] 1 each PO DAILY 10/15/17 [place]-3 Fatty Acids/Fish Oil [Fish Oil 1,000 mg Capsule] 1 each PO DAILY Vitamin E 400 unit PO DAILY 10/15/17 Zolpidem Tartrate [Ambien] 5 mg PO HS 10/15/17 oxyCODONE HCL [Roxicodone -] 10 mg PO Q4H PRN 7 Days #30 tablet MDD 4 10/22/17
[2017-10-22 13:15] LABS: LDH 190 U/L (84-246)
--- NOTE | 2017-10-22 17:22 | PN ---
Progress Note, Physician Chief Complaint: Feels improved less pain - Current Medication List Current Medications: Active Medications Acetaminophen (Tylenol -) 650 mg PO Q6H PRN PRN Reason: FEVER Last Admin: 10/22/17 15:44 Dose: 650 mg Amlodipine Besylate (Norvasc -) 5 mg PO DAILY [facility] Last Admin: 10/22/17 09:07 Dose: 5 mg Atorvastatin Calcium (Lipitor -) 20 mg PO HS [facility] Last Admin: 10/21/17 21:30 Dose: 20 mg Benzocaine/Menthol (Cepacol Lozenge -) 1 each MM PRN PRN PRN Reason: SORE THROAT Last Admin: 10/18/17 18:18 Dose: 1 each Cyanocobalamin (Vitamin B12 -) 1,000 mcg PO DAILY [facility] Last Admin: 10/22/17 09:18 Dose: 1,000 mcg Docusate Sodium (Colace -) 100 mg PO BID PRN PRN Reason: CONSTIPATION Ferrous Sulfate (Feosol -) 325 mg PO BIDWM [facility] Last Admin: 10/22/17 11:17 Dose: 325 mg Glimepiride (Amaryl -) 2 mg PO DAILY@0700 [facility] Last Admin: 10/22/17 06:10 Dose: 2 mg Heparin Sodium (Porcine) (Heparin -) 5,000 unit SQ TID [facility] Last Admin: 10/22/17 13:36 Dose: Not Given Insulin Aspart (Novolog Vial Sliding Scale -) 1 vial SQ TIDAC [facility] PRN Reason: Protocol Last Admin: 10/22/17 12:05 Dose: Not Given Levothyroxine Sodium (Synthroid -) 88 mcg PO DAILY@0700 [facility] Last Admin: 10/22/17 06:08 Dose: 88 mcg Losartan Potassium (Cozaar -) 50 mg PO DAILY [facility] Last Admin: 10/22/17 09:07 Dose: 50 mg Metformin HCl (Glucophage -) 1,000 mg PO BIDAC [facility] Last Admin: 10/22/17 15:45 Dose: 1,000 mg Ondansetron HCl (Zofran -) 8 mg PO Q8H PRN PRN Reason: NAUSEA AND/OR VOMITING Oxycodone HCl (Roxicodone -) 5 mg PO Q4H PRN PRN Reason: PAIN LEVEL 1-5 Oxycodone HCl (Roxicodone -) 10 mg PO Q4H PRN PRN Reason: PAIN LEVEL 6-10 Last Admin: 10/22/17 15:44 Dose: 10 mg Pantoprazole Sodium (Protonix -) 20 mg PO DAILY [facility] Last Admin: 10/22/17 09:08 Dose: 20 mg Polyethylene Glycol (Miralax (For Daily Use) -) 17 gm PO DAILY PRN PRN Reason: CONSTIPATION Last Admin: 10/22/17 09:09 Dose: 17 gm - Objective Vital Signs: Vital Signs Temperature 98.2 F 10/22/17 15:19 Pulse Rate 88 10/22/17 15:19 Respiratory Rate 20 10/22/17 15:19 Blood Pressure 145/70 10/22/17 15:19 O2 Sat by Pulse Oximetry (%) 97 10/22/17 12:08 elderly aged F not in acute distress hemodynamically stable HEENT: Mm moist, no anemia, PERRLA EOMI NECK: Immobilized in the hard colar s/p surgery CHEST: CTa B/L CVS: S1S2 R no m/g/r ABD: No distention, Non tender Bs + EXT: No edema feet, no calf tenderness LOAD BLOCKER: AOX3 non focal Labs: CBC, BMP 10/21/17 06:45 10/21/17 06:45 INR, PTT INR 0.94 (0.82-1.09) 10/15/17 11:53 Problem List - Problems (1) Cervical stenosis of spinal canal Assessment/Plan: S/P surgery pain is well controlled HOME HOSPICE AIDE pump stopped now on Oxycodone 10 mg q 6 Hrly PRN Code(s): M48.02 - SPINAL STENOSIS, CERVICAL REGION (2) HTN (hypertension) Assessment/Plan: Well controlled cont home meds Code(s): I10 - ESSENTIAL (PRIMARY) HYPERTENSION (3) Hypothyroid Assessment/Plan: Cont Levothyroxine Code(s): E03.9 - HYPOTHYROIDISM, UNSPECIFIED (4) T2DM (type 2 diabetes mellitus) Assessment/Plan: Fs are accepatable cont all home meds Code(s): E11.9 - TYPE 2 DIABETES MELLITUS WITHOUT COMPLICATIONS (5) Cervical radiculopathy Assessment/Plan: S/P surgery cont pain management Code(s): M54.12 - RADICULOPATHY, CERVICAL REGION
[2017-10-22] MEDS: ATORVASTATIN CA 20 MG TABLET (FP) PO SCH (21:56)
[2017-10-23] MEDS: oxyCODONE HCL 5 MG TABLET PO PRN ×2 (04:15→10:25)
[2017-10-23] MEDS: HEPARIN NA (PORCINE) 5,000 UNITS/ML 1ML VIAL SQ SCH ×2 (05:59→14:31)
[2017-10-23] MEDS: metFORMIN HCL 500 MG TABLET (FP) PO SCH (06:00)
[2017-10-23] MEDS: GLIMEPIRIDE 2 MG TABLET (FP) PO SCH (06:00)
[2017-10-23 06:06] LABS: SERUM IRON SATURATION 5 % (15-55); TOTAL IRON BINDING CAPACITY 305 ug/dL (250-450); UIBC 290 ug/dL (118-369)
[2017-10-23] MEDS ORDERED: INSULIN (NOVOLOG) ASPART 100 UNITS/ML 10ML VIAL ONE (07:06)
[2017-10-23] MEDS: LEVOTHYROXINE NA 88 MCG TABLET (FP) PO SCH (07:09)
[2017-10-23] MEDS: INSULIN SLIDING SCALE (NOVOLOG) 1 VIAL SQ SCH ×2 (07:09→11:57)
[2017-10-23] MEDS: FERROUS SO4 325 MG TABLET (FP) PO SCH (08:04)
[2017-10-23 10:16] LABS: BASO % 0.5 % (0-2.0); EOS % 0.2 % (0-4.5); HEMATOCRIT 26.7 % (32.4-45.2); HEMOGLOBIN 8.9 GM/dL (10.7-15.3); LYMPH % 15.8 % (8-40); MCH 28.1 pg (25.7-33.7); MCHC 33.3 g/dl (32.0-36.0); MEAN CELL VOLUME 84.4 fl (80-96); MEAN PLT VOLUME 6.9 fl (7.5-11.1); MONO % 8.1 % (3.8-10.2); NEUT % 75.4 % (42.8-82.8); PLATELET COUNT 420 K/MM3 (134-434); RBC 3.16 M/mm3 (3.60-5.2); RDW 13.8 % (11.6-15.6); WHITE BLOOD COUNT 8.2 K/mm3 (4.0-10.0)
[2017-10-23] MEDS: CYANOCOBALAMIN 1,000 MCG TABLET (FP) PO SCH (10:26)
[2017-10-23] MEDS: LOSARTAN POTASSIUM 50 MG TABLET (FP) PO SCH (10:26)
[2017-10-23] MEDS: PANTOPRAZOLE 20 MG TABLET (FP) PO SCH (10:26)
[2017-10-23 10:27] LABS: ALBUMIN 3.2 g/dl (3.4-5.0); ANION GAP 9 (8-16); BLOOD UREA NITROGEN 5 mg/dL (7-18); CALCIUM 8.3 mg/dL (8.5-10.1); CHLORIDE 99 mmol/L (98-107); CO2 32 mmol/L (21-32); CREATININE 0.6 mg/dL (0.55-1.02); GLUCOSE,RANDOM 84 mg/dL (74-106); POTASSIUM 3.2 mmol/L (3.5-5.1); SGOT/AST 10 U/L (15-37); SGPT/ALT 14 U/L (12-78); SODIUM 140 mmol/L (136-145)
[2017-10-23] MEDS: amLODIPine BESYLATE 5 MG TABLET (FP) PO SCH (10:29)
[2017-10-23 10:30] LABS: ALK PHOS 62 U/L (45-117); BILIRUBIN,TOTAL 0.5 mg/dL (0.2-1.0); TOT PROT 6.6 g/dl (6.4-8.2)
[2017-10-23] MEDS ORDERED: POTASSIUM CHLORIDE TABS 20 MEQ TABLET.ER (FP) PO ONE (11:15)
[2017-10-23 15:12] VITALS: BP 151/79; PULSE 91; TEMP 98.5
== END 2017-10-23 16:14 | disposition home health service (06) | DRG 472 ==
LOC: JER 11:02 → JERBED 13:50 → J8W 17:39 → OBSVTOIN 10-16 12:22
PROVIDERS: ADMIT Internal Medicine; ATTEND Internal Medicine
PROC: 01N10ZZ Release Cervical Nerve, Open Approach (ICD-10-PCS; 2017-10-17)
PROC: 0RG20A0 Fusion of 2 or more Cervical Vertebral Joints with Interbody Fusion Device, Anterior Approach, Anterior Column, Open Approach (ICD-10-PCS; 2017-10-17)
PROC: 00QT0ZZ Repair Spinal Meninges, Open Approach (ICD-10-PCS; 2017-10-17)
PROC: 0JR707Z Replacement of Back Subcutaneous Tissue and Fascia with Autologous Tissue Substitute, Open Approach (ICD-10-PCS; 2017-10-17)
PROC: 0RB30ZZ Excision of Cervical Vertebral Disc, Open Approach (ICD-10-PCS; principal; 2017-10-17 08:00)
PROC: 0RG20AJ Fusion of 2 or more Cervical Vertebral Joints with Interbody Fusion Device, Posterior Approach, Anterior Column, Open Approach (ICD-10-PCS; 2017-10-17 08:00)
DX: M48.02 Spinal stenosis, cervical region (principal); D62 Acute posthemorrhagic anemia; M50.01 Cervical disc disorder with myelopathy, high cervical region; E11.9 Type 2 diabetes mellitus without complications; E03.9 Hypothyroidism, unspecified; I10 Essential (primary) hypertension; D72.828 Other elevated white blood cell count; R50.9 Fever, unspecified; D72.823 Leukemoid reaction; M54.12 Radiculopathy, cervical region; M54.2 Cervicalgia; M40.292 Other kyphosis, cervical region; Z86.73 Personal history of transient ischemic attack (TIA), and cerebral infarction without residual deficits; Z87.891 Personal history of nicotine dependence
CPT/HCPCS: 36415; 70450-TC; 70551-TC; 71045-TC-FY; 72125-TC; 72141-TC; 76000-TC-FY; 80048; 80053; 81003; 82465; 82550; 82607; 82728; 82962; 83540; 83550; 83615; 83718; 83721; 83735; 84100; 84478; 84484; 85025; 85610; 85730; 86850; 86900; 86901; 93005; 93010; 94760; 95860-TC; 97116-GP; 97161-GP; 99285-25; G0378; J1170; J1644; J7030

== ENCOUNTER 2018-06-25 06:04 | Inpatient (IN) | payer OTHER ==
[2018-06-21 17:53] VITALS: BMI 32.0
--- NOTE | 2018-06-25 07:27 | HP ---
History & Physical Update - History History: No Change - Physical Physical: No Change - Assessment Assessment: No Change - Plan Plan: No Change (No changes since visit with Dr Little on 06/13/18)
[2018-06-25] MEDS ORDERED: VANCOMYCIN 1,000 MG VIAL (RESTRICTED TO ID ONLY) ONE ×2 (07:36→09:28)
[2018-06-25] MEDS ORDERED: GENTAMICIN SO4 80 MG/2 ML VIAL ONE (07:36)
[2018-06-25] MEDS ORDERED: BUPIVACAINE HCL/PF 0.5% (5MG/ML) 10 ML VIAL ONE ×2 (07:38→10:09)
[2018-06-25] MEDS ORDERED: THROMBIN (BOVINE) 20,000 UNIT VIAL TP ONE (07:54)
[2018-06-25] MEDS ORDERED: MIDAZOLAM HCL 2 MG/2 ML SINGLE DOSE VIAL ONE (08:02)
[2018-06-25] MEDS ORDERED: ROCURONIUM BROMIDE 50 MG/5 ML VIAL ONE (08:02)
[2018-06-25] MEDS ORDERED: PROPOFOL 20 ML ONE ×2 (08:02→11:40)
[2018-06-25] MEDS ORDERED: LIDOCAINE HCL/PF 2% SDV 5ML VIAL ONE (08:15)
[2018-06-25] MEDS ORDERED: PROMETHAZINE HCL 25 MG/1 ML VIAL IVPUSH PRN (08:32)
[2018-06-25] MEDS ORDERED: ONDANSETRON 4 MG/2 ML VIAL IVPUSH PRN ×3 (08:32→13:08)
[2018-06-25] MEDS ORDERED: LACTATED RINGERS SOLUTION 1,000 ML IV SCH (08:45)
[2018-06-25] MEDS ORDERED: BUPIVACAINE LIPOSOME/PF (EXPAREL) 266 MG/20 ML VIAL NR ONE (08:45)
[2018-06-25] MEDS ORDERED: SODIUM CHLORIDE 0.9% P/F 10 ML VIAL IJ ONE ×3 (09:28→09:57)
[2018-06-25] MEDS ORDERED: ceFAZolin SODIUM 1 GM VIAL ONE ×2 (09:28→17:01)
[2018-06-25] MEDS ORDERED: ceFAZolin SODIUM 1 GM VIAL IVPB ONE (09:29)
[2018-06-25] MEDS ORDERED: VANCOMYCIN 1 GRAM (PRE-DOCKED) 1,000 MG/250 ML BAG IVPB ONE (09:30)
[2018-06-25] MEDS ORDERED: LIDOCAINE 1%/EPI 1:100000 (50 ML MULTI DOSE VIAL) NR ONE (09:32)
[2018-06-25] MEDS ORDERED: ONDANSETRON 4 MG/2 ML VIAL ONE ×2 (09:37→11:20)
[2018-06-25] MEDS ORDERED: DEXAMETHASONE SOD PHOSPHATE 4 MG/1 ML VIAL ONE ×2 (09:37→11:20)
[2018-06-25] MEDS ORDERED: ePHEDrine SULFATE 50 MG/1 ML AMPULE ONE (09:40)
[2018-06-25] MEDS ORDERED: morphine SULFATE/Preservative Free 0.5 MG/ML (1cc Syringe) EP ONE ×2 (09:45→13:08)
[2018-06-25] MEDS ORDERED: GENTAMICIN SO4 80 MG/2 ML VIAL IVPB ONE (10:00)
[2018-06-25] MEDS ORDERED: BACITRACIN 50,000 UNITS VIAL NR ONE ×2 (10:00)
[2018-06-25] MEDS ORDERED: BUPIVACAINE HCL/PF 0.25% (2.5MG/ML) 10 ML VIAL ONE (10:09)
[2018-06-25] MEDS ORDERED: BUPIVACAINE LIPOSOME/PF (EXPAREL) 266 MG/20 ML VIAL IJ ONE (10:19)
[2018-06-25] MEDS ORDERED: BUPIVACAINE HCL/PF 0.25% (2.5MG/ML) 10 ML VIAL IJ ONE (10:20)
[2018-06-25] MEDS ORDERED: GLYCOPYRROLATE 0.2 MG/1 ML VIAL ONE (11:21)
[2018-06-25] MEDS ORDERED: NEOSTIGMINE METHYLSULFATE 0.5 MG/1 ML - 10 ML MDV ONE (11:22)
[2018-06-25] MEDS ORDERED: DESFLURANE GAS 240 ML BOTTLE IH ONE (12:09)
[2018-06-25] MEDS: METOCLOPRAMIDE HCL INJECTION 10 MG/2 ML VIAL IVPUSH ONE ×2 (12:45→20:05)
[2018-06-25] MEDS ORDERED: diphenhydrAMINE HCL 25 MG CAPSULE (FP) PO PRN (12:50)
[2018-06-25] MEDS ORDERED: oxyCODONE HCL 5 MG TABLET PO PRN (12:50)
[2018-06-25] MEDS ORDERED: morphine CARPU-JECT 4 MG/1 ML DISP.SYRIN IVPUSH PRN (12:50)
[2018-06-25] MEDS: ACETAMINOPHEN 1000 MG/100 ML VIAL (NON FORMULARY) IVPB ONE ×2 (12:55→20:05)
--- NOTE | 2018-06-25 13:26 | OP ---
Operative Note - Note: Operative Date: 06/25/18 Pre-Operative Diagnosis: Lumbar stenosis with Radiculopathy, HNP Operation: L5-S1 laminectomies, microsurgical excision of HNP, interbody cage arthrodesis L5-S1 posterior lateral fusion with pedicle screws Post-Operative Diagnosis: Same as Pre-op Surgeon: Silverio Goyal Software Implementation Specialist: Carolina Perales Anesthesiologist/[employer]INTER OPERATOR: Jack Cardenas Anesthesia: General, Spinal Estimated Blood Loss (mls): 50 Drains & Tubes with Location: LACY to right lumbar paravetebral Drains, Volume Out (mls): 30 (Cooper) Fluid Volume Replaced (mls): 1,600 Operative Report Dictated: Yes
--- NOTE | 2018-06-25 13:27 | SURG ---
Surgery Linotype Operator Note Linotype Operator: Carolina Perales PA-C Date of Service: 06/25/18 Diagnosis: Lumbar stenosis Radiculopathy Procedure: L5-S1 laminectomies, microsurgical excision of HNP, interbody cage arthrodesis L5-S1 posterior lateral fusion with pedicle screws I was present for the entirety of the operative procedure. For further detail, please refer to operative report. Visit type - Case Type Case Type: Scheduled - Emergency Emergency Visit: No - New patient This patient is new to me today: Yes Date on this admission: 06/25/18
--- NOTE | 2018-06-25 14:30 | CONSULT ---
Consult Consult Specialty:: Internal Medicine Referred by:: Neurosurgery Reason for Consultation:: admission post surgery - History of Present Illness Chief Complaint: I feel fine History of Present Illness: Ms Hancock is a pleasant 67 year old female with compression and instability s/p lumbar fusion. I am seeing patient post-operatively in the PACU and she is without complaint. She says she feels fine. Denies fevers, chills, lightheadedness, dizziness, passing out, chest pain or pressure, shortness of breath, nausea, vomiting, diarrhea, constipation, difficulty or pain on urination, back pain, numbness, tingling, or edema. - History Source History Provided By: Patient Limitations to Obtaining History: No Limitations - Past Medical History Cardio/Vascular: Yes: HTN, Hyperlipdemia Endocrine: Yes: Diabetes Mellitus, Hypothyroidism - Alcohol/Substance Use Hx Alcohol Use: Yes (social) - Smoking History Smoking history: Former smoker Have you smoked in the past 12 months: No If you are a former smoker, when did you quit?: 2006 - Social History ADL: Independent Place of : [facility] History of Recent Travel: No Home Medications - Allergies Allergies/Adverse Reactions: Allergies Allergy/AdvReac Type Severity Reaction Status Date / Time No Known Allergies Allergy Verified 06/25/18 06:44 - Home Medications Home Medications: Ambulatory Orders Aspirin [ASA -] 81 mg PO DAILY 02/11/14 Glimepiride 2 mg PO DAILY 02/11/14 Levothyroxine [Synthroid -] 88 mcg PO DAILY 02/11/14 Omeprazole [Prilosec (RX)] 20 mg PO DAILY PRN 02/11/14 metFORMIN HCL [Glucophage] 1,000 mg PO BID 02/11/14 Amlodipine Besylate [Norvasc -] 5 mg PO DAILY 06/08/17 Atorvastatin Ca [Lipitor] 20 mg PO DAILY 06/08/17 Cholecalciferol (Vitamin D3) [Vitamin D3 -] 2,000 unit PO DAILY 06/08/17 Losartan Potassium 50 mg PO DAILY 06/08/17 Vitamin B Complex [B Complex] 1 each PO DAILY 06/08/17 Ascorbic Acid [Vitamin C] 500 mg PO DAILY 10/15/17 Biotin 5,000 mcg PO DAILY 10/15/17 Cyanocobalamin [Vitamin B12 -] 1,000 mcg PO DAILY 02/12/18 L.acidoph,Paracasei, B.lactis [Probiotic] 1 each PO DAILY 10/15/17 Vitamin E 400 unit PO DAILY 10/15/17 Zolpidem Tartrate [Ambien] 5 mg PO HS 10/15/17 Family Disease History - Family Disease History Family History: Unremarkable Review of Systems Findings/Remarks: Full review of systems obtained, as per HPI and otherwise negative Physical Exam Vital Signs: Vital Signs Temperature 37.3 C 06/25/18 12:31 Pulse Rate 86 06/25/18 13:30 Respiratory Rate 18 06/25/18 13:30 Blood Pressure 94/46 L 06/25/18 13:30 O2 Sat by Pulse Oximetry (%) 98 06/25/18 13:30 Constitutional: Yes: No Distress, Calm, Obese Eyes: Yes: Conjunctiva Clear, EOM Intact, PERRL HENT: Yes: Atraumatic, Normocephalic Cardiovascular: Yes: Regular Rate and Rhythm. No: Gallop, Murmur, Rub Respiratory: Yes: Regular, CTA Bilaterally. No: Rales, Rhonchi, Wheezes Gastrointestinal: Yes: Normal Bowel Sounds, Soft. No: Distention, Tenderness Extremities: Yes: WNL Edema: No Labs: Glucose 132 Imaging - Results Cat Scan: Report Reviewed Problem List - Problems (1) HLD (hyperlipidemia) Assessment/Plan: -continue statin Code(s): E78.5 - HYPERLIPIDEMIA, UNSPECIFIED (2) Diabetes Assessment/Plan: -diabetic diet -continue metformin and amaryl -FSBS and SSI Code(s): E11.9 - TYPE 2 DIABETES MELLITUS WITHOUT COMPLICATIONS (3) HTN (hypertension) Assessment/Plan: -low after surgery secondary to anesthesia -can restart amlodipine and losartan Code(s): I10 - ESSENTIAL (PRIMARY) HYPERTENSION (4) Hypothyroid Assessment/Plan: -continue synthroid Code(s): E03.9 - HYPOTHYROIDISM, UNSPECIFIED
[2018-06-25] MEDS ORDERED: DEXTROSE 5%-WATER - 50 ML IVPB ONE (17:01)
[2018-06-25] MEDS: metFORMIN HCL 500 MG TABLET (FP) PO SCH (17:32)
[2018-06-25] MEDS: CEFAZOLIN 1 GM in DEXTROSE 5%-WATER - 50 ML IVPB SCH (17:32)
[2018-06-25] MEDS: SODIUM CHLORIDE 1,000 ML IV SCH (17:37)
[2018-06-25] MEDS: INSULIN SLIDING SCALE (NOVOLOG) 1 VIAL SQ SCH (18:00)
[2018-06-25] MEDS: oxyCODONE HCL 5 MG TABLET PO PRN (19:39)
[2018-06-25] MEDS: DOCUSATE SODIUM 100 MG CAPSULE (FP) PO SCH ×2 (20:06→21:10)
[2018-06-25] MEDS: ATORVASTATIN CA 20 MG TABLET (FP) PO SCH (21:10)
[2018-06-25] MEDS: HEPARIN NA (PORCINE) 5,000 UNITS/ML 1ML VIAL SQ SCH (21:10)
[2018-06-25] MEDS ORDERED: PATIENT'S OWN MEDICATION (NON-FORMULARY) (Metformin Hcl [Glucophage] 1,000 MG) PO SCH (22:00)
[2018-06-25] MEDS: ZOLPIDEM TARTRATE 5 MG TABLET PO SCH (23:38)
[2018-06-26] MEDS ORDERED: ceFAZolin SODIUM 1 GM VIAL ONE ×3 (01:04→20:29)
[2018-06-26] MEDS ORDERED: DEXTROSE 5%-WATER - 50 ML IVPB ONE ×3 (01:05→20:29)
[2018-06-26] MEDS: CEFAZOLIN 1 GM in DEXTROSE 5%-WATER - 50 ML IVPB SCH ×3 (01:13→20:36)
[2018-06-26] MEDS: SODIUM CHLORIDE 1,000 ML IV SCH ×2 (03:42→16:51)
[2018-06-26] MEDS: HEPARIN NA (PORCINE) 5,000 UNITS/ML 1ML VIAL SQ SCH ×3 (05:33→23:02)
[2018-06-26] MEDS: DOCUSATE SODIUM 100 MG CAPSULE (FP) PO SCH ×3 (05:34→23:01)
[2018-06-26] MEDS: INSULIN SLIDING SCALE (NOVOLOG) 1 VIAL SQ SCH ×3 (06:01→16:53)
[2018-06-26 06:35] LABS: HEMATOCRIT 27.2 % (32.4-45.2); HEMOGLOBIN 8.8 GM/dL (10.7-15.3); MCH 27.1 pg (25.7-33.7); MCHC 32.2 g/dl (32.0-36.0); MEAN CELL VOLUME 84.2 fl (80-96); MEAN PLT VOLUME 7.2 fl (7.5-11.1); PLATELET COUNT 308 K/MM3 (134-434); RBC 3.23 M/mm3 (3.60-5.2); RDW 16.5 % (11.6-15.6); WHITE BLOOD COUNT 10.6 K/mm3 (4.0-10.0)
[2018-06-26] MEDS: LEVOTHYROXINE NA 88 MCG TABLET (FP) PO SCH (06:47)
[2018-06-26] MEDS: metFORMIN HCL 500 MG TABLET (FP) PO SCH ×2 (06:47→16:51)
[2018-06-26] MEDS: GLIMEPIRIDE 2 MG TABLET (FP) PO SCH (06:47)
[2018-06-26 07:13] LABS: ANION GAP 5 MMOL/L (8-16); BLOOD UREA NITROGEN 18 mg/dL (7-18); CALCIUM 7.8 mg/dL (8.5-10.1); CHLORIDE 108 mmol/L (98-107); CO2 28 mmol/L (21-32); CREATININE 0.9 mg/dL (0.55-1.3); GLUCOSE,RANDOM 110 mg/dL (74-106); MAGNESIUM 1.7 mg/dL (1.8-2.4); PHOSPHOROUS 5.6 mg/dL (2.5-4.9); POTASSIUM 4.6 mmol/L (3.5-5.1); SODIUM 141 mmol/L (136-145)
--- NOTE | 2018-06-26 08:50 | PN ---
Progress Note (short form) - Note Progress Note: POD1 Pt seen and examined. Doing well this morning. States she had a lot of nausea and vomiting yesterday due to oxycodone, was able to tolerate 5mg this AM. Tolerated clears yesterday. Has not been oob yet, has not had PO yet. Denies cp , sob, n/v/d, calf pain/edema, headaches, diziness, motor/sensory weakness. Vital Signs Temp 98.9 F 06/26/18 04:00 Pulse 91 H 06/26/18 04:00 Resp 20 06/26/18 04:00 BP 111/58 L 06/26/18 04:00 Pulse Ox 95 06/25/18 20:45 Intake & Output 06/25/18 06/25/18 06/26/18 11:59 23:59 11:59 Intake Total 1600 1000 1250 Output Total 75 630 200 Balance 0417 097 5604 Weight 164 lb Intake: IV 1600 1000 1200 Normal Saline - 1,000 ml 200 1200 @ 100 mls/hr IV ASDIR JONATHAN Rx#:[id number] IVPB 50 Output: Drainage 80 0 Right Back 20 0 Urine 25 550 200 Cannon 300 200 Estimated Blood Loss 50 Other: Voiding Method Indwelling Catheter Height 5 ft Body Mass Index (BMI) 32.0 CBC, BMP 06/26/18 05:30 06/26/18 05:30 Gen: awake, alert, nad Resp: cta b/l CV: rrr, s1s2 Lower back: dressing c/d/ LACY in place with minimal serosanguinous drainage in reservoir (tubing stripped) Neuro: b/l le dorsiflexion/plantar flexion 5/5, hip flexion/extension 5/5, SILT B/L A/P: 67 y/o F w/ PMHx hld, NIDDM, hld, Lumbar stenosis Radiculopathy, s/p L5- S1 laminectomies, microsurgical excision of HNP, interbody cage arthrodesis L5- S1 posterior lateral fusion with pedicle screws on 06/25. Exam stable, pain well controlled, some n/v last night, improved this AM. LACY drain output 20cc overnight Oxycodone 5/10mg q4hrs prn, Morphine 4mg q4hrs prn for btp (discussed changing meds to Ultram if n/v continues pt would like to have breakfast prior to any adjustments) D/C cannon Incentive spirometry encouraged OOB with assistance TLSO in place while ambulating FS, ISS VS per routine Neurovascular checks per routine Monitor and record drain output Continue Ancef 1g q8hrs while drain is in place DVT prophylaxis with Heparin 5000units q8hrs, b/l scds Advance diet as tolerated Continue IVF until tolerating PO Bowel regimen as ordered Home meds as ordered discussed with attending Dr Jones
[2018-06-26] MEDS ORDERED: FLU VACCINE QUAD 60 MCG/0.5 ML (MDV 18-19) IM ONE (10:00)
[2018-06-26] MEDS: FERROUS SO4 325 MG TABLET (FP) PO SCH (10:14)
[2018-06-26] MEDS: PANTOPRAZOLE 20 MG TABLET (FP) PO SCH (10:14)
[2018-06-26] MEDS: LOSARTAN POTASSIUM 50 MG TABLET (FP) PO SCH (10:14)
[2018-06-26] MEDS: amLODIPine BESYLATE 5 MG TABLET (FP) PO SCH (10:14)
[2018-06-26] MEDS: FOLIC ACID 1 MG TABLET (FP) PO SCH (10:15)
--- NOTE | 2018-06-26 10:22 | PN ---
Progress Note (short form) - Note Progress Note: Anesthesia POD#1 S/P L5-S1 Laminectomy and fusion,Placement of Cage under GA and Duramorph VSS,had N/V last night,doing well now,stated orals now. Oral pain meds are sufficient. Adia Vincent MD.
[2018-06-26] MEDS: oxyCODONE HCL 5 MG TABLET PO PRN ×3 (10:30→20:54)
--- NOTE | 2018-06-26 12:25 | PN ---
Progress Note (short form) - Note Progress Note: Posterior lumbar drain was removed at bedside without incident, wound was closed with dermabond and dry dressing.
--- NOTE | 2018-06-26 14:59 | PN ---
Progress Note, Physician Chief Complaint: Ms Hancock says she is doing well. Says her pain is well controlled. No cp, sob, n/v. - Current Medication List Current Medications: Active Medications Amlodipine Besylate (Norvasc -) 5 mg PO DAILY [facility] Last Admin: 06/26/18 10:14 Dose: 5 mg Atorvastatin Calcium (Lipitor -) 20 mg PO HS [facility] Last Admin: 06/25/18 21:10 Dose: 20 mg Diphenhydramine HCl (Benadryl -) 25 mg PO Q6H PRN PRN Reason: FOR ITCHING Diphenhydramine HCl (Benadryl Injection -) 25 mg IVPUSH Q4H PRN PRN Reason: Pruritis Docusate Sodium (Colace -) 100 mg PO TID [facility] Last Admin: 06/26/18 05:34 Dose: 100 mg Ferrous Sulfate (Feosol -) 325 mg PO DAILY@0800 [facility] Last Admin: 06/26/18 10:14 Dose: 325 mg Folic Acid (Folic Acid -) 1 mg PO DAILY [facility] Last Admin: 06/26/18 10:15 Dose: 1 mg Glimepiride (Amaryl -) 2 mg PO ACBK [facility] Last Admin: 06/26/18 06:47 Dose: 2 mg Heparin Sodium (Porcine) (Heparin -) 5,000 unit SQ TID [facility] Last Admin: 06/26/18 05:33 Dose: 5,000 unit Cefazolin Sodium 1 gm/ (Dextrose) 50 mls @ 100 mls/hr IVPB Q8H-IV [facility] Last Admin: 06/26/18 10:14 Dose: 100 mls/hr Sodium Chloride (Normal Saline -) 1,000 mls @ 100 mls/hr IV ASDIR [facility] Last Admin: 06/26/18 03:42 Dose: 100 mls/hr Insulin Aspart (Novolog Vial Sliding Scale -) 1 vial SQ TIDAC [facility]; Protocol Last Admin: 06/26/18 11:41 Dose: Not Given Levothyroxine Sodium (Synthroid -) 88 mcg PO ACBK [facility] Last Admin: 06/26/18 06:47 Dose: 88 mcg Losartan Potassium (Cozaar -) 50 mg PO DAILY [facility] Last Admin: 06/26/18 10:14 Dose: 50 mg Metformin HCl (Glucophage -) 1,000 mg PO BIDI [facility] Last Admin: 06/26/18 06:47 Dose: 1,000 mg Morphine Sulfate (Morphine Injection -) 4 mg IVPUSH Q4H PRN PRN Reason: PAIN LEVEL 4 - 6 Ondansetron HCl (Zofran Injection) 4 mg IVPUSH Q6H PRN PRN Reason: NAUSEA AND/OR VOMITING Ondansetron HCl (Zofran Injection) 4 mg IVPUSH Q6H PRN PRN Reason: NAUSEA Last Admin: 06/25/18 18:21 Dose: 4 mg Ondansetron HCl (Zofran Injection) 4 mg IVPUSH Q4H PRN PRN Reason: NAUSEA Last Admin: 06/25/18 21:16 Dose: 4 mg Oxycodone HCl (Roxicodone -) 5 mg PO Q4H PRN PRN Reason: PAIN LEVEL 1-5 Last Admin: 06/26/18 05:34 Dose: 5 mg Oxycodone HCl (Roxicodone -) 10 mg PO Q4H PRN PRN Reason: PAIN LEVEL 6-10 Last Admin: 06/26/18 10:30 Dose: 10 mg Pantoprazole Sodium (Protonix -) 20 mg PO DAILY [facility] Last Admin: 06/26/18 10:14 Dose: 20 mg Promethazine HCl (Phenergan Injection -) 12.5 mg IVPUSH Q6H PRN PRN Reason: NAUSEA-FOR RESCUE AFTER 15 MIN Zolpidem Tartrate (Ambien -) 5 mg PO HS [facility] Last Admin: 06/25/18 23:38 Dose: 5 mg - Objective Vital Signs: Vital Signs Temperature 36.7 C 06/26/18 08:32 Pulse Rate 93 H 06/26/18 08:32 Respiratory Rate 18 06/26/18 08:32 Blood Pressure 116/57 L 06/26/18 08:32 O2 Sat by Pulse Oximetry (%) 95 06/25/18 20:45 Constitutional: Yes: No Distress, Calm, Obese Neck: Yes: Other (in brace) Cardiovascular: Yes: Regular Rate and Rhythm. No: Gallop, Murmur, Rub Respiratory: Yes: Regular, CTA Bilaterally. No: Rales, Rhonchi, Wheezes Gastrointestinal: Yes: Normal Bowel Sounds, Soft. No: Distention, Tenderness Extremities: Yes: WNL Edema: No Labs: CBC, BMP 10/24/18 05:30 06/26/18 05:30 Problem List - Problems (1) HLD (hyperlipidemia) Code(s): E78.5 - HYPERLIPIDEMIA, UNSPECIFIED (2) Diabetes Code(s): E11.9 - TYPE 2 DIABETES MELLITUS WITHOUT COMPLICATIONS (3) HTN (hypertension) Code(s): I10 - ESSENTIAL (PRIMARY) HYPERTENSION (4) Hypothyroid Code(s): E03.9 - HYPOTHYROIDISM, UNSPECIFIED Assessment/Plan (1) HLD (hyperlipidemia) Assessment/Plan: -continue lipitor Code(s): E78.5 - HYPERLIPIDEMIA, UNSPECIFIED (2) Diabetes Assessment/Plan: -diabetic diet -continue metformin and amaryl -FSBS and SSI -controlled Code(s): E11.9 - TYPE 2 DIABETES MELLITUS WITHOUT COMPLICATIONS (3) HTN (hypertension) Assessment/Plan: -continue amlodipine and losartan -well controlled Code(s): I10 - ESSENTIAL (PRIMARY) HYPERTENSION (4) Hypothyroid Assessment/Plan: -continue synthroid Code(s): E03.9 - HYPOTHYROIDISM, UNSPECIFIED Dispo -discharge when cleared by neurosurgery -outpatient ENT consult for sporadic dysphagia
[2018-06-26] MEDS ORDERED: PT OWN MED DRAWER 7, Y5N ONE (20:29)
[2018-06-26] MEDS: ATORVASTATIN CA 20 MG TABLET (FP) PO SCH (23:01)
[2018-06-26] MEDS: ZOLPIDEM TARTRATE 5 MG TABLET PO SCH (23:02)
[2018-06-27] MEDS ORDERED: ceFAZolin SODIUM 1 GM VIAL ONE (01:19)
[2018-06-27] MEDS ORDERED: DEXTROSE 5%-WATER - 50 ML IVPB ONE (01:19)
[2018-06-27] MEDS: CEFAZOLIN 1 GM in DEXTROSE 5%-WATER - 50 ML IVPB SCH (02:04)
[2018-06-27] MEDS: oxyCODONE HCL 5 MG TABLET PO PRN ×3 (02:08→20:00)
[2018-06-27] MEDS ORDERED: PT OWN MED DRAWER 7, Y5N ONE (06:06)
[2018-06-27] MEDS: DOCUSATE SODIUM 100 MG CAPSULE (FP) PO SCH ×3 (06:11→22:14)
[2018-06-27] MEDS: LEVOTHYROXINE NA 88 MCG TABLET (FP) PO SCH (06:11)
[2018-06-27] MEDS: HEPARIN NA (PORCINE) 5,000 UNITS/ML 1ML VIAL SQ SCH ×3 (06:11→22:19)
[2018-06-27] MEDS: metFORMIN HCL 500 MG TABLET (FP) PO SCH ×2 (06:11→18:41)
[2018-06-27] MEDS: GLIMEPIRIDE 2 MG TABLET (FP) PO SCH (06:11)
[2018-06-27] MEDS: INSULIN SLIDING SCALE (NOVOLOG) 1 VIAL SQ SCH ×3 (06:12→18:40)
[2018-06-27 07:18] LABS: BASO % 0.8 % (0-2.0); EOS % 0.1 % (0-4.5); HEMATOCRIT 28.4 % (32.4-45.2); HEMOGLOBIN 9.1 GM/dL (10.7-15.3); LYMPH % 14.1 % (8-40); MEAN CELL VOLUME 84.2 fl (80-96); MEAN PLT VOLUME 7.3 fl (7.5-11.1); MONO % 8.6 % (3.8-10.2); NEUT % 76.4 % (42.8-82.8); PLATELET COUNT 308 K/MM3 (134-434); RBC 3.37 M/mm3 (3.60-5.2); WHITE BLOOD COUNT 12.7 K/mm3 (4.0-10.0)
[2018-06-27 07:34] LABS: ANION GAP 8 MMOL/L (8-16); BLOOD UREA NITROGEN 11 mg/dL (7-18); CHLORIDE 104 mmol/L (98-107); CO2 26 mmol/L (21-32); CREATININE 0.8 mg/dL (0.55-1.3); GLUCOSE,RANDOM 144 mg/dL (74-106); MAGNESIUM 1.6 mg/dL (1.8-2.4); PHOSPHOROUS 2.7 mg/dL (2.5-4.9); POTASSIUM 4.2 mmol/L (3.5-5.1); SODIUM 139 mmol/L (136-145)
--- NOTE | 2018-06-27 08:01 | PN ---
Progress Note (short form) - Note Progress Note: POD 2 Pt seen and examined. Laying across bed in pain. Reports feeling she "did too much yesterday" regarding ambulation. Reports being oob to chair and ambulating in the halls multiple times without issue until this AM. Currently reports pain is 8/10 since this AM. Tolerated PO yesterday without n/v. Voiding without difficulty. Denies cp, sob, n/v/d, calf pain or edema, motor/sensory deficit. Vital Signs Temp 99.5 F 06/27/18 06:45 Pulse 113 H 06/27/18 06:45 Resp 20 06/27/18 06:45 BP 133/64 06/27/18 06:45 Pulse Ox 95 06/25/18 20:45 Intake & Output 06/26/18 06/26/18 06/27/18 11:59 23:59 11:59 Intake Total 1250 1843 Output Total 200 210 Balance 1050 1633 Intake: IV 1200 963 Normal Saline - 1,000 ml 1200 963 @ 100 mls/hr IV ASDIR JONATHAN Rx#:[id number] IVPB 50 200 Oral 680 Output: Drainage 0 10 Right Back 0 10 Urine 200 200 Cooper 200 Void 200 Other: Voiding Method Toilet # Unmeasured Voids Cooper 2 Void 3 Bowel Movement No CBC, BMP 06/27/18 06:00 06/27/18 06:00 Gen: awake, alert, laying across bed appears to be in moderate pain Resp: cta b/l CV: rrr, s1s2 Lower back: dressing c/d/i, LACY site dressing with minimal serosanguinous drainage (LACY removed yesterday) Neuro: b/l le dorsiflexion/plantar flexion 5/5, hip flexion/extension limited due to pain, SILT B/L A/P: 67 y/o F w/ PMHx hld, NIDDM, hld, Lumbar stenosis Radiculopathy, now s/p L5-S1 laminectomies, microsurgical excision of HNP, interbody cage arthrodesis L5-S1 posterior lateral fusion with pedicle screws on 06/25. Exam diminished secondary to pain. Tolerating pain meds without n/v. May be d/c'ed later today if pain is controlled on PO pain meds Oxycodone 5/10mg q4hrs prn, Morphine 4mg q4hrs prn for btp Incentive spirometry encouraged OOB with assistance TLSO in place while ambulating FS, ISS VS per routine Neurovascular checks per routine Monitor and record drain output DVT prophylaxis with Heparin 5000units q8hrs, b/l scds Advance diet as tolerated Continue IVF until tolerating PO Bowel regimen as ordered Home meds as ordered will discuss with attending
[2018-06-27] MEDS: FOLIC ACID 1 MG TABLET (FP) PO SCH (09:08)
[2018-06-27] MEDS: amLODIPine BESYLATE 5 MG TABLET (FP) PO SCH (09:09)
[2018-06-27] MEDS: LOSARTAN POTASSIUM 50 MG TABLET (FP) PO SCH (09:09)
[2018-06-27] MEDS: FERROUS SO4 325 MG TABLET (FP) PO SCH (09:09)
[2018-06-27] MEDS: PANTOPRAZOLE 20 MG TABLET (FP) PO SCH (09:10)
[2018-06-27] MEDS ORDERED: MAGNESIUM OXIDE 400 MG TABLET (FP) PO ONE (11:30)
--- NOTE | 2018-06-27 11:36 | PN ---
Progress Note, Physician Chief Complaint: Ms Hancock says she feels like she overdid it yesterday. Feeling tired today and with pain. Also with some nausea secondary to pain medication. No cp or sob. - Current Medication List Current Medications: Active Medications Amlodipine Besylate (Norvasc -) 5 mg PO DAILY [facility] Last Admin: 06/27/18 09:09 Dose: 5 mg Atorvastatin Calcium (Lipitor -) 20 mg PO HS [facility] Last Admin: 06/26/18 23:01 Dose: 20 mg Diphenhydramine HCl (Benadryl -) 25 mg PO Q6H PRN PRN Reason: FOR ITCHING Diphenhydramine HCl (Benadryl Injection -) 25 mg IVPUSH Q4H PRN PRN Reason: Pruritis Docusate Sodium (Colace -) 100 mg PO TID [facility] Last Admin: 06/27/18 06:11 Dose: 100 mg Ferrous Sulfate (Feosol -) 325 mg PO DAILY@0800 [facility] Last Admin: 06/27/18 09:09 Dose: 325 mg Folic Acid (Folic Acid -) 1 mg PO DAILY [facility] Last Admin: 06/27/18 09:08 Dose: 1 mg Glimepiride (Amaryl -) 2 mg PO [facility] Last Admin: 06/27/18 06:11 Dose: 2 mg Heparin Sodium (Porcine) (Heparin -) 5,000 unit SQ TID [facility] Last Admin: 06/27/18 06:11 Dose: 5,000 unit Insulin Aspart (Novolog Vial Sliding Scale -) 1 vial SQ TIDAC [facility]; Protocol Last Admin: 06/27/18 06:12 Dose: Not Given Levothyroxine Sodium (Synthroid -) 88 mcg PO [facility] Last Admin: 06/27/18 06:11 Dose: 88 mcg Losartan Potassium (Cozaar -) 50 mg PO DAILY [facility] Last Admin: 06/27/18 09:09 Dose: 50 mg Magnesium Oxide (Mag-Ox -) 800 mg PO ONCE ONE Stop: 06/27/18 11:31 Metformin HCl (Glucophage -) 1,000 mg PO BIDI [facility] Last Admin: 06/27/18 06:11 Dose: 1,000 mg Morphine Sulfate (Morphine Injection -) 4 mg IVPUSH Q4H PRN PRN Reason: PAIN LEVEL 4 - 6 Ondansetron HCl (Zofran Injection) 4 mg IVPUSH Q6H PRN PRN Reason: NAUSEA AND/OR VOMITING Ondansetron HCl (Zofran Injection) 4 mg IVPUSH Q6H PRN PRN Reason: NAUSEA Last Admin: 06/25/18 18:21 Dose: 4 mg Ondansetron HCl (Zofran Injection) 4 mg IVPUSH Q4H PRN PRN Reason: NAUSEA Last Admin: 06/25/18 21:16 Dose: 4 mg Oxycodone HCl (Roxicodone -) 5 mg PO Q4H PRN PRN Reason: PAIN LEVEL 1-5 Last Admin: 06/26/18 05:34 Dose: 5 mg Oxycodone HCl (Roxicodone -) 10 mg PO Q4H PRN PRN Reason: PAIN LEVEL 6-10 Last Admin: 06/27/18 09:09 Dose: 10 mg Pantoprazole Sodium (Protonix -) 20 mg PO DAILY [facility] Last Admin: 06/27/18 09:10 Dose: 20 mg Promethazine HCl (Phenergan Injection -) 12.5 mg IVPUSH Q6H PRN PRN Reason: NAUSEA-FOR RESCUE AFTER 15 MIN Zolpidem Tartrate (Ambien -) 5 mg PO HS [facility] Last Admin: 06/26/18 23:02 Dose: 5 mg - Objective Vital Signs: Vital Signs Temperature 37.5 C 06/27/18 06:45 Pulse Rate 113 H 06/27/18 06:45 Respiratory Rate 20 06/27/18 06:45 Blood Pressure 133/64 06/27/18 06:45 O2 Sat by Pulse Oximetry (%) 95 06/25/18 20:45 Constitutional: Yes: No Distress, Calm, Obese Cardiovascular: Yes: Regular Rate and Rhythm. No: Gallop, Murmur, Rub Respiratory: Yes: Regular, CTA Bilaterally. No: Rales, Rhonchi, Wheezes Gastrointestinal: Yes: Normal Bowel Sounds, Soft. No: Distention, Tenderness Extremities: Yes: WNL Edema: No Labs: CBC, BMP 06/27/18 06:00 06/27/18 06:00 Problem List - Problems (1) HLD (hyperlipidemia) Code(s): E78.5 - HYPERLIPIDEMIA, UNSPECIFIED (2) Diabetes Code(s): E11.9 - TYPE 2 DIABETES MELLITUS WITHOUT COMPLICATIONS (3) HTN (hypertension) Code(s): I10 - ESSENTIAL (PRIMARY) HYPERTENSION (4) Hypothyroid Code(s): E03.9 - HYPOTHYROIDISM, UNSPECIFIED (5) Hypomagnesemia Code(s): E83.42 - HYPOMAGNESEMIA Assessment/Plan (1) HLD (hyperlipidemia) Assessment/Plan: -continue lipitor Code(s): E78.5 - HYPERLIPIDEMIA, UNSPECIFIED (2) Diabetes Assessment/Plan: -diabetic diet -continue metformin and amaryl -FSBS and SSI -controlled Code(s): E11.9 - TYPE 2 DIABETES MELLITUS WITHOUT COMPLICATIONS (3) HTN (hypertension) Assessment/Plan: -continue amlodipine and losartan -well controlled Code(s): I10 - ESSENTIAL (PRIMARY) HYPERTENSION (4) Hypothyroid Assessment/Plan: -continue synthroid Code(s): E03.9 - HYPOTHYROIDISM, UNSPECIFIED (5) Hypomagnesemia -replace with oral magnesium Dispo -discharge when cleared by neurosurgery
[2018-06-27] MEDS ORDERED: INSULIN (NOVOLOG) ASPART 100 UNITS/ML 10ML VIAL ONE (18:51)
[2018-06-27] MEDS ORDERED: INSULIN (LEVEMIR) 100 UNITS/ML UNITS SQ ONE (18:51)
[2018-06-27] MEDS: ZOLPIDEM TARTRATE 5 MG TABLET PO SCH (22:14)
[2018-06-27] MEDS: ATORVASTATIN CA 20 MG TABLET (FP) PO SCH (22:14)
[2018-06-28] MEDS ORDERED: morphine SULFATE 4 MG/ML VIAL IVPUSH PRN (03:13)
[2018-06-28] MEDS: HEPARIN NA (PORCINE) 5,000 UNITS/ML 1ML VIAL SQ SCH ×2 (06:16→14:07)
[2018-06-28] MEDS: DOCUSATE SODIUM 100 MG CAPSULE (FP) PO SCH ×2 (06:20→14:07)
[2018-06-28] MEDS: GLIMEPIRIDE 2 MG TABLET (FP) PO SCH (06:20)
[2018-06-28] MEDS: LEVOTHYROXINE NA 88 MCG TABLET (FP) PO SCH (06:20)
[2018-06-28] MEDS: metFORMIN HCL 500 MG TABLET (FP) PO SCH ×2 (06:20→16:45)
[2018-06-28] MEDS: oxyCODONE HCL 5 MG TABLET PO PRN (06:36)
[2018-06-28] MEDS: INSULIN SLIDING SCALE (NOVOLOG) 1 VIAL SQ SCH ×3 (07:07→16:46)
[2018-06-28 08:19] LABS: BASO % 0.9 % (0-2.0); HEMATOCRIT 27.5 % (32.4-45.2); HEMOGLOBIN 8.7 GM/dL (10.7-15.3); LYMPH % 10.3 % (8-40); MCH 26.7 pg (25.7-33.7); MCHC 31.7 g/dl (32.0-36.0); MEAN CELL VOLUME 84.4 fl (80-96); MEAN PLT VOLUME 7.5 fl (7.5-11.1); NEUT % 80.8 % (42.8-82.8); PLATELET COUNT 289 K/MM3 (134-434); RBC 3.26 M/mm3 (3.60-5.2); RDW 16.3 % (11.6-15.6); WHITE BLOOD COUNT 11.5 K/mm3 (4.0-10.0)
[2018-06-28 08:31] LABS: ANION GAP 12 MMOL/L (8-16); BLOOD UREA NITROGEN 14 mg/dL (7-18); CALCIUM 7.8 mg/dL (8.5-10.1); CHLORIDE 105 mmol/L (98-107); CO2 24 mmol/L (21-32); CREATININE 0.7 mg/dL (0.55-1.3); GLUCOSE,RANDOM 137 mg/dL (74-106); MAGNESIUM 1.7 mg/dL (1.8-2.4); PHOSPHOROUS 2.4 mg/dL (2.5-4.9); POTASSIUM 4.3 mmol/L (3.5-5.1); SODIUM 141 mmol/L (136-145)
[2018-06-28] MEDS: FERROUS SO4 325 MG TABLET (FP) PO SCH (08:44)
[2018-06-28] MEDS ORDERED: ACETAMINOPHEN 325 MG TABLET (FP) PO PRN (08:54)
--- NOTE | 2018-06-28 08:56 | PN ---
Progress Note (short form) - Note Progress Note: POD 3 Pt seen and examined. States her pain has improved slightly today. Has been oob to restroom without issue. Refused PT yesterday due to pain. Tolerating PO, + voiding. Denies cp/sob, n/v/d, calf pain or edema. Vital Signs Temp 98.8 F 06/28/18 06:00 Pulse 100 H 06/28/18 06:00 Resp 20 06/28/18 06:00 BP 107/58 L 06/28/18 06:00 Pulse Ox 96 06/27/18 21:00 Intake & Output 06/27/18 06/27/18 06/28/18 11:59 23:59 11:59 Intake Total 563 300 Balance 563 300 Intake: IV 83 Normal Saline - 1,000 ml 83 @ 100 mls/hr IV ASDIR JONATHAN Rx#:[id number] IVPB 100 Oral 380 300 Other: Voiding Method Toilet Toilet # Unmeasured Voids Void 3 1 1 Bowel Movement No CBC, BMP 06/28/18 06:50 06/28/18 06:50 Gen: awake, alert, in nad. Resp: cta b/l CV: rrr, s1s2 Lower back: dressing c/d/i, LACY site dressing with minimal serosanguinous drainage. Neuro: b/l le dorsiflexion/plantar flexion 5/5, hip flexion/extension 5/5, SILT B/L A/P: 67 y/o F w/ PMHx hld, NIDDM, hld, Lumbar stenosis Radiculopathy, now s/p L5-S1 laminectomies, microsurgical excision of HNP, interbody cage arthrodesis L5-S1 posterior lateral fusion with pedicle screws on 06/25. Exam stable. One lowe grade temp yesterday (99.7), tachy throughout day which pt relays is due to pain. Pai meds reviewed pt took AM dose of Oxycodone 10mg, next dose of analgesia was 8pm. Pt encouraged to ask for pain medications before pain becomes severe, discussed alternative (Acetaminophen) to narcotics or alternating with narcotic pain medications as needed at home (pt encouraged to keep track of times and doses of pain medications at home) May d/c to home today-pt agrees with plan discussed with attending Dr Alejandra
[2018-06-28] MEDS ORDERED: PT OWN MED DRAWER 7, Y5N ONE (09:21)
[2018-06-28] MEDS: amLODIPine BESYLATE 5 MG TABLET (FP) PO SCH (09:22)
[2018-06-28] MEDS: FOLIC ACID 1 MG TABLET (FP) PO SCH (09:22)
[2018-06-28] MEDS: LOSARTAN POTASSIUM 50 MG TABLET (FP) PO SCH (09:22)
[2018-06-28] MEDS: PANTOPRAZOLE 20 MG TABLET (FP) PO SCH (09:23)
--- NOTE | 2018-06-28 13:02 | DS ---
Physical Examination Vital Signs: Vital Signs Temperature 36.7 C 06/28/18 08:15 Pulse Rate 96 H 06/28/18 08:15 Respiratory Rate 20 06/28/18 08:15 Blood Pressure 103/60 06/28/18 08:15 O2 Sat by Pulse Oximetry (%) 96 06/27/18 21:00 Constitutional: Yes: Well Nourished, No Distress, Calm Neck: Yes: Other (in brace) Cardiovascular: Yes: Regular Rate and Rhythm. No: Gallop, Murmur, Rub Respiratory: Yes: Regular, CTA Bilaterally. No: Rales, Rhonchi, Wheezes Gastrointestinal: Yes: Normal Bowel Sounds, Soft. No: Distention, Tenderness Extremities: Yes: WNL Edema: No Labs: CBC, BMP 06/28/18 06:50 06/28/18 06:50 Discharge Summary Reason For Visit: L5S1 HNP AND INSTABILITY Current Active Problems HLD (hyperlipidemia) (Acute) Hypomagnesemia (Acute) Hospital Course: (1) HLD (hyperlipidemia) Code(s): E78.5 - HYPERLIPIDEMIA, UNSPECIFIED (2) Diabetes Code(s): E11.9 - TYPE 2 DIABETES MELLITUS WITHOUT COMPLICATIONS (3) HTN (hypertension) Code(s): I10 - ESSENTIAL (PRIMARY) HYPERTENSION (4) Hypothyroid Code(s): E03.9 - HYPOTHYROIDISM, UNSPECIFIED (5) Hypomagnesemia Code(s): E83.42 - HYPOMAGNESEMIA Ms Hancock is a very pleasant 67 year old female who was admitted after laminectomy. She was continued on her home regimen without change. Neurosurgery followed along and she was able to be changed from IV pain medications to oral oxycodone without difficulty. She is to continue to wear her brace per Neurosurgery recommendations. Her magnesium was replaced, on discharge this should normalize with diet. She is safe for discharge home. 31 minutes spent in preparation of this discharge Condition: Stable - Instructions Diet, Activity, Other Instructions: Post Operative Instructions Physical Activity Resume your normal everyday activity as tolerated. No heavy lifting or exercise until seen by your surgeon. You may walk unlimited amounts and climb stairs. You may resume driving the car when you feel safe and comfortable behind the wheel and you are no longer wearing your brace. Do not operate a vehicle while taking narcotic medication. Brace If you had back surgery, wear TLSO Brace whenever out of bed. May remove to sleep and shower. If you had neck surgery, wear surgical collar 23 hr/day. Remove to shower only. Wound Care Keep your incision clean, dry and covered at all times. Apply an occlusive dressing (Saran wrap or Tegaderm) when showering to avoid getting your incision wet. Do not submerge incision or apply ointments or creams. The cindy will be removed in the office in 10-14 days post-op. Diet There are no dietary restrictions. Eat healthy, high-fiber foods. Drink 6-8 glasses of liquid each day. This will assist in keeping your bowels regular. Pain Management You may take Tylenol or acetaminophen. Any pain prescription medication ordered should be taken as prescribed for moderate to severe pain. Call Dr Jones for any of the following: Severe pain not relieved by medication Fever of 101 or higher Excessive bleeding or drainage on dressing Inability to urinate Any chest pain or shortness of breath, seek Emergency Care. Call the office to confirm a post-operative appointment for 2-3 weeks post-op Silverio Goyal MD [facility] [address] [place] [address]. [place] [address] Referrals: Mariusz Little MD [Staff Physician] - Silverio Goyal MD, FAANS [Staff Physician] - Disposition: HOME - Home Medications Comprehensive Discharge Medication List: Ambulatory Orders Glimepiride 2 mg PO DAILY 02/11/14 Levothyroxine [Synthroid -] 88 mcg PO DAILY 02/11/14 Omeprazole [Prilosec (RX)] 20 mg PO DAILY PRN 02/11/14 metFORMIN HCL [Glucophage] 1,000 mg PO BID 02/11/14 Amlodipine Besylate [Norvasc -] 5 mg PO DAILY 06/08/17 Atorvastatin Ca [Lipitor] 20 mg PO DAILY 06/08/17 Cholecalciferol (Vitamin D3) [Vitamin D3 -] 2,000 unit PO DAILY 06/08/17 Losartan Potassium 50 mg PO DAILY 06/08/17 Vitamin B Complex [B Complex] 1 each PO DAILY 06/08/17 Ascorbic Acid [Vitamin C] 500 mg PO DAILY 10/15/17 Biotin 5,000 mcg PO DAILY 10/15/17 Cyanocobalamin [Vitamin B12 -] 1,000 mcg PO DAILY 10/15/17 L.acidoph,Paracasei, B.lactis [Probiotic] 1 each PO DAILY 10/15/17 Vitamin E 400 unit PO DAILY 10/15/17 Zolpidem Tartrate [Ambien] 5 mg PO HS 10/15/17 Acetaminophen [Tylenol .Regular Strength -] 650 mg PO Q6H PRN tablet 06/28/18 Docusate Sodium [Colace -] 100 mg PO TID #90 capsule 06/28/18 Ferrous Sulfate [Feosol] 325 mg PO DAILY@0800 #30 ud 06/28/18 Folic Acid - 1 mg PO DAILY #30 tablet 06/28/18 oxyCODONE HCL [Roxicodone -] 5 mg PO Q4H PRN #40 tablet MDD 60mg 06/28/18
[2018-06-28 15:12] VITALS: BP 123/78; PULSE 82; TEMP 98
== END 2018-06-28 17:53 | disposition home or self-care (01) | DRG 460 ==
LOC: JSAMEDAYSX 06:04 → EDSTATUS 11:00 → J8W 15:25
PROVIDERS: ADMIT Internal Medicine; ATTEND Internal Medicine
PROC: 0JX70ZZ Transfer Back Subcutaneous Tissue and Fascia, Open Approach (ICD-10-PCS; 2018-06-25)
PROC: 00NY0ZZ Release Lumbar Spinal Cord, Open Approach (ICD-10-PCS; 2018-06-25)
PROC: 0SB40ZZ Excision of Lumbosacral Disc, Open Approach (ICD-10-PCS; 2018-06-25)
PROC: 0SG30AJ Fusion of Lumbosacral Joint with Interbody Fusion Device, Posterior Approach, Anterior Column, Open Approach (ICD-10-PCS; principal; 2018-06-25 08:00)
DX: M51.17 Intervertebral disc disorders with radiculopathy, lumbosacral region (principal); M48.07 Spinal stenosis, lumbosacral region; E78.5 Hyperlipidemia, unspecified; E11.9 Type 2 diabetes mellitus without complications; I10 Essential (primary) hypertension; E03.9 Hypothyroidism, unspecified; Z79.84 Long term (current) use of oral hypoglycemic drugs; E66.9 Obesity, unspecified; Z68.32 Body mass index [BMI] 32.0-32.9, adult; R11.2 Nausea with vomiting, unspecified; E83.42 Hypomagnesemia
CPT/HCPCS: 36415; 72131-TC; 76000-TC-FY; 80048; 82962; 83735; 84100; 85025; 85027; 86850; 86900; 86901; 90688; 94010; 94760; 97116-GP; 97162-GP; G0008; J0131; J1644; J7030

== ENCOUNTER 2018-12-28 18:57 | Inpatient (IN) | payer OTHER ==
[2018-12-28 19:24] VITALS: BMI 30.4
[2018-12-28] MEDS ORDERED: GLUCAGON 1 MG KIT IVPUSH ONE ×3 (19:30→20:25)
[2018-12-28] MEDS ORDERED: GlUCAGON HUMAN RECOMBINANT 1 MG/VIAL ONE ×2 (19:45→20:32)
[2018-12-28] MEDS: NITROGLYCERIN SUBLINGUAL 1/150 0.4 MG TAB SL PRN ×3 (19:47→19:58)
[2018-12-28] MEDS ORDERED: ONDANSETRON 4 MG/2 ML VIAL ONE (19:52)
[2018-12-28] MEDS ORDERED: SODIUM CHLORIDE 0.9% 500 ML INFUS.BAG IV ONE (19:53)
[2018-12-28] MEDS ORDERED: ACETAMINOPHEN 1000 MG/100 ML VIAL (NON FORMULARY) IVPB ONE (19:54)
[2018-12-28] MEDS ORDERED: ONDANSETRON 4 MG/2 ML VIAL IVPB ONE (19:54)
[2018-12-28] MEDS ORDERED: ACETAMINOPHEN INJECTION 100 ML IVPB ONE (19:56)
--- NOTE | 2018-12-28 20:04 | PDOC ---
History of Present Illness - History of Present Illness Initial Comments: 12/28/18 20:12 68F with pmh diabetes, htn, hypothyroidism and cervical neck surgery presenting with episode of food bolus impaction an hour ago. She states that she has been getting food stuck in her esophagus frequently after the operation but never had to have surgery for it. Unable to swallow anything, comes right back out. Copious secretions. Denies sob, chest pain or dyspnea,. <Chilo Washington - Last Filed: 12/28/18 20:33> <Flower Arana - Last Filed: 12/29/18 22:03> - General Chief Complaint: Dysphagia Stated Complaint: TROUBLE SWALLOWING Time Seen by Provider: 12/28/18 19:30 Past History - Past Medical History Anemia: Yes CVA: Yes (L cerebellar infarct- 6 years ago) COPD: Yes (mild) Diabetes: Yes HTN: Yes Hypercholesterolemia: Yes Thyroid Disease: Yes - Surgical History Orthopedic Surgery: Yes (hand sx) - Suicide/Smoking/Psychosocial Hx Smoking History: Current every day smoker Have you smoked in the past 12 months: No If you are a former smoker, when did you quit?: 2005 Information on smoking cessation initiated: No Hx Alcohol Use: No Drug/Substance Use Hx: No Substance Use Type: None Hx Substance Use Treatment: No <Chilo Washington - Last Filed: 12/28/18 20:33> <Flower Arana - Last Filed: 12/29/18 22:03> - Past Medical History Allergies/Adverse Reactions: Allergies Allergy/AdvReac Type Severity Reaction Status Date / Time No Known Allergies Allergy Verified 12/28/18 22:18 Home Medications: Ambulatory Orders Amlodipine Besylate 10 mg PO DAILY 12/29/18 Aspirin [Ecotrin] 81 mg PO DAILY 12/29/18 Atorvastatin Ca [Lipitor] 20 mg PO HS 12/29/18 Glimepiride 2 mg PO DAILY 12/29/18 Levothyroxine [Synthroid -] 88 mcg PO DAILY 12/29/18 Losartan Potassium 50 mg PO DAILY 12/29/18 Metformin HCl [Glucophage] 1,000 mg PO BID 12/29/18 Omeprazole 20 mg PO PRN 12/29/18 Zolpidem Tartrate 10 mg PO HS 12/29/18 Review of Systems - Review of Systems Able to Perform ROS?: Yes Is the patient limited Uzbek proficient: No Constitutional: No: Symptoms Reported HEENTM: No: Symptoms Reported Respiratory: No: Symptoms reported Cardiac (ROS): No: Symptoms Reported ABD/GI: Yes: See HPI : No: Symptoms Reported Musculoskeletal: No: Symptoms Reported All Other Systems: Reviewed and Negative <Chilo Washington - Last Filed: 12/28/18 20:33> *Physical Exam - Vital Signs Last Vital Signs Temp Pulse Resp BP Pulse Ox 98.1 F 81 16 152/95 100 12/28/18 19:00 12/28/18 19:00 12/28/18 19:00 12/28/18 19:00 12/28/18 19:00 - Physical Exam General Appearance: Yes: Nourished, Appropriately Dressed, Moderate Distress HEENT: positive: EOMI, MARY, Normal ENT Inspection Respiratory/Chest: positive: Lungs Clear, Normal Breath Sounds. negative: Chest Tender, Respiratory Distress Cardiovascular: positive: Regular Rhythm, Regular Rate, S1, S2 Extremity: positive: Normal Capillary Refill, Normal Inspection, Normal Range of Motion Integumentary: positive: Normal Color, Dry, Warm Neurologic: positive: Fully Oriented, Alert, Normal Mood/Affect <Chilo Washington - Last Filed: 12/28/18 20:33> - Vital Signs Last Vital Signs Temp Pulse Resp BP Pulse Ox 98.8 F 98 H 18 106/48 L 93 L 12/29/18 16:29 12/29/18 17:52 12/29/18 20:00 12/29/18 17:52 12/29/18 20:00 <Flower Arana - Last Filed: 12/29/18 22:03> ED Treatment Course - LABORATORY CBC & Chemistry Diagram: 12/28/18 19:43 12/28/18 19:43 - Medications Given in the ED: ED Medications Discontinued Medications Generic Name Dose Route Start Last Admin Trade Name Freq PRN Reason Stop Dose Admin Glucagon 1 mg 12/28/18 19:30 12/28/18 19:50 Glucagon - IVPUSH 12/28/18 19:31 1 mg ONCE ONE Administration Glucagon 1 mg 12/28/18 19:54 12/28/18 19:55 Glucagon - IVPUSH 12/28/18 19:55 1 mg ONCE ONE Administration Ondansetron HCl 4 mg 12/28/18 19:54 12/28/18 20:00 Zofran Injection IVPB 12/28/18 19:55 4 mg ONCE ONE Administration Sodium Chloride 1,000 ml 12/28/18 19:53 12/28/18 19:40 Normal Saline - IV 12/28/18 19:54 1,000 ml ONCE ONE Administration <Ana Washingtony - Last Filed: 12/28/18 20:33> - LABORATORY CBC & Chemistry Diagram: 12/29/18 08:35 12/29/18 08:35 - ADDITIONAL ORDERS Additional order review: 12/28/18 19:43 RBC 4.25 MCV 83.1 MCHC 32.9 RDW 15.9 H MPV 7.3 L Neutrophils % 62.1 D Lymphocytes % 31.4 D Monocytes % 6.0 Eosinophils % 0.1 D Basophils % 0.4 - RADIOLOGY Radiology Studies Ordered: Category Date Time Status ABDOMEN FLAT & UPRIGHT [RAD] Stat Radiology 12/28/18 19:30 Completed CHEST PA & LAT [RAD] Stat Radiology 12/28/18 19:30 Completed - Medications Given in the ED: ED Medications Discontinued Medications Generic Name Dose Route Start Last Admin Trade Name Olegq PRN Reason Stop Dose Admin Acetaminophen 1,000 mg 12/28/18 19:54 12/28/18 20:20 Ofirmev Injection - IVPB 12/28/18 19:55 1,000 mg ONCE ONE Administration Acetaminophen 1,000 mg 12/29/18 03:33 12/29/18 03:44 Ofirmev Injection - IVPB 12/29/18 03:34 1,000 mg ONCE ONE Administration Acetaminophen 650 mg 12/29/18 11:04 12/29/18 11:28 Tylenol - PO 12/29/18 11:05 650 mg ONCE ONE Administration Albuterol/Ipratropium 1 amp 12/28/18 23:15 12/29/18 00:14 Duoneb - NEB 12/28/18 23:16 1 amp ONCE ONE Administration Albuterol/Ipratropium 3 amp 12/29/18 00:10 12/29/18 01:53 Duoneb - NEB 12/29/18 00:11 Not Given ONCE ONE Albuterol/Ipratropium 2 amp 12/29/18 00:10 12/29/18 01:00 Duoneb - NEB 12/29/18 00:11 2 amp ONCE ONE Administration Glucagon 1 mg 12/28/18 19:30 12/28/18 19:50 Glucagon - IVPUSH 12/28/18 19:31 1 mg ONCE ONE Administration Glucagon 1 mg 12/28/18 19:54 12/28/18 19:55 Glucagon - IVPUSH 12/28/18 19:55 1 mg ONCE ONE Administration Glucagon 1 mg 12/28/18 20:25 12/28/18 20:39 Glucagon - IVPUSH 12/28/18 20:26 1 mg ONCE ONE Administration Lactated Ringer's 1,000 mls @ 125 mls/hr 12/28/18 21:00 12/29/18 01:19 Lactated Ringers Solution IV 125 mls/hr ASDIR JONATHAN Administration Lactated Ringer's 1,000 ml in 1,000 mls @ 125 mls/hr 12/29/18 01:30 12/29/18 01:53 Lactated Ringers Solution IV 125 mls/hr ASDIR JONATHAN Administration Piperacillin Sod/Tazobactam 50 mls @ 100 mls/hr 12/29/18 04:15 12/29/18 05:00 Sod 3.375 gm/ Dextrose IVPB 12/29/18 04:44 100 mls/hr ONCE ONE Administration Protocol Insulin Aspart 1 vial 12/29/18 00:30 12/29/18 01:53 Novolog Vial Sliding Scale - SQ Not Given Q6HPO [facility] Protocol Lorazepam 2 mg 12/28/18 20:49 12/28/18 21:13 Ativan Injection - IVPUSH 12/28/18 20:50 2 mg ONCE ONE Administration Magnesium Sulfate 2 gm 12/29/18 09:22 12/29/18 10:23 Magnesium Sulfate IVPB 12/29/18 09:23 2 gm ONCE ONE Administration Magnesium Sulfate 1 gm 12/29/18 12:34 12/29/18 19:50 Magnesium Sulfate IVPB 12/29/18 12:35 Not Given ONCE ONE Methylprednisolone Sodium Succinate 125 mg 12/29/18 00:09 12/29/18 01:19 Solu-Medrol - IVPUSH 12/29/18 00:10 125 mg ONCE ONE Administration Nitroglycerin 0.4 mg 12/28/18 19:50 12/28/18 19:58 Nitrostat - SL 0.4 mg Q5M PRN Administration FOR CHEST PAIN Ondansetron HCl 4 mg 12/28/18 19:54 12/28/18 20:00 Zofran Injection IVPB 12/28/18 19:55 4 mg ONCE ONE Administration Pantoprazole Sodium 40 mg 12/29/18 10:00 12/29/18 10:27 Protonix Iv IVPUSH 40 mg DAILY JONATHAN Administration Sodium Chloride 1,000 ml 12/28/18 19:53 12/28/18 19:40 Normal Saline - IV 12/28/18 19:54 1,000 ml ONCE ONE Administration <Flower Arana - Last Filed: 12/29/18 22:03> Medical Decision Making - Medical Decision Making 12/28/18 20:17 This is a food bolus impaction. PAtient will need urgent endoscopy. Spoke to Dr. Rohan Simms who will perform emergent endoscopy in the OR In the meantime, giving the patient 1mg of glucagon and fluids. <Chilo Washington - Last Filed: 12/28/18 20:33> *DC/Admit/Observation/Transfer - Discharge Dispostion Decision to Admit order: Yes <Chilo Washington - Last Filed: 12/28/18 20:33> <Flower Arana - Last Filed: 12/29/18 22:03> Diagnosis at time of Disposition: Bolus impaction of digestive tract - Discharge Dispostion Disposition: HOME Condition at time of disposition: Good
[2018-12-28 20:12] LABS: BASO % 0.4 % (0-2.0); EOS % 0.1 % (0-4.5); HEMATOCRIT 35.4 % (32.4-45.2); HEMOGLOBIN 11.6 GM/dL (10.7-15.3); LYMPH % 31.4 % (8-40); MCH 27.4 pg (25.7-33.7); MCHC 32.9 g/dl (32.0-36.0); MEAN CELL VOLUME 83.1 fl (80-96); MEAN PLT VOLUME 7.3 fl (7.5-11.1); NEUT % 62.1 % (42.8-82.8); PLATELET COUNT 414 K/MM3 (134-434); RBC 4.25 M/mm3 (3.60-5.2); RDW 15.9 % (11.6-15.6); WHITE BLOOD COUNT 8.5 K/mm3 (4.0-10.0)
[2018-12-28] MEDS ORDERED: diazePAM CARPU-JECT 10 MG/2 ML DISP.SYRIN IVPUSH ONE (20:26)
[2018-12-28 20:36] LABS: ALBUMIN 4.3 g/dl (3.4-5.0); ALK PHOS 71 U/L (45-117); ANION GAP 6 MMOL/L (8-16); BILIRUBIN,TOTAL 0.1 mg/dL (0.2-1); BLOOD UREA NITROGEN 14 mg/dL (7-18); CALCIUM 8.9 mg/dL (8.5-10.1); CHLORIDE 105 mmol/L (98-107); CO2 30 mmol/L (21-32); CREATININE 0.8 mg/dL (0.55-1.3); GLUCOSE,RANDOM 132 mg/dL (74-106); POTASSIUM 4.1 mmol/L (3.5-5.1); SGOT/AST 19 U/L (15-37); SGPT/ALT 17 U/L (13-61); SODIUM 141 mmol/L (136-145); TOT PROT 7.5 g/dl (6.4-8.2)
[2018-12-28] MEDS ORDERED: LACTATED RINGERS SOLUTION 1,000 ML IV SCH (21:00)
[2018-12-28] MEDS ORDERED: LORazepam 2 MG/ML SDV VIAL ONE (21:09)
--- NOTE | 2018-12-28 21:50 | PDOC ---
Documentation entered by Radha Gustafson SCRIBE, acting as scribe for Flower Arana MD. Flower Arana MD: This documentation has been prepared by the scribe, Radha Gustafson SCRIBE, under my direction and personally reviewed by me in its entirety. I confirm that the documentation accurately reflects all work, treatment, procedures, and medical decision making performed by me. Attending Attestation - Resident Resident Name: Chilo Washington - ED Attending Attestation I have performed the following: I have examined & evaluated the patient, The case was reviewed & discussed with the resident, I agree w/resident's findings & plan - HPI HPI: 12/28/18 20:24 68 year old female with past medical history of hypertension and hypothyroidism s/p cervical neck surgery who presents to the ED with food bolus impaction after consuming steak about an hour prior to arrival. Patient states this has happened on prior occasions, never requiring surgical intervention. Reports producing secretions and an inability to hold down any food or liquids. Denies fevers or chills. Denies hematemesis. 12/28/18 21:11 Pt states that her dysphagias began after her spine/throat surgery from the anterior approach, but she admits that the dysphagia has gotten better with time. - Physicial Exam PE: 12/28/18 20:42 GENERAL: Awake, alert, and fully oriented, in no acute distress. Spitting up clear sputum, unable to swallow water. HEAD: No signs of trauma EYES: PERRLA, EOMI, sclera anicteric, conjunctiva clear ENT: No foreign body present in posterior oropharynx. No lesions. Auricles normal inspection, hearing grossly normal, nares patent. Moist mucosa NECK: Normal ROM, supple, no lymphadenopathy, JVD, or masses LUNGS: Breath sounds equal, clear to auscultation bilaterally. No wheezes, and no crackles HEART: Regular rate and rhythm, normal S1 and S2, no murmurs, rubs or gallops ABDOMEN: Soft, nontender, normoactive bowel sounds. No guarding, no rebound. No masses EXTREMITIES: Normal range of motion, no edema. No erythema or tenderness. DP/PT pulses 2+ and symmetric. Warm and well perfused. NEUROLOGICAL: Moves all extremities. Normal speech, normal gait SKIN: Warm, Dry, normal turgor, no rashes or lesions noted. - Medical Decision Making 12/28/18 19:[address] to Dr. Madrigal, GI caregivers non medical. Awaiting call back. 12/28/18 20:[address] Madrigal, case was discussed. 12/28/18 21:10 Anesthesiologist is at the bedside speaking to the patient. 12/29/18 22:05 despite glucagon IV 4mg and doses of SLNTG, pt's bolus is not passing.
--- NOTE | 2018-12-28 21:56 | CON.GI ---
Consult - History of Present Illness History of Present Illness: Mrs. Hancock is a 68 year old woman with a past medical history of hypertension , hypothyroidism, cervical neck surgery, previous history of dysphagia who presents to the ER with complaints of a sensation of food being stuck in her throat after eating steak and shrimp earlier today. She admits to vomiting up some of nohelia food debris but, still feels like there is something left in her throat. She was given glucagon in the ER. she denies abdominal pain , melena, brbr , weight loss. - History Source History Provided By: Patient Limitations to Obtaining History: No Limitations - Past Medical History Cardio/Vascular: Yes: HTN, Hyperlipdemia Endocrine: Yes: Diabetes Mellitus, Hypothyroidism - Alcohol/Substance Use Hx Alcohol Use: No - Smoking History Smoking history: Current every day smoker Have you smoked in the past 12 months: No If you are a former smoker, when did you quit?: 2005 - Social History ADL: Independent History of Recent Travel: No Home Medications - Allergies Allergies/Adverse Reactions: Allergies Allergy/AdvReac Type Severity Reaction Status Date / Time No Known Allergies Allergy Verified 06/25/18 06:44 - Home Medications Home Medications: Ambulatory Orders Glimepiride 2 mg PO DAILY 02/11/14 Levothyroxine [Synthroid -] 88 mcg PO DAILY 02/11/14 Omeprazole [Prilosec (RX)] 20 mg PO DAILY PRN 02/11/14 metFORMIN HCL [Glucophage] 1,000 mg PO BID 02/11/14 Amlodipine Besylate [Norvasc -] 5 mg PO DAILY 06/08/17 Atorvastatin Ca [Lipitor] 20 mg PO DAILY 06/08/17 Cholecalciferol (Vitamin D3) [Vitamin D3 -] 2,000 unit PO DAILY 06/08/17 Losartan Potassium 50 mg PO DAILY 06/08/17 Vitamin B Complex [B Complex] 1 each PO DAILY 06/08/17 Ascorbic Acid [Vitamin C] 500 mg PO DAILY 10/15/17 Biotin 5,000 mcg PO DAILY 10/15/17 Cyanocobalamin [Vitamin B12 -] 1,000 mcg PO DAILY 10/15/17 L.acidoph,Paracasei, B.lactis [Probiotic] 1 each PO DAILY 10/15/17 Vitamin E 400 unit PO DAILY 10/15/17 Zolpidem Tartrate [Ambien] 5 mg PO HS 10/15/17 Acetaminophen [Tylenol .Regular Strength -] 650 mg PO Q6H PRN tablet 06/28/18 Docusate Sodium [Colace -] 100 mg PO TID #90 capsule 06/28/18 Ferrous Sulfate [Feosol] 325 mg PO DAILY@0800 #30 ud 06/28/18 Folic Acid - 1 mg PO DAILY #30 tablet 06/28/18 oxyCODONE HCL [Roxicodone -] 5 mg PO Q4H PRN #40 tablet MDD 60mg 06/28/18 Family Disease History - Family Disease History Family History: Denies Review of Systems - Review of Systems Constitutional: denies: No Symptoms, Chills, Diaphoresis, Fever, Lethargy, Loss of Appetite, Malaise, Night Sweats, Unintentional Wgt. Loss, Weakness, Other Eyes: denies: No Symptoms, Blind Spots, Blurred Vision, Double Vision, Eye Pain , Floaters, Photophobia, Recent Change in Vision, Other HENT: reports: Other (see hpi) Neck: reports: No Symptoms Cardiovascular: reports: No Symptoms Respiratory: reports: No Symptoms Gastrointestinal: reports: No Symptoms Genitourinary: reports: No Symptoms Breasts: reports: No Symptoms Reported Musculoskeletal: reports: No Symptoms Integumentary: reports: No Symptoms Neurological: reports: No Symptoms Endocrine: reports: No Symptoms Hematology/Lymphatic: reports: No Symptoms Physical Exam-GI Vital Signs: Vital Signs Temperature 98.1 F 12/28/18 19:00 Pulse Rate 81 12/28/18 19:00 Respiratory Rate 16 12/28/18 19:00 Blood Pressure 152/95 12/28/18 19:00 O2 Sat by Pulse Oximetry (%) 100 12/28/18 19:00 Constitutional: Yes: Well Nourished, No Distress, Calm Eyes: Yes: WNL HENT: Yes: WNL Neck: Yes: WNL Cardiovascular: Yes: WNL Respiratory: Yes: WNL, Regular, CTA Bilaterally Gastrointestinal Inspection: Yes: WNL ...Auscultate: Yes: Normoactive Bowel Sounds Musculoskeletal: Yes: WNL Extremities: Yes: WNL Edema: No Labs: CBC, BMP 12/28/18 19:43 12/28/18 19:43 Problem List - Problems (1) Dysphagia Assessment/Plan: Impression: Dysphagia / food impaction Plan - npo / ivf's - plan for urgent egd tonight - risk explained in detail including but not limited to perforation , bleeding, sedation, missed lesion, infection. Code(s): R13.10 - DYSPHAGIA, UNSPECIFIED Assessment/Plan see above plan
[2018-12-28] MEDS ORDERED: fentaNYL CITRATE 250 MCG/5 ML VIAL ONE (21:58)
[2018-12-28] MEDS ORDERED: MIDAZOLAM HCL 2 MG/2 ML SINGLE DOSE VIAL ONE (21:59)
[2018-12-28] MEDS ORDERED: ALBUTEROL SO4 0.083% IH SOL 2.5 MG/3 ML VIAL.NEB. NEB ONE (22:48)
[2018-12-28] MEDS ORDERED: ALBUTEROL SO4 2.5/IPRATROPIUM 0.5 INH SOL 3 ML VIAL.NEB. NEB PRN (23:08)
[2018-12-28] MEDS ORDERED: ALBUTEROL SO4 2.5/IPRATROPIUM 0.5 INH SOL 3 ML VIAL.NEB. NEB ONE (23:15)
--- NOTE | 2018-12-29 00:08 | HP ---
CHIEF COMPLAINT: food impaction, hypoxia HISTORY OF PRESENT ILLNESS: 68 year old female with a past medical history of DM, hypertension, and hypothyroidism presented to the ED s/p food bolus impaction after having difficulty swallowing. Patient states that she was eating shrimp when the food impaction occurred. In the ED, patient was seen by Dr. Madrigal, who took patient for EGD and foreign body impaction removal endoscopically. After the procedure, patient desaturated down to the mid-80s and was placed on 4L nasal cannula in the PACU. Upon examining patient, she reports she is not short of breath, has no chest pain, nausea, vomiting, diarrhea, belly pain, fevers or chills. States that she has been having frequent difficulty swallowing since her operation. Recent Travel: denies PAST MEDICAL HISTORY: DM, HTN, Hypothyroid PAST SURGICAL HISTORY: cervical neck surgery 10/2017 Social History: Smoking: former Alcohol: denies Drugs: denies Allergies No Known Allergies Allergy (Verified 12/28/18 22:18) HOME MEDICATIONS: Home Medications Medication Instructions Recorded Glimepiride 2 mg PO DAILY 02/11/14 Levothyroxine [Synthroid -] 88 mcg PO DAILY 02/11/14 Omeprazole [Prilosec (RX)] 20 mg PO DAILY PRN 02/11/14 metFORMIN HCL [Glucophage] 1,000 mg PO BID 02/11/14 Amlodipine Besylate [Norvasc -] 5 mg PO DAILY 06/08/17 Atorvastatin Ca [Lipitor] 20 mg PO DAILY 06/08/17 Cholecalciferol (Vitamin D3) 2,000 unit PO DAILY 06/08/17 [Vitamin D3 -] Losartan Potassium 50 mg PO DAILY 06/08/17 Vitamin B Complex [B Complex] 1 each PO DAILY 06/08/17 Ascorbic Acid [Vitamin C] 500 mg PO DAILY 10/15/17 Biotin 5,000 mcg PO DAILY 10/15/17 Cyanocobalamin [Vitamin B12 -] 1,000 mcg PO DAILY 10/15/17 L.acidoph,Paracasei, B.lactis 1 each PO DAILY 10/15/17 [Probiotic] Vitamin E 400 unit PO DAILY 10/15/17 Zolpidem Tartrate [Ambien] 5 mg PO HS 10/15/17 Acetaminophen [Tylenol .Regular 650 mg PO Q6H PRN tablet 06/28/18 Strength -] Docusate Sodium [Colace -] 100 mg PO TID #90 capsule 06/28/18 Ferrous Sulfate [Feosol] 325 mg PO DAILY@0800 #30 ud 06/28/18 Folic Acid - 1 mg PO DAILY #30 tablet 06/28/18 oxyCODONE HCL [Roxicodone -] 5 mg PO Q4H PRN #40 tablet MDD 60mg 06/28/18 REVIEW OF SYSTEMS CONSTITUTIONAL: Absent: fever, chills, diaphoresis, generalized weakness, malaise, loss of appetite, weight change HEENT: Absent: rhinorrhea, nasal congestion, throat pain, throat swelling, difficulty swallowing, mouth swelling, ear pain, eye pain, visual changes CARDIOVASCULAR: Absent: chest pain, syncope, palpitations, irregular heart rate, lightheadedness , peripheral edema RESPIRATORY: Absent: cough, shortness of breath, dyspnea with exertion, orthopnea, wheezing, stridor, hemoptysis GASTROINTESTINAL: Absent: abdominal pain, abdominal distension, nausea, vomiting, diarrhea, constipation, melena, hematochezia GENITOURINARY: Absent: dysuria, frequency, urgency, hesitancy, hematuria, flank pain, genital pain MUSCULOSKELETAL: Absent: myalgia, arthralgia, joint swelling, back pain, neck pain SKIN: Absent: rash, itching, pallor HEMATOLOGIC/IMMUNOLOGIC: Absent: easy bleeding, easy bruising, lymphadenopathy, frequent infections ENDOCRINE: Absent: unexplained weight gain, unexplained weight loss, heat intolerance, cold intolerance NEUROLOGIC: Absent: headache, focal weakness or paresthesias, dizziness, unsteady gait, seizure, mental status changes, bladder or bowel incontinence PSYCHIATRIC: Absent: anxiety, depression, suicidal or homicidal ideation, hallucinations. PHYSICAL EXAMINATION Vital Signs - 24 hr 12/28/18 12/28/18 19:00 22:44 Temperature 98.1 F 98 F Pulse Rate 81 110 H Respiratory 16 22 H Rate Blood Pressure 152/95 114/69 O2 Sat by Pulse 100 87 L Oximetry (%) GENERAL: A&Ox3, no acute distress EYES: PERRLA, EOMI ENT: Moist mucus membranes NECK: No JVD LUNGS: CTA, no wheezes HEART: RRR, no murmurs ABDOMEN: Soft, nontender, BS present MUSCULOSKELETAL: No CVA Tenderness EXTREMITIES: 2+ pulses, no edema. NEUROLOGICAL: Cranial nerves II-XII intact. Laboratory Results - last 24 hr 12/28/18 12/28/18 19:43 19:43 WBC 8.5 RBC 4.25 Hgb 11.6 Hct 35.4 D MCV 83.1 MCH 27.4 MCHC 32.9 RDW 15.9 H Plt Count 414 D MPV 7.3 L Absolute Neuts (auto) 5.3 Neutrophils % 62.1 D Lymphocytes % 31.4 D Monocytes % 6.0 Eosinophils % 0.1 D Basophils % 0.4 Nucleated RBC % 0 Sodium 141 Potassium 4.1 Chloride 105 Carbon Dioxide 30 Anion Gap 6 L BUN 14 Creatinine 0.8 Creat Clearance w eGFR 70.91 Random Glucose 132 H Calcium 8.9 Total Bilirubin 0.1 L AST 19 ALT 17 Alkaline Phosphatase 71 Total Protein 7.5 Albumin 4.3 ASSESSMENT/PLAN: 68 year old female with a past medical history of DM, hypertension, and hypothyroidism presented to the ED s/p food bolus impaction after having difficulty swallowing and s/p EGD with hypoxia #Hypoxia s/p EGD: likely 2/2 COPD exacerbation vs delayed recovery from anesthesia -duonebs -O2 by nasal cannula -steroids w/ solumedrol -continuous pulse oximetry -CXR does not look different to prior -ICU monitoring overnight #Dysphagia: chronic 1 year duration -NPO for now, reevaluate swallowing in morning -GI consulted #Diabetes -hold diabetic meds -BGM Q6h -ISS Q6h #Hypertension -continue amlodipine 5 -continue losartan 50 #Hyperthyroidism -continue synthroid, meds need to be reconciled #FEN -no standing fluids -lytes normal -NPO right after EGD, re-evaluate in AM for swallowing ability #Prophylaxis -lovenox #Disposition -admit ICU for close O2 monitoring, anticipate 1-2 day stay Visit type - Emergency Visit Emergency Visit: Yes Care time: The patient presented to the Emergency Department on the above date and was hospitalized for further evaluation of their emergent condition. - New Patient This patient is new to me today: Yes Date on this admission: 12/29/18 - Critical Care Critical Care patient: Yes Total Critical Care Time (in minutes): 35 Critical Care Statement: The care of this patient involved high complexity decision making to prevent further life threatening deterioration of the patient 's condition and/or to evaluate & treat vital organ system(s) failure or risk of failure.
[2018-12-29] MEDS ORDERED: methylPREDNISolone NA SUCC 125 MG/2 ML VIAL IVPUSH ONE (00:09)
[2018-12-29] MEDS ORDERED: ALBUTEROL SO4 2.5/IPRATROPIUM 0.5 INH SOL 3 ML VIAL.NEB. NEB ONE ×2 (00:10)
[2018-12-29] MEDS ORDERED: INSULIN SLIDING SCALE (NOVOLOG) 1 VIAL SQ SCH (00:30)
--- NOTE | 2018-12-29 00:46 | CONSULT ---
Consultation: Requesting Provider: Dr. Madrigal Consult Request: We have been asked to medically evaluate this patient for post- anesthesia desaturation. History of Present Illness: 68 y/o female presented to [facility] ED with shrimp food bolus. H/o of multiple similar prior episodes but none requiring emergent intervention. Urgent endoscopy performed by Dr. Madrigal. Food bolus was removed successfully. Pt was placed under general anesthesia using RSI technique. Sevoflurane was used for inhaled anesthetic. Pt was found to desaturate to the 80s in the recovery room. Pt reports feeling sick with cough for the past week. Multiple grandchildren were sick recently. Traveled to the [facility] 4 months ago. PCP: Dr. Little Nonfarm Animal Caretaker: Dr. Burrell Social Hx: - Former heavy smoker, quit 2004 Medical Hx: COPD - Diabetes - Htn - Hypothyroidism Surgical Hx: - L5-S1 laminectomies, microsurgical excision of HNP, interbody cage arthrodesis L5-S1 posterior lateral fusion with pedicle screws Review of Systems: In addition to that documented in the HPI above, the additional ROS was obtained : Constitutional: Denies fevers or chills Head: Denies vision changes ENMT: Denies sore throat CV: Denies chest pain Resp: Denies SOB GI: Per HPI All other 12 point review of systems negative PHYSICAL EXAMINATION Vital Signs - 24 hr 12/28/18 12/28/18 19:00 22:44 Temperature 98.1 F 98 F Pulse Rate 81 110 H Respiratory 16 22 H Rate Blood Pressure 152/95 114/69 O2 Sat by Pulse 100 87 L Oximetry (%) Lines: - PIV Drains: - None Supplemental Oxygen: 3 LPM via nasal cannula Physical Exam: Constitutional: Well-developed, well-nourished adult female in no acute distress or obvious discomfort. Found semi-fowlers on hospital bed. Alert and oriented x4. Answered all questions appropriately and completely. Speech was non -labored, non-pressured. Head: Normocephalic. No obvious external signs of trauma. Throat: Oral cavity and pharynx normal. No inflammation, swelling, exudate, or lesions. Neck: Supple, trachea is midline. Cardiovascular / Chest: Regular rate and regular rhythm. No murmur, rubs, clicks, or gallops. Peripheral pulses: radial pulses full. Respiratory: Mildly tachypneic, but able to speak in multi-word answers without pausing. Equal chest rise and fall. Trace diffuse wheezing in posterior lower lobes bilaterally. No stridor, rales, or rhonchi. No accessory muscle usage. Gastrointestinal: abdomen is soft, non-tender, non-distended. Neuro: Alert and oriented. Moving all four extremities spontaneously. Skin: Warm, dry, and intact. Psych: Affect: appropriate. Mood: normal. Laboratory Results - last 24 hr 12/28/18 12/28/18 19:43 19:43 WBC 8.5 RBC 4.25 Hgb 11.6 Hct 35.4 D MCV 83.1 MCH 27.4 MCHC 32.9 RDW 15.9 H Plt Count 414 D MPV 7.3 L Absolute Neuts (auto) 5.3 Neutrophils % 62.1 D Lymphocytes % 31.4 D Monocytes % 6.0 Eosinophils % 0.1 D Basophils % 0.4 Nucleated RBC % 0 Sodium 141 Potassium 4.1 Chloride 105 Carbon Dioxide 30 Anion Gap 6 L BUN 14 Creatinine 0.8 Creat Clearance w eGFR 70.91 Random Glucose 132 H Calcium 8.9 Total Bilirubin 0.1 L AST 19 ALT 17 Alkaline Phosphatase 71 Total Protein 7.5 Albumin 4.3 Active Medications Generic Name Dose Route Start Last Admin Trade Name Freq PRN Reason Stop Dose Admin Albuterol/Ipratropium 1 amp 12/28/18 23:08 Duoneb - NEB Q6H PRN WHEEZING Amlodipine Besylate 5 mg 12/29/18 10:00 Norvasc - PO DAILY [facility] Atorvastatin Calcium 20 mg 12/29/18 22:00 Lipitor - PO HS [facility] Chlorhexidine Gluconate 1 applic 12/29/18 22:00 Hibiclens For Decolonization - TP HS [facility] Docusate Sodium 100 mg 12/29/18 06:00 Colace - PO TID JONATHAN Enoxaparin Sodium 40 mg 12/29/18 10:00 Lovenox - SQ DAILY JONATHAN Ferrous Sulfate 325 mg 12/29/18 08:00 Feosol - PO DAILY@0800 [facility] Lactated Ringer's 1,000 mls @ 125 mls/hr 12/28/18 21:00 Lactated Ringers Solution IV ASDIR [facility] Insulin Aspart 1 vial 12/29/18 00:30 Novolog Vial Sliding Scale - SQ Q6HPO [facility] Protocol Levothyroxine Sodium 88 mcg 12/29/18 07:00 Synthroid - PO DAILY@0700 [facility] Losartan Potassium 50 mg 12/29/18 10:00 Cozaar - PO DAILY [facility] Mupirocin 1 applic 12/29/18 10:00 Bactroban Ointment (For Decolonization) - NS 01/03/19 09:59 BID JONATHAN ASSESSMENT/PLAN: 68 year old female with h/o heavy tobacco usage (quit 2004), COPD, diabetes, HTN , hypothyroidism, L brain chronic ischemic infarct, s/p L5-S1 laminectomies. S/ p urgent endoscopy for food bolus. Admitted to ICU for post-anesthesia hypoxia. Neuro (& Psych): - A/O x4. No sedating medications. - L brain chronic ischemic infarct. Stable. No intervention required at this time. Endocrine: - Hypothyroidism. C/w home Synthroid. - Diabetes. Placed on Insulin sliding scale. - Pre-op electrolytes within normal limits. Will trend in the morning. Cardiovascular: - Borderline tachycardia. Suspect secondary to anesthesia versus mild volume loss. Ordered LR maintenance fluids to replenish. - HTN. C/w home Amlodipine and Losartan as BP allows. - HLD. C/w home Atorvastatin. Pulm / Resp: - Hypoxic post Sevoflurane anesthesia. Suspect secondary to COPD exacerbation in setting of inhaled anesthetic versus chronic aspiration pneumonitis given multiple episodes of dysphasia. CXR unremarkable for infiltrates or effusions. No significant change from pre-op film per resident wet read. Radiology report pending. Will administer DuoNebs and Solu-Medrol. Continue oxygen therapy and continuous pulse oximetry monitoring. Gastrointestinal: - Food bolus removed. Will make NPO given possible aspiration. - C/w home Colace for constipation. Hematologic: - H/H stable pre-operatively. Infectious Disease: - Afebrile, normotensive, without leukocytosis. Low suspicion for active infection. FEN: - IVF LR @ 125mL/hr - C/w home Ferrous Sulfate Prophylaxis: - DVT: Lovenox - GI: Protonix per GI recommendation Code Status / Family Conversation: - Discussed with pt. Would like to be made full code status. Designated daughter Eliza Roberts as healthcare proxy. Form completed and placed in chart. Dispo: Pt to remain in ICU for respiratory monitoring. Thank you for this consultative opportunity. Case discussed with ICU attending, . Panchito Quintana MD, PGY1 ICU Consult Service Visit type - Emergency Visit Emergency Visit: No - New Patient This patient is new to me today: Yes Date on this admission: 12/29/18 - Critical Care Critical Care patient: Yes Total Critical Care Time (in minutes): 40 Critical Care Statement: The care of this patient involved high complexity decision making to prevent further life threatening deterioration of the patient 's condition and/or to evaluate & treat vital organ system(s) failure or risk of failure.
[2018-12-29] MEDS ORDERED: LACTATED RINGERS SOLUTION 1,000 ML/1,000 ML INFUS.BAG IV SCH (01:30)
[2018-12-29] MEDS ORDERED: ACETAMINOPHEN 1000 MG/100 ML VIAL (NON FORMULARY) IVPB ONE (03:33)
--- NOTE | 2018-12-29 03:44 | PN ---
Teaching Attending Note Name of Resident: Gopal Bach ATTENDING PHYSICIAN STATEMENT I saw and evaluated the patient. I reviewed the resident's note and discussed the case with the resident. I agree with the resident's findings and plan as documented. SUBJECTIVE: OBJECTIVE: ASSESSMENT AND PLAN: Hypoxia s/p EGD: likely 2/2 COPD exacerbation vs delayed recovery from anesthesia -duonebs -O2 by nasal cannula -steroids w/ solumedrol -continuous pulse oximetry -CXR does not look different to prior -ICU monitoring overnight Tachycardia: patient is febrile possible aspiration pneumonitis Dysphagia: chronic 1 year duration -NPO for now, reevaluate swallowing in morning -GI consulted Diabetes -hold diabetic meds -BGM Q6h -ISS Q6h Hypertension -continue amlodipine 5 -continue losartan 50 Hyperthyroidism -continue levothyroxine, meds need to be reconciled Problem List - Problems (1) Bolus impaction of digestive tract Code(s): [id number] - (2) Anemia Code(s): D64.9 - ANEMIA, UNSPECIFIED Qualifiers: Anemia type: other cause Other causes of anemia: acute posthemorrhagic Qualified Code(s): D62 - Acute posthemorrhagic anemia (3) Diabetes Code(s): E11.9 - TYPE 2 DIABETES MELLITUS WITHOUT COMPLICATIONS (4) HTN (hypertension) Code(s): I10 - ESSENTIAL (PRIMARY) HYPERTENSION (5) Hypothyroid Code(s): E03.9 - HYPOTHYROIDISM, UNSPECIFIED
[2018-12-29] MEDS ORDERED: PIPERACILLIN/TAZOB 3.375 GM 3.375 GM in DEXTROSE 5%-WATER - 50 ML IVPB ONE (04:15)
[2018-12-29] MEDS ORDERED: PIPERACILLIN/TAZOBACTAM 3.375 GM VIAL IVPB ONE (04:39)
[2018-12-29] MEDS ORDERED: DEXTROSE 5%-WATER - 50 ML IVPB ONE (04:39)
[2018-12-29] MEDS: DOCUSATE SODIUM 100 MG CAPSULE (FP) PO SCH ×3 (05:03→21:33)
[2018-12-29] MEDS: LEVOTHYROXINE NA 88 MCG TABLET (FP) PO SCH (06:11)
[2018-12-29] MEDS: INSULIN SLIDING SCALE (NOVOLOG) 1 VIAL SQ SCH ×4 (06:11→21:37)
--- NOTE | 2018-12-29 07:13 | PN.GI ---
GI Progress Note Subjective: fever overnight and hypoxia after extubated last night ; today she states she is feeling better ; complains of cough ; no other complaints - Objective Vital Signs: Vital Signs Temperature 100.3 F H 12/29/18 06:00 Pulse Rate 99 H 12/29/18 06:00 Respiratory Rate 18 12/29/18 06:00 Blood Pressure 106/57 L 12/29/18 06:00 O2 Sat by Pulse Oximetry (%) 92 L 12/29/18 06:00 Constitutional: Well Nourished, No Distress, Calm Eyes: Yes: WNL HENT: Yes: WNL Neck: Yes: WNL Cardiovascular: Yes: WNL Respiratory: Yes: WNL, Regular, Other (coarse at the bases) Gastrointestinal Inspection: Yes: WNL ...Auscultate: Yes: Normoactive Bowel Sounds Extremities: Yes: WNL Edema: No Labs: CBC, BMP 12/28/18 19:43 12/28/18 19:43 Assessment/Plan see above plan Problem List - Problems (1) Dysphagia Assessment/Plan: - cxr reviewed - bibasilar infiltrates f/u cultures ; c/w abx as per ID - c/w PPI therapy - soft diet - repeat egd in 4 weeks with mid - esophagus biopsies - will f/u Code(s): R13.10 - DYSPHAGIA, UNSPECIFIED (2) Fever Code(s): R50.9 - FEVER, UNSPECIFIED
[2018-12-29 08:46] LABS: HEMATOCRIT 31.5 % (32.4-45.2); HEMOGLOBIN 10.4 GM/dL (10.7-15.3); MCH 27.1 pg (25.7-33.7); MCHC 32.9 g/dl (32.0-36.0); MEAN CELL VOLUME 82.4 fl (80-96); PLATELET COUNT 324 K/MM3 (134-434); RBC 3.82 M/mm3 (3.60-5.2); RDW 15.7 % (11.6-15.6); WHITE BLOOD COUNT 15.5 K/mm3 (4.0-10.0)
[2018-12-29 09:19] LABS: ALBUMIN 3.2 g/dl (3.4-5.0); ALK PHOS 51 U/L (45-117); ANION GAP 7 MMOL/L (8-16); BILIRUBIN,TOTAL 0.3 mg/dL (0.2-1); BLOOD UREA NITROGEN 11 mg/dL (7-18); CALCIUM 8.2 mg/dL (8.5-10.1); CHLORIDE 108 mmol/L (98-107); CO2 25 mmol/L (21-32); CREATININE 0.8 mg/dL (0.55-1.3); GLUCOSE,RANDOM 219 mg/dL (74-106); MAGNESIUM 1.5 mg/dL (1.8-2.4); PHOSPHOROUS 3.9 mg/dL (2.5-4.9); SGOT/AST 13 U/L (15-37); SGPT/ALT 15 U/L (13-61); SODIUM 140 mmol/L (136-145); TOT PROT 6.1 g/dl (6.4-8.2)
[2018-12-29] MEDS ORDERED: MAGNESIUM SULF 50% (8.12 MEQ/2 ML-1 GM VIAL) IVPB ONE ×2 (09:22→12:34)
--- NOTE | 2018-12-29 09:40 | CON.ID ---
Consult Consult Specialty:: infectious disease Referred by:: hospitalist Reason for Consultation:: fever to 103 and cough - History of Present Illness Chief Complaint: admitted with food impaction History of Present Illness: 68 yo female with DM, history of cervical neck surgery about 18 months ago, developed a food impaction- sensation of food stuck in her throat and came to ED seen by GI had endoscopy , shrimp food impaction removed post endoscopy she became hypoxic and had fever to 103 +cough now (new) gives history of cough, uri symptoms about two weeks ago from granddaughters-5 yo twins- had recovered -this cough is new no vomiting no diarrhea [facility] no recent antiibotics - History Source History Provided By: Patient Limitations to Obtaining History: No Limitations - Past Medical History Cardio/Vascular: Yes: HTN, Hyperlipdemia Endocrine: Yes: Diabetes Mellitus, Hypothyroidism - Past Surgical History Past Surgical History: Yes: Laminectomy Additional Surgical History: cervical laminectomy 10/21, lumbar laminectomy 06/20 - Alcohol/Substance Use Hx Alcohol Use: No - Smoking History Smoking history: Smoker current status UNK Have you smoked in the past 12 months: No If you are a former smoker, when did you quit?: 2006 - Social History ADL: Independent Occupation: retired Place of : [employer] History of Recent Travel: No Home Medications - Allergies Allergies/Adverse Reactions: Allergies Allergy/AdvReac Type Severity Reaction Status Date / Time No Known Allergies Allergy Verified 12/28/18 22:18 - Home Medications Home Medications: Ambulatory Orders Amlodipine Besylate 10 mg PO DAILY 12/29/18 Aspirin [Ecotrin] 81 mg PO DAILY 12/29/18 Atorvastatin Ca [Lipitor] 20 mg PO HS 12/29/18 Glimepiride 2 mg PO DAILY 12/29/18 Levothyroxine [Synthroid -] 88 mcg PO DAILY 12/29/18 Losartan Potassium 50 mg PO DAILY 12/29/18 Metformin HCl [Glucophage] 1,000 mg PO BID 12/29/18 Omeprazole 20 mg PO PRN 12/29/18 Zolpidem Tartrate 10 mg PO HS 12/29/18 Family Disease History - Family Disease History Family History: Unremarkable Review of Systems - Review of Systems Constitutional: reports: Fever Eyes: reports: No Symptoms HENT: reports: Difficult Swallowing Neck: reports: No Symptoms Cardiovascular: reports: No Symptoms. denies: Chest Pain Respiratory: reports: Cough. denies: SOB Gastrointestinal: reports: No Symptoms. denies: Abdominal Pain Genitourinary: reports: No Symptoms Physical Exam Vital Signs: Vital Signs Temperature 99.4 F 12/29/18 08:00 Pulse Rate 90 12/29/18 08:00 Respiratory Rate 18 12/29/18 08:00 Blood Pressure 95/60 12/29/18 08:00 O2 Sat by Pulse Oximetry (%) 93 L 12/29/18 08:57 Constitutional: Yes: Well Nourished, No Distress, Calm Eyes: Yes: Conjunctiva Clear HENT: Yes: Atraumatic, Normocephalic. No: Thrush Neck: Yes: Supple Cardiovascular: Yes: Regular Rate and Rhythm Respiratory: Yes: Regular, Rhonchi Gastrointestinal: Yes: Normal Bowel Sounds, Soft ...Rectal Exam: Yes: Deferred Extremities: Yes: WNL Edema: No Psychiatric: Yes: Alert, Oriented Labs: CBC, BMP 12/29/18 08:35 12/29/18 08:35 Imaging - Results Chest X-ray: Report Reviewed, Image Reviewed Problem List - Problems (1) Aspiration pneumonia Code(s): J69.0 - PNEUMONITIS DUE TO INHALATION OF FOOD AND VOMIT (2) Esophageal obstruction due to food impaction Code(s): K22.2 - ESOPHAGEAL OBSTRUCTION; T18.128A - FOOD IN ESOPHAGUS CAUSING OTHER INJURY, INITIAL ENCOUNTER Assessment/Plan cannot r/o aspiration pneumonia encourage incentive spirometry iv unasyn after cultures doubt viral infection as she states she was recovered prior to this food impactin history of diabetes
[2018-12-29] MEDS ORDERED: PANTOPRAZOLE SODIUM 40 MG VIAL IVPUSH SCH (10:00)
--- NOTE | 2018-12-29 10:04 | PN ---
Progress Note (short form) - Note Progress Note: Anesthesia postop note POD#1 S/P EGD, removal of impacted food under GA. Pat has history of current URI, cough. Yesterday, 3 hours of vomiting and unable to swallow saliva preop. SpO2 in lower 90s preop. 100% intra op and during post op desaturation episodes in 80s. No problem during intubation, RSI. Improved on Duoneb treatment and IS. continued to require 3l O2 NC. CXR, possibl small amount of fluid. Received Steroids and antibitics in ICU. ID consult. Doing much better today, still though on 3 l O2 NC. Will be transferred to Floor. follow up by ID and delivery motorcycle driver. VSS. No complications related to anesthesia. Continued care as per primary team.
[2018-12-29] MEDS: LACTATED RINGERS SOLUTION 1,000 ML/1,000 ML INFUS.BAG IV SCH (10:22)
[2018-12-29] MEDS: FERROUS SO4 325 MG TABLET (FP) PO SCH (10:27)
[2018-12-29] MEDS: ENOXAPARIN NA (PORCINE) 40 MG/0.4 ML DISP.SYRIN SQ SCH (10:28)
[2018-12-29] MEDS: MUPIROCIN 2% TOPICAL OINTMENT FOR DECOLONIZATION NS SCH ×2 (10:28→21:34)
--- NOTE | 2018-12-29 10:28 | PN ---
Teaching Attending Note Name of Resident: Cheyenne Greene ATTENDING PHYSICIAN STATEMENT I saw and evaluated the patient. I reviewed the resident's note and discussed the case with the resident. I agree with the resident's findings and plan as documented. SUBJECTIVE: Patient seen and examined in the ICU. Awake and alert. NAD on 3 L NC O2. Reports feeling much better overall. Some dry cough. No CP. CXR: poor inspiratory effort / increased vascular markings with some fluid in the right fissure Intake & Output 12/26/18 12/27/18 12/28/18 12/29/18 23:59 23:59 23:59 23:59 Intake Total 300 1075 Output Total 300 Balance 300 775 Weight 156 lb Last Vital Signs Temp Pulse Resp BP Pulse Ox 99.4 F 90 18 95/60 93 L 12/29/18 08:00 12/29/18 08:00 12/29/18 08:00 12/29/18 08:00 12/29/18 08:57 Active Medications Albuterol/Ipratropium (Duoneb -) 1 amp NEB Q6H PRN PRN Reason: WHEEZING Amlodipine Besylate (Norvasc -) 5 mg PO DAILY [facility] Atorvastatin Calcium (Lipitor -) 20 mg PO HS [facility] Chlorhexidine Gluconate (Hibiclens For Decolonization -) 1 applic TP HS [facility] Docusate Sodium (Colace -) 100 mg PO TID [facility] Last Admin: 12/29/18 05:03 Dose: Not Given Enoxaparin Sodium (Lovenox -) 40 mg SQ DAILY [facility] Ferrous Sulfate (Feosol -) 325 mg PO DAILY@0800 [facility] Ampicillin Sodium/Sulbactam (Sodium 1.5 gm/ Sodium Chloride) 100 mls @ 200 mls/ hr IVPB Q6H-IV [facility] Lactated Ringer's (Lactated Ringers Solution) 1,000 ml in 1,000 mls @ 50 mls/ hr IV ASDIR [facility] Insulin Aspart (Novolog Vial Sliding Scale -) 1 vial SQ ACHS [facility]; Protocol Last Admin: 12/29/18 06:11 Dose: Not Given Levothyroxine Sodium (Synthroid -) 88 mcg PO DAILY@0700 [facility] Last Admin: 12/29/18 06:11 Dose: Not Given Losartan Potassium (Cozaar -) 50 mg PO DAILY [facility] Mupirocin (Bactroban Ointment (For Decolonization) -) 1 applic NS BID [facility] Stop: 01/03/19 09:59 Pantoprazole Sodium (Protonix Iv) 40 mg IVPUSH DAILY [facility] Physical Exam: Constitutional: Awake and alert, NAD on NC O2 Head: Normocephalic. No obvious external signs of trauma. Throat: Oral cavity and pharynx normal. No inflammation, swelling, exudate, or lesions. Neck: Supple, trachea is midline. Cardiovascular: Regular rate and regular rhythm. No murmur, rubs, clicks, or gallops. Peripheral pulses: radial pulses full. Respiratory: few scattered basilar rhonchi, no wheeze Gastrointestinal: abdomen is soft, non-tender, non-distended. Neuro: Alert and oriented. Moving all four extremities spontaneously. Skin: Warm, dry, and intact. Psych: Affect: appropriate. Mood: normal. Laboratory Results - last 24 hr 12/28/18 12/28/18 12/29/18 19:43 19:43 01:51 WBC 8.5 RBC 4.25 Hgb 11.6 Hct 35.4 D MCV 83.1 MCH 27.4 MCHC 32.9 RDW 15.9 H Plt Count 414 D MPV 7.3 L Absolute Neuts (auto) 5.3 Neutrophils % 62.1 D Lymphocytes % 31.4 D Monocytes % 6.0 Eosinophils % 0.1 D Basophils % 0.4 Nucleated RBC % 0 Sodium 141 Potassium 4.1 Chloride 105 Carbon Dioxide 30 Anion Gap 6 L BUN 14 Creatinine 0.8 Creat Clearance w eGFR 70.91 POC Glucometer 113 Random Glucose 132 H Calcium 8.9 Phosphorus Magnesium Total Bilirubin 0.1 L AST 19 ALT 17 Alkaline Phosphatase 71 Total Protein 7.5 Albumin 4.3 12/29/18 12/29/18 12/29/18 06:01 08:35 08:35 WBC 15.5 H RBC 3.82 Hgb 10.4 L Hct 31.5 L MCV 82.4 MCH 27.1 MCHC 32.9 RDW 15.7 H Plt Count 324 D MPV 7.0 L Absolute Neuts (auto) Neutrophils % Lymphocytes % Monocytes % Eosinophils % Basophils % Nucleated RBC % Sodium 140 Potassium 4.0 Chloride 108 H Carbon Dioxide 25 Anion Gap 7 L BUN 11 Creatinine 0.8 Creat Clearance w eGFR 70.91 POC Glucometer 220 Random Glucose 219 H Calcium 8.2 L Phosphorus 3.9 Magnesium 1.5 L Total Bilirubin 0.3 AST 13 L ALT 15 Alkaline Phosphatase 51 Total Protein 6.1 L Albumin 3.2 L ASSESSMENT/PLAN: Resolving post procedural/anesthesia hypoxemia: (?) transient aspiration pneumonitis (?) component of (-) Pressure Pulmonary edema S/P urgent endoscopy for impacted food bolus Probable COPD but does not appear to be in acute exacerbation Diabetes HTN Hypothyroidism Left brain chronic ischemic infarct History of L5-S1 laminectomies. Decrease IVF Trial of clear liquids OOB to chair O2 to maintain saturation BD TX PRN Noted ID has been called: do not suspect PNA No clear indication for further systemic steroids Glycemic control Can be monitored on the medical floor Dr Knapp
[2018-12-29] MEDS: amLODIPine BESYLATE 5 MG TABLET (FP) PO SCH (10:29)
[2018-12-29] MEDS: LOSARTAN POTASSIUM 50 MG TABLET (FP) PO SCH (10:29)
[2018-12-29] MEDS ORDERED: ACETAMINOPHEN 325 MG TABLET (FP) PO ONE (11:04)
[2018-12-29] MEDS ORDERED: PT OWN MED DRAWER 7, Y5N ONE ×2 (11:43→19:42)
[2018-12-29] MEDS: AMPICILLIN NA/SULBACTAM NA 1.5 GM in SODIUM CHLORIDE 100 ML IVPB SCH ×3 (11:46→20:40)
--- NOTE | 2018-12-29 12:01 | PN ---
Physical Exam: SUBJECTIVE: Patient seen this morning and without any complaints. tolerating nasal cannula, no other acute events overnight. OBJECTIVE: Vital Signs Temperature 99 F 12/29/18 10:00 Pulse Rate 92 H 12/29/18 10:00 Respiratory Rate 18 12/29/18 10:00 Blood Pressure 104/70 12/29/18 10:00 O2 Sat by Pulse Oximetry (%) 92 L 12/29/18 10:00 GENERAL: The patient is awake, alert, and fully oriented, in no acute distress. HEAD: Normal with no signs of trauma. EYES: PERRL, extraocular movements intact NECK: no swelling, no stridor LUNGS: Breath sounds equal, clear to auscultation bilaterally, no wheezes, no crackles, no accessory muscle use. HEART: Regular rate and rhythm, S1, S2 without murmur, rub or gallop. ABDOMEN: Soft, nontender, nondistended, normoactive bowel sounds, no guarding, no rebound, no hepatosplenomegaly, no masses. SKIN: Warm, dry, normal turgor, no rashes or lesions noted CBCD WBC 15.5 K/mm3 (4.0-10.0) H 12/29/18 08:35 RBC 3.82 M/mm3 (3.60-5.2) 12/29/18 08:35 Hgb 10.4 GM/dL (10.7-15.3) L 12/29/18 08:35 Hct 31.5 % (32.4-45.2) L 12/29/18 08:35 MCV 82.4 fl (80-96) 12/29/18 08:35 MCHC 32.9 g/dl (32.0-36.0) 12/29/18 08:35 RDW 15.7 % (11.6-15.6) H 12/29/18 08:35 Plt Count 324 K/MM3 (134-434) D 12/29/18 08:35 MPV 7.0 fl (7.5-11.1) L 12/29/18 08:35 CMP Sodium 140 mmol/L (136-145) 12/29/18 08:35 Potassium 4.0 mmol/L (3.5-5.1) 12/29/18 08:35 Chloride 108 mmol/L (98-107) H 12/29/18 08:35 Carbon Dioxide 25 mmol/L (21-32) 12/29/18 08:35 Anion Gap 7 MMOL/L (8-16) L 12/29/18 08:35 BUN 11 mg/dL (7-18) 12/29/18 08:35 Creatinine 0.8 mg/dL (0.55-1.3) 12/29/18 08:35 Creat Clearance w eGFR 70.91 (>60) 12/29/18 08:35 Calcium 8.2 mg/dL (8.5-10.1) L 12/29/18 08:35 Total Bilirubin 0.3 mg/dL (0.2-1) 12/29/18 08:35 AST 13 U/L (15-37) L 12/29/18 08:35 ALT 15 U/L (13-61) 12/29/18 08:35 Alkaline Phosphatase 51 U/L (45-117) 12/29/18 08:35 Total Protein 6.1 g/dl (6.4-8.2) L 12/29/18 08:35 Albumin 3.2 g/dl (3.4-5.0) L 12/29/18 08:35 Active Medications Albuterol/Ipratropium (Duoneb -) 1 amp NEB Q6H PRN PRN Reason: WHEEZING Amlodipine Besylate (Norvasc -) 5 mg PO DAILY [facility] Last Admin: 12/29/18 10:29 Dose: Not Given Atorvastatin Calcium (Lipitor -) 20 mg PO HS [facility] Chlorhexidine Gluconate (Hibiclens For Decolonization -) 1 applic TP [facility] Docusate Sodium (Colace -) 100 mg PO TID [facility] Last Admin: 12/29/18 05:03 Dose: Not Given Enoxaparin Sodium (Lovenox -) 40 mg SQ DAILY [facility] Last Admin: 12/29/18 10:28 Dose: 40 mg Ferrous Sulfate (Feosol -) 325 mg PO DAILY@0800 [facility] Last Admin: 12/29/18 10:27 Dose: 325 mg Ampicillin Sodium/Sulbactam (Sodium 1.5 gm/ Sodium Chloride) 100 mls @ 200 mls/ hr IVPB Q6H-IV [facility] Lactated Ringer's (Lactated Ringers Solution) 1,000 ml in 1,000 mls @ 50 mls/ hr IV ASDIR [facility] Last Admin: 12/29/18 10:22 Dose: 50 mls/hr Insulin Aspart (Novolog Vial Sliding Scale -) 1 vial SQ ACHS [facility]; Protocol Last Admin: 12/29/18 11:28 Dose: 8 units Levothyroxine Sodium (Synthroid -) 88 mcg PO DAILY@0700 [facility] Last Admin: 12/29/18 06:11 Dose: Not Given Losartan Potassium (Cozaar -) 50 mg PO DAILY [facility] Last Admin: 12/29/18 10:29 Dose: Not Given Mupirocin (Bactroban Ointment (For Decolonization) -) 1 applic NS BID [facility] Stop: 01/03/19 09:59 Last Admin: 12/29/18 10:28 Dose: 1 inch Pantoprazole Sodium (Protonix Iv) 40 mg IVPUSH DAILY [facility] Last Admin: 12/29/18 10:27 Dose: 40 mg ASSESSMENT/PLAN: Patient is a 85 y/o female with a history of DM, HTN, hypothyroidism, COPD, L brain chronic ischemic infarct, and anterior and posterior cervical surgery who presents for food impaction. Neuro - A & O x3 - neurovascularly intact Cardio - hx HTN, continue amlodipine 5 mg daily, losartan 50 daily - continue atorvastatin 20 mg hs Pulm - stable - patient toleration nasal cannula - keep O2 > 90% GI - food impaction cleared with emergent endoscopy - continue diet as tolerated - protonix po daily Heme - DVT ppx: lovenox 40 daily - hx anemia, continue ferrous sulfate Endo - hx hypothyroidism, continue Levothyroxine 88 mcg FEN - soft diabteic diet Dispo: can be monitored on med/surg Visit type - Emergency Visit Emergency Visit: No - New Patient This patient is new to me today: Yes Date on this admission: 12/29/18 - Critical Care Critical Care patient: Yes Total Critical Care Time (in minutes): 35 Critical Care Statement: The care of this patient involved high complexity decision making to prevent further life threatening deterioration of the patient 's condition and/or to evaluate & treat vital organ system(s) failure or risk of failure.
--- NOTE | 2018-12-29 12:18 | PN ---
Physical Exam: SUBJECTIVE: Patient seen and examined,breathing improved. Reports cough with clear sputum. Recovering from recent URI. OBJECTIVE: Vital Signs Period Temp Pulse Resp BP Sys/David Pulse Ox Last 24 Hr 37 F-103 F 81-132 16-24 95-152/51-95 80-100 GENERAL: lying in bed in no acute distress Chest: basilar rhonchi, no wheezing ABdomen;Soft, obese, NT Extremities: no edema CVS:S1S2 regular Psych: co-operative Laboratory Results - last 24 hr 12/28/18 12/28/18 12/29/18 19:43 19:43 01:51 WBC 8.5 RBC 4.25 Hgb 11.6 Hct 35.4 D MCV 83.1 MCH 27.4 MCHC 32.9 RDW 15.9 H Plt Count 414 D MPV 7.3 L Absolute Neuts (auto) 5.3 Neutrophils % 62.1 D Lymphocytes % 31.4 D Monocytes % 6.0 Eosinophils % 0.1 D Basophils % 0.4 Nucleated RBC % 0 Sodium 141 Potassium 4.1 Chloride 105 Carbon Dioxide 30 Anion Gap 6 L BUN 14 Creatinine 0.8 Creat Clearance w eGFR 70.91 POC Glucometer 113 Random Glucose 132 H Calcium 8.9 Phosphorus Magnesium Total Bilirubin 0.1 L AST 19 ALT 17 Alkaline Phosphatase 71 Total Protein 7.5 Albumin 4.3 12/29/18 12/29/18 12/29/18 06:01 08:35 08:35 WBC 15.5 H RBC 3.82 Hgb 10.4 L Hct 31.5 L MCV 82.4 MCH 27.1 MCHC 32.9 RDW 15.7 H Plt Count 324 D MPV 7.0 L Absolute Neuts (auto) Neutrophils % Lymphocytes % Monocytes % Eosinophils % Basophils % Nucleated RBC % Sodium 140 Potassium 4.0 Chloride 108 H Carbon Dioxide 25 Anion Gap 7 L BUN 11 Creatinine 0.8 Creat Clearance w eGFR 70.91 POC Glucometer 220 Random Glucose 219 H Calcium 8.2 L Phosphorus 3.9 Magnesium 1.5 L Total Bilirubin 0.3 AST 13 L ALT 15 Alkaline Phosphatase 51 Total Protein 6.1 L Albumin 3.2 L 12/29/18 11:19 WBC RBC Hgb Hct MCV MCH MCHC RDW Plt Count MPV Absolute Neuts (auto) Neutrophils % Lymphocytes % Monocytes % Eosinophils % Basophils % Nucleated RBC % Sodium Potassium Chloride Carbon Dioxide Anion Gap BUN Creatinine Creat Clearance w eGFR POC Glucometer 304 Random Glucose Calcium Phosphorus Magnesium Total Bilirubin AST ALT Alkaline Phosphatase Total Protein Albumin Active Medications Generic Name Dose Route Start Last Admin Trade Name Frenavin PRN Reason Stop Dose Admin Albuterol/Ipratropium 1 amp 12/28/18 23:08 Duoneb - NEB Q6H PRN WHEEZING Amlodipine Besylate 5 mg 12/29/18 10:00 12/29/18 10:29 Norvasc - PO Not Given DAILY [facility] Atorvastatin Calcium 20 mg 12/29/18 22:00 Lipitor - PO HS [facility] Chlorhexidine Gluconate 1 applic 12/29/18 22:00 Hibiclens For Decolonization - TP HS [facility] Docusate Sodium 100 mg 12/29/18 06:00 12/29/18 05:03 Colace - PO Not Given TID [facility] Enoxaparin Sodium 40 mg 12/29/18 10:00 12/29/18 10:28 Lovenox - SQ 40 mg DAILY [facility] Administration Ferrous Sulfate 325 mg 12/29/18 08:00 12/29/18 10:27 Feosol - PO 325 mg DAILY@0800 [facility] Administration Ampicillin Sodium/Sulbactam 100 mls @ 200 mls/hr 12/29/18 09:45 12/29/18 11: 46 Sodium 1.5 gm/ Sodium Chloride IVPB 200 mls/hr Q6H-IV [facility] Administration Lactated Ringer's 1,000 ml in 1,000 mls @ 50 mls/hr 12/29/18 09:41 12/29/18 10:22 Lactated Ringers Solution IV 50 mls/hr ASDIR [facility] Administration Insulin Aspart 1 vial 12/29/18 07:00 12/29/18 11:28 Novolog Vial Sliding Scale - SQ 8 units ACHS [facility] Administration Protocol Levothyroxine Sodium 88 mcg 12/29/18 07:00 12/29/18 06:11 Synthroid - PO Not Given DAILY@0700 [facility] Losartan Potassium 50 mg 12/29/18 10:00 12/29/18 10:29 Cozaar - PO Not Given DAILY [facility] Mupirocin 1 applic 12/29/18 10:00 12/29/18 10:28 Bactroban Ointment (For Decolonization) - NS 01/03/19 09:59 1 inch BID [facility] Administration Pantoprazole Sodium 40 mg 12/30/18 10:00 Protonix - PO DAILY [facility] Home Medications Medication Instructions Recorded Amlodipine Besylate 10 mg PO DAILY 12/29/18 Aspirin [Ecotrin] 81 mg PO DAILY 12/29/18 Atorvastatin Ca [Lipitor] 20 mg PO HS 12/29/18 Glimepiride 2 mg PO DAILY 12/29/18 Levothyroxine [Synthroid -] 88 mcg PO DAILY 12/29/18 Losartan Potassium 50 mg PO DAILY 12/29/18 Metformin HCl [Glucophage] 1,000 mg PO BID 12/29/18 Omeprazole 20 mg PO PRN 12/29/18 Zolpidem Tartrate 10 mg PO HS 12/29/18 Microbiology 12/29/18 11:00 Urine For Antigen Detection Legionella Antigen - Final 12/29/18 11:00 Urine For Antigen Detection Streptococcus pneumoniae Antigen (M - Final ASSESSMENT/PLAN: 68 yof with PMHx of HTN, NIDDM, hypothyroidism, C-spine surgery 10/2017, former smoker, recovering from recent URI, comes with impacted food s/p emergent EGD/ removal, post op course complicated by hypoxic and fever -Post procedure hpyoxia, Aspiration pneumonitis vs pressure pulmonary edema -Fevers, ?aspiration +/- Pneumonia, unlikely from recent URI -Food impaction s/p emergent EGD/Removal -HTN -NIDDM -Hypothyroidism -C-spine surgery 10/2017 -Former smoker, ?undiagnosed COPD Plan: Oxygenation improved. Decreased IVF. PO clears with aspiration precautions, advance as tolerated. S/p steroids post op, monitor off further doses for now. ID input noted. Follow up cultures. Emperic unasyn day 1. Hold losartan/amlodipine given soft BP Hold oral DM meds. ISS, diabetic diet when able Continue ASA/Statin/levothyroxine DVTPPX lovenox Dispo agree with transfer out of ICU Plan discussed with patient and nursing. Total critical care time spent 36 min. Visit type - Emergency Visit Emergency Visit: Yes ED Registration Date: 12/28/18 Care time: The patient presented to the Emergency Department on the above date and was hospitalized for further evaluation of their emergent condition. - New Patient This patient is new to me today: Yes Date on this admission: 12/29/18 - Critical Care Critical Care patient: Yes Total Critical Care Time (in minutes): 36 Critical Care Statement: The care of this patient involved high complexity decision making to prevent further life threatening deterioration of the patient 's condition and/or to evaluate & treat vital organ system(s) failure or risk of failure.
--- NOTE | 2018-12-29 15:26 | EKG ---
Test Reason : Blood Pressure : / mmHG Vent. Rate : 089 BPM Atrial Rate : 089 BPM P-R Int : 158 ms QRS Dur : 066 ms QT Int : 372 ms P-R-T Axes : 066 -04 065 degrees QTc Int : 452 ms NORMAL SINUS RHYTHM NORMAL ECG WHEN COMPARED WITH ECG OF 15-OCT-2017 11:36, NO SIGNIFICANT CHANGE WAS FOUND Confirmed by AMANDA HAN MD ([id number]) on 12/29/2018 3:26:21 PM Referred By: Confirmed By:AMANDA HAN MD
[2018-12-29] MEDS ORDERED: ACETAMINOPHEN 325 MG TABLET (FP) ONE (17:23)
[2018-12-29] MEDS ORDERED: ACETAMINOPHEN 325 MG TABLET (FP) PO PRN (18:23)
[2018-12-29] MEDS ORDERED: ATORVASTATIN CA 20 MG TABLET (FP) PO SCH (22:00)
[2018-12-29] MEDS ORDERED: CHLORHEXIDINE GLUCONATE 4% CLEANSER FOR DECOLONIZATION TP SCH (22:00)
[2018-12-29] MEDS ORDERED: ZOLPIDEM TARTRATE 5 MG TABLET PO ONE (23:30)
[2018-12-30] MEDS: AMPICILLIN NA/SULBACTAM NA 1.5 GM in SODIUM CHLORIDE 100 ML IVPB SCH ×4 (02:04→21:02)
[2018-12-30] MEDS: LEVOTHYROXINE NA 88 MCG TABLET (FP) PO SCH (06:09)
[2018-12-30] MEDS: DOCUSATE SODIUM 100 MG CAPSULE (FP) PO SCH ×3 (06:09→21:03)
[2018-12-30] MEDS: INSULIN SLIDING SCALE (NOVOLOG) 1 VIAL SQ SCH ×4 (06:12→21:03)
[2018-12-30 06:32] LABS: HEMATOCRIT 28.3 % (32.4-45.2); HEMOGLOBIN 9.3 GM/dL (10.7-15.3); MCHC 32.7 g/dl (32.0-36.0); MEAN CELL VOLUME 82.6 fl (80-96); MEAN PLT VOLUME 7.2 fl (7.5-11.1); PLATELET COUNT 295 K/MM3 (134-434); RBC 3.42 M/mm3 (3.60-5.2); RDW 15.6 % (11.6-15.6); WHITE BLOOD COUNT 14.3 K/mm3 (4.0-10.0)
[2018-12-30 06:56] LABS: ANION GAP 5 MMOL/L (8-16); BLOOD UREA NITROGEN 9 mg/dL (7-18); CHLORIDE 108 mmol/L (98-107); CO2 30 mmol/L (21-32); CREATININE 0.6 mg/dL (0.55-1.3); GLUCOSE,RANDOM 124 mg/dL (74-106); MAGNESIUM 1.9 mg/dL (1.8-2.4); PHOSPHOROUS 3.4 mg/dL (2.5-4.9); SODIUM 143 mmol/L (136-145)
--- NOTE | 2018-12-30 08:53 | PN ---
Physical Exam: SUBJECTIVE: Patient seen and examined, reports chest/epigastric "muscle pain" only when coughs. Breathing improved, no chest pain otherwise. tolerating clears well. OBJECTIVE: Vital Signs Period Temp Pulse Resp BP Sys/David Pulse Ox Last 24 Hr 98 F-99 F 84-98 13-19 104-135/48-96 90-93 Intake & Output 12/27/18 12/28/18 12/29/18 12/30/18 23:59 23:59 23:59 23:59 Intake Total 300 3265 730 Output Total 800 Balance 300 2465 730 Weight 156 lb GENERAL: sitting in bed, paroxysms of cough, holding her epigastrium, reports pain with coughing CVS:S1S2 regular Chest: decreased air entry, bibasilar rales Abdomen:Soft, obese, NT, positive bowel sounds Extremities: no edema neck: soft, supple, no JVD Psych: co-operative Laboratory Results - last 24 hr 12/29/18 12/29/18 12/29/18 08:35 08:35 11:19 WBC 15.5 H RBC 3.82 Hgb 10.4 L Hct 31.5 L MCV 82.4 MCH 27.1 MCHC 32.9 RDW 15.7 H Plt Count 324 D MPV 7.0 L Sodium 140 Potassium 4.0 Chloride 108 H Carbon Dioxide 25 Anion Gap 7 L BUN 11 Creatinine 0.8 Creat Clearance w eGFR 70.91 POC Glucometer 304 Random Glucose 219 H Calcium 8.2 L Phosphorus 3.9 Magnesium 1.5 L Total Bilirubin 0.3 AST 13 L ALT 15 Alkaline Phosphatase 51 Total Protein 6.1 L Albumin 3.2 L Influenza A (Rapid) Influenza B (Rapid) 12/29/18 12/29/18 12/29/18 16:43 21:36 22:00 WBC RBC Hgb Hct MCV MCH MCHC RDW Plt Count MPV Sodium Potassium Chloride Carbon Dioxide Anion Gap BUN Creatinine Creat Clearance w eGFR POC Glucometer 185 114 Random Glucose Calcium Phosphorus Magnesium Total Bilirubin AST ALT Alkaline Phosphatase Total Protein Albumin Influenza A (Rapid) Negative Influenza B (Rapid) Negative 12/30/18 12/30/18 12/30/18 05:30 05:30 06:03 WBC 14.3 H RBC 3.42 L Hgb 9.3 L Hct 28.3 L MCV 82.6 MCH 27.0 MCHC 32.7 RDW 15.6 Plt Count 295 MPV 7.2 L Sodium 143 Potassium 4.0 Chloride 108 H Carbon Dioxide 30 Anion Gap 5 L BUN 9 Creatinine 0.6 Creat Clearance w eGFR 98.83 POC Glucometer 123 Random Glucose 124 H Calcium 8.0 L Phosphorus 3.4 Magnesium 1.9 Total Bilirubin AST ALT Alkaline Phosphatase Total Protein Albumin Influenza A (Rapid) Influenza B (Rapid) Active Medications Generic Name Dose Route Start Last Admin Trade Name Freq PRN Reason Stop Dose Admin Acetaminophen 650 mg 12/29/18 18:23 12/29/18 18:37 Tylenol - PO 650 mg Q6H PRN Administration PAIN OR FEVER Albuterol/Ipratropium 1 amp 12/28/18 23:08 Duoneb - NEB Q6H PRN WHEEZING Amlodipine Besylate 5 mg 12/29/18 10:00 12/29/18 10:29 Norvasc - PO Not Given DAILY [facility] Atorvastatin Calcium 20 mg 12/29/18 22:00 12/29/18 21:33 Lipitor - PO 20 mg HS [facility] Administration Chlorhexidine Gluconate 1 applic 12/29/18 22:00 12/29/18 21:34 Hibiclens For Decolonization - TP 1 applic HS [facility] Administration Docusate Sodium 100 mg 12/29/18 06:00 12/30/18 06:09 Colace - PO 100 mg TID [facility] Administration Enoxaparin Sodium 40 mg 12/29/18 10:00 12/29/18 10:28 Lovenox - SQ 40 mg DAILY [facility] Administration Ferrous Sulfate 325 mg 12/29/18 08:00 12/29/18 10:27 Feosol - PO 325 mg DAILY@0800 [facility] Administration Guaifenesin 5 ml 12/30/18 08:48 Diabetic Tussin Dm - PO Q6H PRN COUGH Ampicillin Sodium/Sulbactam 100 mls @ 200 mls/hr 12/29/18 09:45 12/30/18 02: 04 Sodium 1.5 gm/ Sodium Chloride IVPB 200 mls/hr Q6H-IV [facility] Administration Lactated Ringer's 1,000 ml in 1,000 mls @ 50 mls/hr 12/29/18 09:41 12/29/18 10:22 Lactated Ringers Solution IV 50 mls/hr ASDIR [facility] Administration Insulin Aspart 1 vial 12/29/18 07:00 12/30/18 06:12 Novolog Vial Sliding Scale - SQ Not Given ACHS [facility] Protocol Levothyroxine Sodium 88 mcg 12/29/18 07:00 12/30/18 06:09 Synthroid - PO 88 mcg DAILY@0700 [facility] Administration Losartan Potassium 50 mg 12/29/18 10:00 12/29/18 10:29 Cozaar - PO Not Given DAILY [facility] Methylprednisolone Sodium Succinate 40 mg 12/30/18 10:00 Solu-Medrol - IVPUSH DAILY [facility] Mupirocin 1 applic 12/29/18 10:00 12/29/18 21:34 Bactroban Ointment (For Decolonization) - NS 01/03/19 09:[address] [facility] Administration Pantoprazole Sodium 40 mg 12/30/18 10:00 Protonix - PO DAILY [facility] Home Medications Medication Instructions Recorded Amlodipine Besylate 10 mg PO DAILY 12/29/18 Aspirin [Ecotrin] 81 mg PO DAILY 12/29/18 Atorvastatin Ca [Lipitor] 20 mg PO HS 12/29/18 Glimepiride 2 mg PO DAILY 12/29/18 Levothyroxine [Synthroid -] 88 mcg PO DAILY 12/29/18 Losartan Potassium 50 mg PO DAILY 12/29/18 Metformin HCl [Glucophage] 1,000 mg PO BID 12/29/18 Omeprazole 20 mg PO PRN 12/29/18 Zolpidem Tartrate 10 mg PO HS 12/29/18 CXR images and results reviewed Telemetry reviewed, no arrhythmia, hypoxic episodes ASSESSMENT/PLAN: 68 yof with PMHx of HTN, NIDDM, hypothyroidism, C-spine surgery 10/2017, former smoker, recovering from recent URI, comes with impacted food s/p emergent EGD/ removal, post op course complicated by hypoxic and fever -Post procedure hpyoxia, Aspiration pneumonitis vs pressure pulmonary edema -Fevers, ?aspiration +/- Pneumonia, unlikely from recent URI -Food impaction s/p emergent EGD/Removal -HTN -NIDDM -Hypothyroidism -C-spine surgery 10/2017 -Former smoker, suspect underlying COPD Plan: Slow improvement, still hypoxic, suspect underlying COPD. respiratory effort and cough paroxysms noted on exam Short course of steroids, start 40 mg IV daily. D/c IVF Tolerating diet. Advance to soft diet. GI input appreciated. No further fevers, Unasyn day 2, follow up with ID, cultures neg so far. Continue losartan. Reume amlodipine based on BP readings. Hold oral DM meds. ISS, diabetic diet Continue ASA/Statin/levothyroxine DVTPPX lovenox Dispo agree with transfer out of ICU Check ambulatory oxygen D/c in 24-48 hours +/- home oxygen if continues to improve. Plan discussed with patient and nursing. Total critical care time spent 36 min. Visit type - Emergency Visit Emergency Visit: Yes ED Registration Date: 12/28/18 Care time: The patient presented to the Emergency Department on the above date and was hospitalized for further evaluation of their emergent condition. - New Patient This patient is new to me today: No - Critical Care Critical Care patient: Yes Total Critical Care Time (in minutes): 36 Critical Care Statement: The care of this patient involved high complexity decision making to prevent further life threatening deterioration of the patient 's condition and/or to evaluate & treat vital organ system(s) failure or risk of failure.
[2018-12-30] MEDS: guaiFENesin/D-M SUGAR-FREE/ACLHOL-FREE 118 ML BOTTLE PO PRN ×2 (09:54→17:35)
[2018-12-30] MEDS ORDERED: methylPREDNISolone NA SUCC 40 MG/1 ML VIAL IVPUSH SCH (10:00)
[2018-12-30] MEDS ORDERED: PANTOPRAZOLE 40 MG TABLET (FP) PO SCH (10:00)
[2018-12-30] MEDS ORDERED: PT OWN MED DRAWER 7, Y5N ONE ×3 (10:07→22:47)
[2018-12-30] MEDS: ENOXAPARIN NA (PORCINE) 40 MG/0.4 ML DISP.SYRIN SQ SCH (10:09)
[2018-12-30] MEDS: amLODIPine BESYLATE 5 MG TABLET (FP) PO SCH (10:09)
[2018-12-30] MEDS: LOSARTAN POTASSIUM 50 MG TABLET (FP) PO SCH (10:09)
[2018-12-30] MEDS: LACTATED RINGERS SOLUTION 1,000 ML/1,000 ML INFUS.BAG IV SCH (10:10)
[2018-12-30] MEDS: MUPIROCIN 2% TOPICAL OINTMENT FOR DECOLONIZATION NS SCH (10:10)
[2018-12-30] MEDS: FERROUS SO4 325 MG TABLET (FP) PO SCH (10:17)
--- NOTE | 2018-12-30 10:53 | PN ---
Progress Note (short form) - Note Progress Note: feels improved hungry still on a liquid diet continues to cough and bring up "slimy stuff" Vital Signs Period Temp Pulse Resp BP Sys/David Pulse Ox Last 24 Hr 98 F-98.9 F 84-111 13- 106-135/48-96 90-93 cor-rrr llungs bilateral wheeze, crackles left base abd soft,nt ext no edema CBC, BMP 12/30/18 05:30 12/30/18 05:30 Microbiology 12/29/18 11:00 Sputum - Expectorated Gram Stain - Final 12/29/18 11:00 Sputum - Expectorated Sputum Culture - Preliminary NORMAL RESPIRATORY MIKE 12/29/18 11:00 Urine For Antigen Detection Legionella Antigen - Final 12/29/18 11:00 Urine For Antigen Detection Streptococcus pneumoniae Antigen (M - Final cxray no acute infiltrates Current Medications Acetaminophen (Tylenol -) 650 mg PO Q6H PRN PRN Reason: PAIN OR FEVER Last Admin: 12/29/18 18:37 Dose: 650 mg Albuterol/Ipratropium (Duoneb -) 1 amp NEB Q6H PRN PRN Reason: WHEEZING Amlodipine Besylate (Norvasc -) 5 mg PO DAILY [facility] Last Admin: 12/30/18 10:09 Dose: 5 mg Atorvastatin Calcium (Lipitor -) 20 mg PO HS [facility] Last Admin: 12/29/18 21:33 Dose: 20 mg Chlorhexidine Gluconate (Hibiclens For Decolonization -) 1 applic TP HS [facility] Last Admin: 12/29/18 21:34 Dose: 1 applic Docusate Sodium (Colace -) 100 mg PO TID [facility] Last Admin: 12/30/18 06:09 Dose: 100 mg Enoxaparin Sodium (Lovenox -) 40 mg SQ DAILY [facility] Last Admin: 12/30/18 10:09 Dose: 40 mg Ferrous Sulfate (Feosol -) 325 mg PO DAILY@0800 [facility] Last Admin: 12/30/18 10:17 Dose: 325 mg Guaifenesin (Diabetic Tussin Dm -) 5 ml PO Q6H PRN PRN Reason: COUGH Last Admin: 12/30/18 09:54 Dose: 5 ml Ampicillin Sodium/Sulbactam (Sodium 1.5 gm/ Sodium Chloride) 100 mls @ 200 mls/ hr IVPB Q6H-IV [facility] Last Admin: 12/30/18 10:07 Dose: 200 mls/hr Lactated Ringer's (Lactated Ringers Solution) 1,000 ml in 1,000 mls @ 50 mls/ hr IV ASDIR [facility] Last Admin: 12/30/18 10:10 Dose: 50 mls/hr Insulin Aspart (Novolog Vial Sliding Scale -) 1 vial SQ ACHS [facility]; Protocol Last Admin: 12/30/18 06:12 Dose: Not Given Levothyroxine Sodium (Synthroid -) 88 mcg PO DAILY@0700 [facility] Last Admin: 12/30/18 06:09 Dose: 88 mcg Losartan Potassium (Cozaar -) 50 mg PO DAILY [facility] Last Admin: 12/30/18 10:09 Dose: 50 mg Methylprednisolone Sodium Succinate (Solu-Medrol -) 40 mg IVPUSH DAILY [facility] Last Admin: 12/30/18 10:09 Dose: 40 mg Mupirocin (Bactroban Ointment (For Decolonization) -) 1 applic NS BID [facility] Stop: 01/03/19 09:59 Last Admin: 12/30/18 10:10 Dose: 1 applic Pantoprazole Sodium (Protonix -) 40 mg PO DAILY [facility] Last Admin: 12/30/18 10:09 Dose: 40 mg a/p s/p food impation s/p egd aspiration pneumonia continue unasyn day #2, switch to po augmentin when ready for discharge leukocytosis- secondary to steroids please call back if needed
--- NOTE | 2018-12-30 11:47 | CONSULT ---
Admitting History and Physical - Primary Care Physician PCP: Yobani Plascencia - Admission History of Present Illness: 68 yof with PMHx of HTN, NIDDM, hypothyroidism, C-spine surgery 10/2017, former smoker, recovering from recent URI, comes with impacted food s/p emergent EGD/ removal, post op course complicated by hypoxic and fever Pt reports Dysphagia on solids since Ant/Post cervical fusion 1.5 years ago She has had 5 incidences, "out of the blue", where food gets stuck and she needs to put her finger in her throat to bring it back up. This time, she tried to drink water etc to help it go down and it seemed to lodge, with inability to swallow and expectoration on copious saliva build up resulted. Pt had endoscopy , shrimp food impaction removed. Post endoscopy, she became hypoxic and had fever to 103 +cough now (new)- Per chart-Post procedure hypoxia, Aspiration pneumonitis vs pressure pulmonary edema Pt reports much benefit from her back surgeries. She denies h/o PNA or difficulty with liquids. History Source: Patient Limitations to Obtaining History: No Limitations - Past Medical History Cardiovascular: Yes: HTN, Hyperlipdemia Endocrine: Yes: Diabetes Mellitus, Hypothyroidism - Past Surgical History Past Surgical History: Yes: Laminectomy - Advance Directives Advance Directives: Yes: Health Care Proxy - Smoking History Smoking history: Smoker current status UNK Have you smoked in the past 12 months: No If you are a former smoker, when did you quit?: 2006 - Alcohol/Substance Use Hx Alcohol Use: No - Social History ADL: Independent Occupation: retired History of Recent Travel: No History - Admission Reason For Visit: BOLUS IMPACTION OF DIGESTIVE TRACT - Diagnostics X-ray: Report Reviewed - General Mental Status: Alert and Oriented, Awake and Alert, Able to Follow Commands Attention: Intact Ability to Follow Directions: Excellent Head/Neck Control: WFL - Hearing Hearing: Normal Hearing Aide: No Speech Evaluation - Communication Primary Language: [place] Communication: Yes: Within Normal Limits Oral Expression Ability: Yes: No Impairment - Speech Production Able to Make Needs Known: Yes: WNL Intelligibility: Yes: WNL - Speech Characteristics Voice Loudness: Normal Voice Pitch: Yes: Normal Voice Phonatory-based Quality: Yes: Normal, Dysphonia Speech Pattern: Normal Speech Clarity: < 100% Nasal Resonance: Normal Articulation: Yes: Precise - Language/Auditory Comprehension Follows: Yes: 2 Stage Simple Commands - Language/Verbal Expression Able to Respond to Simple Queries: Yes: WNL Able to Communicate Wants and Needs: Yes: WNL Functional Communication Status: Yes: WNL Attention: Yes: Intact - Memory/Perception intermediate project manager Memory: Yes: WNL Short Term Memory: Yes: WNL - Swallow Evaluation/Bedside Assessment Current Nutritional Intake: Clear Liquids, Other (Pt diet changed to soft,pt had difficulty to swallow rice. Placed back on clears.) Dentition: Yes: Adequate Facial Symmetry at Rest: Symmetrical Facial Symmetry on Retraction: Symmetrical Facial Movement: Controlled Sensation: Normal Against Resistance Opening: Normal Against Resistance Closing: Normal Pucker Lips: Normal Smile: Normal Lingual Movement: Normal, Symmetric Lingual Speed of Movement: Normal Lingual Movement Strgth Against Opposition: Normal Lingual Movement Characteristics: Normal Velopharyngeal Movement: Normal Laryngeal Elevation: WFL Laryngeal Movement: Able to Palpate Rate of Intake: WFL Bolus Size: WFL Labial Seal: WFL Chewing: WFL Oral Prep Time: WFL A-P Transit: WFL Pocketing: None Timing of Swallow: WFL Coughing/Throat Clear: No Change in Voice: No Recommendations - Speech Evaluation, Impression/Plan Impression: H/o difficulty with solids 5 times since Ant/Post fusion x 1.5 years ago. Emergent endoscopy retrieved shrimp from esophagus. Diet upgraded to soft. Pt reported tolerating zucchini but when linwood had a spoonful of rice, it lodged and when she took water to wash it down, the water came back up. R/o pharyngeal/esophageal dysphagia. - Dysphagia Impressions/Plan Swallowing Skills: Impaired Dysphagia Impressions: Risk of Aspiration, Ongoing Evaluation *Silent aspiration: cannot be R/O at bedside Recommendations: MBS w Esophagus
--- NOTE | 2018-12-30 13:14 | PN ---
Teaching Attending Note Name of Resident: Panchito Quintana ATTENDING PHYSICIAN STATEMENT I saw and evaluated the patient. I reviewed the resident's note and discussed the case with the resident. I agree with the resident's findings and plan as documented. SUBJECTIVE: Pt seen and examined in the ICU. States breathing better today. +cough with dark thick sputum. No fevers recorded. OBJECTIVE: Vital Signs Period Temp Pulse Resp BP Sys/David Pulse Ox Last 24 Hr 98 F-98.9 F 84-111 13-19 106-150/48-80 90-93 Intake & Output 12/27/18 12/28/18 12/29/18 12/30/18 23:59 23:59 23:59 23:59 Intake Total 300 3265 730 Output Total 800 Balance 300 2465 730 Weight 70.76 kg 70.76 kg Gen: NAD at rest Heart: RRR Lung: right base rales Abd: soft, nontender Ext: no edema CBC, BMP 12/30/18 05:30 12/30/18 05:30 Active Medications Acetaminophen (Tylenol -) 650 mg PO Q6H PRN PRN Reason: PAIN OR FEVER Last Admin: 12/29/18 18:37 Dose: 650 mg Albuterol/Ipratropium (Duoneb -) 1 amp NEB Q6H PRN PRN Reason: WHEEZING Amlodipine Besylate (Norvasc -) 5 mg PO DAILY [facility] Last Admin: 12/30/18 10:09 Dose: 5 mg Atorvastatin Calcium (Lipitor -) 20 mg PO HS [facility] Last Admin: 12/29/18 21:33 Dose: 20 mg Chlorhexidine Gluconate (Hibiclens For Decolonization -) 1 applic TP [facility] Last Admin: 12/29/18 21:34 Dose: 1 applic Docusate Sodium (Colace -) 100 mg PO TID [facility] Last Admin: 12/30/18 06:09 Dose: 100 mg Enoxaparin Sodium (Lovenox -) 40 mg SQ DAILY [facility] Last Admin: 12/30/18 10:09 Dose: 40 mg Ferrous Sulfate (Feosol -) 325 mg PO DAILY@0800 [facility] Last Admin: 12/30/18 10:17 Dose: 325 mg Guaifenesin (Diabetic Tussin Dm -) 5 ml PO Q6H PRN PRN Reason: COUGH Last Admin: 12/30/18 09:54 Dose: 5 ml Ampicillin Sodium/Sulbactam (Sodium 1.5 gm/ Sodium Chloride) 100 mls @ 200 mls/ hr IVPB Q6H-IV [facility] Last Admin: 12/30/18 10:07 Dose: 200 mls/hr Lactated Ringer's (Lactated Ringers Solution) 1,000 ml in 1,000 mls @ 50 mls/ hr IV ASDIR [facility] Last Admin: 12/30/18 10:10 Dose: 50 mls/hr Insulin Aspart (Novolog Vial Sliding Scale -) 1 vial SQ ACHS [facility]; Protocol Last Admin: 12/30/18 12:00 Dose: Not Given Levothyroxine Sodium (Synthroid -) 88 mcg PO DAILY@0700 [facility] Last Admin: 12/30/18 06:09 Dose: 88 mcg Losartan Potassium (Cozaar -) 50 mg PO DAILY [facility] Last Admin: 12/30/18 10:09 Dose: 50 mg Methylprednisolone Sodium Succinate (Solu-Medrol -) 40 mg IVPUSH DAILY [facility] Last Admin: 12/30/18 10:09 Dose: 40 mg Mupirocin (Bactroban Ointment (For Decolonization) -) 1 applic NS BID [facility] Stop: 01/03/19 09:59 Last Admin: 12/30/18 10:10 Dose: 1 applic Pantoprazole Sodium (Protonix -) 40 mg PO DAILY [facility] Last Admin: 12/30/18 10:09 Dose: 40 mg ASSESSMENT AND PLAN: Esophageal Impaction s/p EGD Acute Hypoxic Respiratory Failure improving Pneumonia COPD HTN DM Hypothyroidism h/o Cervical Laminectomy - continue antibiotics - f/u cultures - O2 to keep SpO2 >90% - inhaled bronchodilators - continue medrol - swallow eval - when ready for discharge, check ambulatory SpO2 on room air to assess for home O2 - DVT prophylaxis - can monitor on floor
--- NOTE | 2018-12-30 17:50 | PN ---
Physical Exam: SUBJECTIVE: Patient seen and examined HD# 3 ICU Day 3 Overnight Events: No acute events reported overnight. Tried eating chicken yesterday but coughed and threw it up. Tolerating soft diet well. Reports right sided chest pain when coughing or moving. Endorses productive cough. OBJECTIVE: Vital Signs Period Temp Pulse Resp BP Sys/David Pulse Ox Last 24 Hr 98.2 F-99.5 F 84-111 13-22 106-150/48-80 86-93 12 Hour I/Os (thus far): I/Os not strictly monitored. Lines: - PIV Drains: - None Supplemental Oxygen: 3 LPM via nasal cannula Physical Exams: GENERAL: The patient is awake, alert, and fully oriented, in no acute distress. NECK: Trachea midline, full range of motion, supple. LUNGS: Nasal cannula in place. Unlabored. Breath sounds present bilaterally. Trace rhonchi in right lower anterior field. No wheezes or stridor. HEART: Regular rate and rhythm, S1, S2 without murmur, rub or gallop. ABDOMEN: Soft, nontender, nondistended. EXTREMITIES: 2+ pulses, warm, well-perfused, no edema. PSYCH: Normal mood, normal affect. SKIN: Warm and dry. Drips: LR @ 50 Anti Infectives: - Unasyn Day 2 Laboratory Results - last 24 hr 12/29/18 12/29/18 12/30/18 21:36 22:00 05:30 WBC 14.3 H RBC 3.42 L Hgb 9.3 L Hct 28.3 L MCV 82.6 MCH 27.0 MCHC 32.7 RDW 15.6 Plt Count 295 MPV 7.2 L Sodium Potassium Chloride Carbon Dioxide Anion Gap BUN Creatinine Creat Clearance w eGFR POC Glucometer 114 Random Glucose Calcium Phosphorus Magnesium Influenza A (Rapid) Negative Influenza B (Rapid) Negative 12/30/18 12/30/18 12/30/18 05:30 06:03 11:53 WBC RBC Hgb Hct MCV MCH MCHC RDW Plt Count MPV Sodium 143 Potassium 4.0 Chloride 108 H Carbon Dioxide 30 Anion Gap 5 L BUN 9 Creatinine 0.6 Creat Clearance w eGFR 98.83 POC Glucometer 123 134 Random Glucose 124 H Calcium 8.0 L Phosphorus 3.4 Magnesium 1.9 Influenza A (Rapid) Influenza B (Rapid) 12/30/18 17:07 WBC RBC Hgb Hct MCV MCH MCHC RDW Plt Count MPV Sodium Potassium Chloride Carbon Dioxide Anion Gap BUN Creatinine Creat Clearance w eGFR POC Glucometer 255 Random Glucose Calcium Phosphorus Magnesium Influenza A (Rapid) Influenza B (Rapid) Active Medications Generic Name Dose Route Start Last Admin Trade Name Freq PRN Reason Stop Dose Admin Acetaminophen 650 mg 12/29/18 18:23 12/29/18 18:37 Tylenol - PO 650 mg Q6H PRN Administration PAIN OR FEVER Albuterol/Ipratropium 1 amp 12/28/18 23:08 Duoneb - NEB Q6H PRN WHEEZING Amlodipine Besylate 5 mg 12/29/18 10:00 12/30/18 10:09 Norvasc - PO 5 mg DAILY [facility] Administration Atorvastatin Calcium 20 mg 12/29/18 22:00 12/29/18 21:33 Lipitor - PO 20 mg HS [facility] Administration Chlorhexidine Gluconate 1 applic 12/29/18 22:00 12/29/18 21:34 Hibiclens For Decolonization - TP 1 applic HS [facility] Administration Docusate Sodium 100 mg 12/29/18 06:00 12/30/18 14:57 Colace - PO Not Given TID [facility] Enoxaparin Sodium 40 mg 12/29/18 10:00 12/30/18 10:09 Lovenox - SQ 40 mg DAILY [facility] Administration Ferrous Sulfate 325 mg 12/29/18 08:00 12/30/18 10:17 Feosol - PO 325 mg DAILY@0800 [facility] Administration Guaifenesin 5 ml 12/30/18 08:48 12/30/18 17:35 Diabetic Tussin Dm - PO 5 ml Q6H PRN Administration COUGH Ampicillin Sodium/Sulbactam 100 mls @ 200 mls/hr 12/29/18 09:45 12/30/18 15: 01 Sodium 1.5 gm/ Sodium Chloride IVPB 200 mls/hr Q6H-IV [facility] Administration Lactated Ringer's 1,000 ml in 1,000 mls @ 50 mls/hr 12/29/18 09:41 12/30/18 10:10 Lactated Ringers Solution IV 50 mls/hr ASDIR [facility] Administration Insulin Aspart 1 vial 12/29/18 07:00 12/30/18 17:33 Novolog Vial Sliding Scale - SQ 6 units ACHS [facility] Administration Protocol Levothyroxine Sodium 88 mcg 12/29/18 07:00 12/30/18 06:09 Synthroid - PO 88 mcg DAILY@0700 [facility] Administration Losartan Potassium 50 mg 12/29/18 10:00 12/30/18 10:09 Cozaar - PO 50 mg DAILY [facility] Administration Methylprednisolone Sodium Succinate 40 mg 12/30/18 10:00 12/30/18 10:09 Solu-Medrol - IVPUSH 40 mg DAILY [facility] Administration Mupirocin 1 applic 12/29/18 10:00 12/30/18 10:10 Bactroban Ointment (For Decolonization) - NS 01/03/19 09:59 1 applic BID [facility] Administration Pantoprazole Sodium 40 mg 12/30/18 10:00 12/30/18 10:09 Protonix - PO 40 mg DAILY [facility] Administration ASSESSMENT/PLAN: 68 year old female with h/o heavy tobacco usage (quit 2004), COPD, diabetes, HTN , hypothyroidism, L brain chronic ischemic infarct, s/p L5-S1 laminectomies. S/ p urgent endoscopy for food bolus. Admitted to ICU for post-anesthesia hypoxia. Neuro (& Psych): - A/O x4. No sedating medications. - L brain chronic ischemic infarct. Stable. No intervention required at this time. Endocrine: - Hypothyroidism. C/w home Synthroid. - Diabetes. Placed on Insulin sliding scale. - Pre-op electrolytes within normal limits. Will trend in the morning. Cardiovascular: - Borderline tachycardia. Suspect secondary to anesthesia versus mild volume loss. Ordered LR maintenance fluids to replenish. - HTN. C/w home Amlodipine and Losartan as BP allows. - HLD. C/w home Atorvastatin. Pulm / Resp: - Hypoxic post Sevoflurane anesthesia. Suspect secondary to COPD exacerbation. Continue steroids to complete 5 day course. Can consider transition to PO if able. Bronchodilators as needed. - Pre and post exertional SPO2 monitoring performed. Desaturation to 88%. May consider home oxygen therapy. - Continue oxygen therapy and continuous pulse oximetry monitoring while in ICU. Gastrointestinal: - Dysphagia. Ordered speech and swallow evaluation and modified barium swallow. - C/w home Colace for constipation. Hematologic: - H/H stable pre-operatively. Infectious Disease: - Leukocytosis uptrending. Possible reactive versus secondary to aspirational pneumonia. - Possible aspiration pneumonia given productive cough. Receiving Unasyn. Suggest transitioning to PO if able after swallow study. - F/u pending cultures. NGTD. FEN: - IVF LR @ 50mL/hr - Soft diet - C/w home Ferrous Sulfate Prophylaxis: - DVT: Lovenox - GI: Protonix per GI recommendation Dispo: Pt stable for care to be de-escalated to med/surg with spot SPO2 monitoring. Panchito Quintana MD, PGY1 ICU Consult Service Visit type - Emergency Visit Emergency Visit: No - New Patient This patient is new to me today: No - Critical Care Critical Care patient: Yes Total Critical Care Time (in minutes): 40 Critical Care Statement: The care of this patient involved high complexity decision making to prevent further life threatening deterioration of the patient 's condition and/or to evaluate & treat vital organ system(s) failure or risk of failure.
--- NOTE | 2018-12-30 19:25 | PN.GI ---
GI Progress Note Subjective: pt was seen and examined at bed side , doing well ,no fever over night , tolerating regular diet with plenty of fluids and no abdominal pain ,N.V. had BM today . will be transferred out of unit today . - Objective Vital Signs: Vital Signs Temperature 99.5 F 12/30/18 15:00 Pulse Rate 89 12/30/18 16:00 Respiratory Rate 22 H 12/30/18 16:00 Blood Pressure 145/71 12/30/18 16:00 O2 Sat by Pulse Oximetry (%) 92 L 12/30/18 14:00 Constitutional: Well Nourished, No Distress, Calm Eyes: Yes: Conjunctiva Clear, EOM Intact Neck: Yes: Supple Cardiovascular: Yes: Regular Rate and Rhythm Respiratory: Yes: CTA Bilaterally Gastrointestinal Inspection: No: Ascites, Distention, Hernia ...Auscultate: Yes: Normoactive Bowel Sounds ...Palpate: No: Firm/Rigid, Tenderness, Tenderness, Epigastium ...Rectal Exam: Yes: Deferred Edema: No Labs: CBC, BMP 12/30/18 05:30 12/30/18 05:30 <Adolph Bedner - Last Filed: 12/30/18 19:31> - Objective Vital Signs: Vital Signs Temperature 99.5 F 12/30/18 15:00 Pulse Rate 89 12/30/18 16:00 Respiratory Rate 22 H 12/30/18 16:00 Blood Pressure 145/71 12/30/18 16:00 O2 Sat by Pulse Oximetry (%) 92 L 12/30/18 14:00 Labs: CBC, BMP 12/30/18 05:30 12/30/18 05:30 <Mariaa Sullivan - Last Filed: 12/30/18 19:45> Assessment/Plan Pt seen/examined with Dr. Bender, agree with above assessment and plan. Pt s/p EGD with food bolus disimpaction course complicated by fever and hypoxia. 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 DC planning. -Recommend continue diet as tolerated -Advised to chew carefully and take small bites -Continue PPI -Pt will require repeat EGD in 4 weeks with distal/proximal biopsies r/o eosinophilic esophagitis -GI followup as outpt <Mariaa Sullivan - Last Filed: 12/30/18 19:45> Problem List - Problems (1) Dysphagia Assessment/Plan: S/P EGD S/P Speech and swallow evaluation S/P modified barium swallow recomend small bite with fluids and aspiration precautions , no meals 3 hour before bed time ,out of bed for food tolerating regular diet to day with plenty of fluids No fever , no abdominal pain no D/C , need to repeat EGD in 4 weeks for biposies . follow up as out pt Code(s): R13.10 - DYSPHAGIA, UNSPECIFIED <Adolph Bender - Last Filed: 12/30/18 19:31>
[2018-12-30] MEDS ORDERED: ACETAMINOPHEN 325 MG TABLET (FP) PO PRN (19:38)
[2018-12-30] MEDS ORDERED: guaiFENesin/D-M SUGAR-FREE/ACLHOL-FREE 118 ML BOTTLE PO PRN (19:38)
[2018-12-30] MEDS ORDERED: ALBUTEROL SO4 2.5/IPRATROPIUM 0.5 INH SOL 3 ML VIAL.NEB. NEB PRN (19:38)
[2018-12-30] MEDS ORDERED: ATORVASTATIN CA 20 MG TABLET (FP) PO SCH (22:00)
[2018-12-30] MEDS ORDERED: ZOLPIDEM TARTRATE 5 MG TABLET PO ONE (22:00)
[2018-12-30] MEDS ORDERED: MUPIROCIN 2% TOPICAL OINTMENT FOR DECOLONIZATION NS SCH (22:00)
[2018-12-31] MEDS ORDERED: PT OWN MED DRAWER 7, Y5N ONE (03:23)
[2018-12-31] MEDS: AMPICILLIN NA/SULBACTAM NA 1.5 GM in SODIUM CHLORIDE 100 ML IVPB SCH ×2 (03:39→11:02)
[2018-12-31 06:06] VITALS: BP 147/61; PULSE 90; TEMP 98.8
[2018-12-31] MEDS: DOCUSATE SODIUM 100 MG CAPSULE (FP) PO SCH (06:29)
[2018-12-31] MEDS: INSULIN SLIDING SCALE (NOVOLOG) 1 VIAL SQ SCH ×2 (06:29→11:07)
[2018-12-31] MEDS ORDERED: LEVOTHYROXINE NA 88 MCG TABLET (FP) PO SCH (07:00)
[2018-12-31 07:35] LABS: ANION GAP 8 MMOL/L (8-16); BLOOD UREA NITROGEN 8 mg/dL (7-18); CALCIUM 8.4 mg/dL (8.5-10.1); CHLORIDE 107 mmol/L (98-107); CO2 29 mmol/L (21-32); CREATININE 0.6 mg/dL (0.55-1.3); GLUCOSE,RANDOM 98 mg/dL (74-106); MAGNESIUM 1.6 mg/dL (1.8-2.4); PHOSPHOROUS 3.6 mg/dL (2.5-4.9); POTASSIUM 3.6 mmol/L (3.5-5.1); SODIUM 144 mmol/L (136-145)
[2018-12-31] MEDS ORDERED: MAGNESIUM SULF 50% (8.12 MEQ/2 ML-1 GM VIAL) IVPB ONE (07:38)
[2018-12-31] MEDS ORDERED: FERROUS SO4 325 MG TABLET (FP) PO SCH (08:00)
--- NOTE | 2018-12-31 08:11 | DS ---
Physical Exam: SUBJECTIVE: Patient seen and examined, cough improved. Tolerating diet well. No fevers, chills, dyspnea or new concerns. OBJECTIVE: Vital Signs Period Temp Pulse Resp BP Sys/David Pulse Ox Last 24 Hr 98.7 F-99.5 F 89-111 16-22 135-150/61-76 86-94 Intake & Output 12/28/18 12/29/18 12/30/18 12/31/18 23:59 23:59 23:59 23:59 Intake Total 300 3265 2330 Output Total 800 Balance 300 2465 2330 Weight 156 lb 156 lb PHYSICAL EXAM GENERAL: sitting in bed, markedly improved, comfortable, no coughing noted today CVS:S1S2 regular Chest: Improved air entry, right basilar rales Abdomen:Soft, obese, NT, positive bowel sounds Extremities: no edema neck: soft, supple, no JVD Psych: co-operative, pleasant LABS Laboratory Results - last 24 hr 12/30/18 12/30/18 12/30/18 11:53 17:07 21:00 Sodium Potassium Chloride Carbon Dioxide Anion Gap BUN Creatinine Creat Clearance w eGFR POC Glucometer 134 255 158 Random Glucose Calcium Phosphorus Magnesium 12/31/18 12/31/18 06:00 06:28 Sodium 144 Potassium 3.6 Chloride 107 Carbon Dioxide 29 Anion Gap 8 BUN 8 Creatinine 0.6 Creat Clearance w eGFR 98.83 POC Glucometer 112 Random Glucose 98 Calcium 8.4 L Phosphorus 3.6 Magnesium 1.6 L Modified Barium Swallow: ORAL STAGE: Good mastication, bolus formation and transfer . PHARYNGEAL STAGE: The swallow reflex was brisk with no aspiration, penetration or stasis demonstrated on any consistency. ESOPHAGEAL STAGE: Limited assessment of the esophagus in upright. No gross structural abnormalities. Thin liquids passed through the esophagus without difficulty. There was hang-up of solids building up throughout the esophagus with delayed clearance. Delayed but good clearance when followed up by thin liquid. Patient is a diabetic. IMPRESSION: No aspiration penetration or stasis in the pharyngeal cavity. Swallow reflex is quite brisk. Impaired esophageal emptying with solids, with improved clearance with follow-up of liquid. Esophageal dysphagia may be secondary to Diabetes. RECOMMENDATIONS: Patient observed the study and was educated on the results. Trial of soft, regular food. Out of bed for all meals. Meals should be initiated with liquid first. Patient should take small bites, chew well and swallow, followed by a sip of liquid. Complete meal with liquid. Upright for an hour after meals. Avoid po intake within 2 to 3 hours at bedtime. GERD precautions also reviewed including reducing caffeine and tomatoes. HOSPITAL COURSE: Date of Admission:12/28/18 Date of Discharge: 12/31/18 Minutes to complete discharge: 40 Discharge Summary Reason For Visit: BOLUS IMPACTION OF DIGESTIVE TRACT Current Active Problems Aspiration pneumonia (Acute) Bolus impaction of digestive tract (Acute) Dysphagia (Acute) Esophageal obstruction due to food impaction (Acute) Hospital Course: 68 yof with PMHx of HTN, NIDDM, hypothyroidism, C-spine surgery 10/2017, former smoker, recovering from recent URI, was admitted with food impaction and inability to swallow saliva. She was emergently taken for EGD with impacted food removal. Her post procedure course was complicated by hypoixia to 80s and fevers upto 103. She receieved steroids and was monitored in the ICU. Infectious disease was consulted, she was started on unasyn. She was seen by pulmonary and suspected to have underlying COPD given her smoking history. She was evaluated by speech/swallow and had MBS with detailed instructions that have been discussed with the patient. She was noted hypoxic with ambulation and home oxygen has been arranged. She will be discharged on a short course of prednisone and augmentin with outpatient follow up with GI for repeat EGD in 4 weeks with mid esophagus biopsies and pulmonary. She will be discharged on stable condition. Condition: Stable - Instructions Diet, Activity, Other Instructions: You were admitted with food being stuck, and were emergently taken for endoscopy with successful removal of the food. After the procedure your oxygen was noted low and you had fevers. You were monitored in the Intensive care unit. You were treated with steroids and antibiotics. You were evaluated by speech/ swallow therapist and recommendations are as below. You have been arranged for oxygen at home. MEDICATIONS: Antibiotic Augmentin twice daily for 7 days Protonix 40 mg daily till further directed by your doctor. Prednisone 40 mg daily for 3 days, then stop. Magnesium 800 mg daily for 3 days Continue other medications as before INSTRUCTIONS: Sit upright for all meals. Start meal with liquids. Small bites, chew well and swallow, followed by a sip of liquid. Finish meal with liquid. Sit upright for one hour post meal. Avoid eating 2-3 hours before bedtime. Reduce caffeine/ tomatoes. use 3 liters oxygen with rest and activity. NO SMOKING AROUND OXYGEN A FIRE HAZARD. Also advise to monitor your blood sugars especially while on steroids. Advise to check before meals and at bedtime and maintain a diary, if persistently >150 please contact your doctor. FOLLOW UP: With Primary care doctor in [address] Madrigal in 1-2 weeks. You will need repeat EGD ( endoscopy) in 4 weeks with biopsies of mid esophagus. With inventory specialist (lung doctor) for further testing on your lungs and address alf oxygen needs. If you notice any new fevers,chills, worsening breathing, severe coughing, inability to swallow, dark or bloody stool or vomitus or any new concerns, please call 911 or come to the ED. Referrals: Mariusz Little MD [Staff Physician] - Cheyenne Madrigal DO [Staff Physician] - Vargas Gee MD [Staff Physician] - Disposition: VNS/HOME HEALTH CARE - Home Medications Comprehensive Discharge Medication List: Ambulatory Orders Amlodipine Besylate 10 mg PO DAILY 12/29/18 Aspirin [Ecotrin] 81 mg PO DAILY 12/29/18 Atorvastatin Ca [Lipitor] 20 mg PO HS 12/29/18 Glimepiride 2 mg PO DAILY 12/29/18 Levothyroxine [Synthroid -] 88 mcg PO DAILY 12/29/18 Losartan Potassium 50 mg PO DAILY 12/29/18 Metformin HCl [Glucophage] 1,000 mg PO BID 12/29/18 Omeprazole 20 mg PO PRN 12/29/18 Zolpidem Tartrate 10 mg PO HS 12/29/18 Amox-Tr/K Cl [Augmentin - 875Mg Tablet] 1 tab PO BID 7 Days #14 tablet 12/31/18 Lancets/Blood Glucose Strips [Fora [id number] Strp-Lnct] 1 each ACHS # 100 combo..pkg 12/31/18 Magnesium Oxide 800 mg PO DAILY #3 tablet 12/31/18 Miscellaneous Medical Supply [Glucometer Device] 1 each .ROUTE ASDIR #1 kit Prednisone 40 mg PO DAILY #3 tablet 12/31/18 This patient is new to me today: No Emergency Visit: Yes ED Registration Date: 12/28/18 Care time: The patient presented to the Emergency Department on the above date and was hospitalized for further evaluation of their emergent condition. Critical Care patient: No - Discharge Referral Referred to [facility] No
[2018-12-31] MEDS ORDERED: amLODIPine BESYLATE 5 MG TABLET (FP) PO SCH (10:00)
[2018-12-31] MEDS ORDERED: methylPREDNISolone NA SUCC 40 MG/1 ML VIAL IVPUSH SCH (10:00)
[2018-12-31] MEDS ORDERED: LOSARTAN POTASSIUM 50 MG TABLET (FP) PO SCH (10:00)
[2018-12-31] MEDS ORDERED: PANTOPRAZOLE 40 MG TABLET (FP) PO SCH (10:00)
[2018-12-31] MEDS ORDERED: ENOXAPARIN NA (PORCINE) 40 MG/0.4 ML DISP.SYRIN SQ SCH (10:00)
--- NOTE | 2018-12-31 13:55 | PN ---
Progress Note, BAND EDGER - Note Progress Note: Selected Entries 12/30/18 12/30/18 12/30/18 02:00 10:00 15:00 Breakfast 100% 100% Diet Tolerated Well Well Lunch 100% Temperature 98.2 F 99.5 F 12/30/18 12/31/18 12/31/18 19:40 06:00 09:39 Breakfast 100% Diet Tolerated Well Lunch Temperature 98.7 F 98.8 F Pt seen before discharge, tolerating diet well. She was aware of all compensatory swallowing recommendations and planned to continue to follow them upon d/c.
== END 2018-12-31 13:05 | disposition home health service (06) | DRG 393 ==
LOC: JER 18:57 → JICU 20:21 → J7W 12-30 19:26
PROVIDERS: ADMIT Internal Medicine Gastroenterology; ATTEND Hospitalist
PROC: 0DC58ZZ Extirpation of Matter from Esophagus, Via Natural or Artificial Opening Endoscopic (ICD-10-PCS; principal; 2018-12-28 21:30)
DX: T18.128A Food in esophagus causing other injury, initial encounter (principal); J69.0 Pneumonitis due to inhalation of food and vomit; J96.01 Acute respiratory failure with hypoxia; J95.89 Other postprocedural complications and disorders of respiratory system, not elsewhere classified; R13.10 Dysphagia, unspecified; I10 Essential (primary) hypertension; E03.9 Hypothyroidism, unspecified; E11.9 Type 2 diabetes mellitus without complications; F17.210 Nicotine dependence, cigarettes, uncomplicated; R09.02 Hypoxemia; R00.0 Tachycardia, unspecified; R50.9 Fever, unspecified; K22.2 Esophageal obstruction; J44.9 Chronic obstructive pulmonary disease, unspecified; D72.829 Elevated white blood cell count, unspecified
CPT/HCPCS: 36415; 71045-TC-FY; 71046-TC-FY; 74019-TC-FY; 74230-TC-FY; 80048; 80053; 82962; 83735; 84100; 85025; 85027; 87040; 87070; 87205; 87804; 87899; 92611-GN; 93005; 93010; 94640; 94760; 94761; 99283-25; J0131

== ENCOUNTER 2019-01-13 08:23 | Day surgery (SDC) | payer OTHER ==
[2019-01-10 16:21] VITALS: BMI 31.4
[2019-01-13 10:25] VITALS: TEMP 97.8
[2019-01-13 11:58] VITALS: BP 117/61; PULSE 78
--- NOTE | 2019-01-14 18:27 | PATH ---
Surgical Pathology Report Patient Name: MIGUEL ANGEL WALTER [facility]. Rec. #: [id number] /Age/Gender: 1950 (Age: 68) / F Account: [id number] Location: ASU-ENDOSCOPY Taken: 01/13/2019 Received: 01/13/2019 Reported: 01/14/2019 Physicians: Robe Lynch M.D. Specimen(s) Received A: GASTRIC ULCER B: MID ESOPHAGUS C: SCHATZKI'S RING Clinical History Dysplasia, recent food impaction Final Diagnosis A. GASTRIC ULCER, BIOPSY: GASTRIC MUCOSA WITH CHRONIC GASTRITIS. IMMUNOSTAIN FOR H. PYLORI IS NEGATIVE. NEGATIVE FOR INTESTINAL METAPLASIA. B. MID ESOPHAGUS, BIOPSY: ESOPHAGEAL MUCOSA WITH NO SIGNIFICANT PATHOLOGIC CHANGE. NO HISTOLOGIC EVIDENCE OF EOSINOPHILIC ESOPHAGITIS. C. SCHATZKI'S RING, BIOPSY: ESOPHAGEAL MUCOSA WITH NO SIGNIFICANT PATHOLOGIC CHANGE. NO HISTOLOGIC EVIDENCE OF EOSINOPHILIC ESOPHAGITIS. Electronically Signed Espinoza Saucedo M.D. Gross Description A. Received in formalin, labeled "gastric ulcer" is a mejias, irregular portion of soft tissue measuring 0.3 cm. in greatest dimension. The specimens are submitted in toto in one cassette. B. Received in formalin, labeled "mid esophagus" are 2 mejias, irregular portion of soft tissue measuring 0.3 cm. in greatest dimension. The specimens are submitted in toto in one cassette. C. Received in formalin, labeled "schatzski' ring" are multiple mejias, irregular portions of soft tissue measuring 0.3 cm. in greatest dimension. The specimens are submitted in toto in one cassette. NEIL/01/13/2019 abraham/01/13/2019
== END 2019-01-13 11:30 | disposition home or self-care (01) ==
LOC: JASU-ENDO 08:23
PROVIDERS: ATTEND Internal Medicine Gastroenterology
PROC: 0DB68ZX Excision of Stomach, Via Natural or Artificial Opening Endoscopic, Diagnostic (ICD-10-PCS; 2019-01-13)
PROC: 0DB28ZX Excision of Middle Esophagus, Via Natural or Artificial Opening Endoscopic, Diagnostic (ICD-10-PCS; 2019-01-13)
PROC: 0D748ZZ Dilation of Esophagogastric Junction, Via Natural or Artificial Opening Endoscopic (ICD-10-PCS; 2019-01-13)
PROC: 0DB38ZX Excision of Lower Esophagus, Via Natural or Artificial Opening Endoscopic, Diagnostic (ICD-10-PCS; principal; 2019-01-13 09:45)
DX: K22.2 Esophageal obstruction (principal); K44.9 Diaphragmatic hernia without obstruction or gangrene; K21.9 Gastro-esophageal reflux disease without esophagitis; K25.9 Gastric ulcer, unspecified as acute or chronic, without hemorrhage or perforation; E11.9 Type 2 diabetes mellitus without complications; Z79.84 Long term (current) use of oral hypoglycemic drugs
CPT/HCPCS: 82962; 88305-TC; 88342-TC

== ENCOUNTER 2019-08-07 10:26 | Day surgery (SDC) | payer OTHER ==
[2019-08-06 17:01] VITALS: BMI 31.2
[~2019-08-07 10:26] MED LIST: HEPARIN NA (PORCINE) 5,000 UNITS/ML 1ML VIAL IP ONE; LIDOCAINE HCL 1%, 10 MG/ML (20ML VIAL) PNB ONE
[2019-08-07 12:21] VITALS: TEMP 98.4
[2019-08-07] MEDS ORDERED: HEPARIN NA (PORCINE) 5,000 UNITS/ML 1ML VIAL ONE ×2 (13:17→15:17)
[2019-08-07] MEDS ORDERED: LIDOCAINE HCL 1%, 10 MG/ML (20ML VIAL) ONE (13:17)
[2019-08-07] MEDS ORDERED: MIDAZOLAM HCL 2 MG/2 ML SINGLE DOSE VIAL ONE (14:14)
[2019-08-07] MEDS ORDERED: PROPOFOL 20 ML ONE ×2 (14:14)
[2019-08-07] MEDS ORDERED: LIDOCAINE HCL/PF 2% SDV 5ML VIAL ONE (14:26)
--- NOTE | 2019-08-07 14:47 | HP ---
Admitting History and Physical - Admission Chief Complaint: left lower extremity claudication less than 2 blocks Limitations to Obtaining History: No Limitations - Past Medical History Cardiovascular: Yes: HTN, Hyperlipdemia Endocrine: Yes: Diabetes Mellitus, Hypothyroidism - Past Surgical History Past Surgical History: Yes: Laminectomy - Smoking History Smoking history: Former smoker Have you smoked in the past 12 months: No If you are a former smoker, when did you quit?: 2006 - Alcohol/Substance Use Hx Alcohol Use: Yes (3-4 glasses wine twice wkly) - Social History ADL: Independent Occupation: retired History of Recent Travel: No Home Medications - Allergies Allergies/Adverse Reactions: Allergies Allergy/AdvReac Type Severity Reaction Status Date / Time No Known Allergies Allergy Verified 08/07/19 12:21 - Home Medications Home Medications: Ambulatory Orders Amlodipine Besylate 10 mg PO DAILY 12/29/18 Atorvastatin Ca [Lipitor] 20 mg PO HS 12/29/18 Glimepiride 2 mg PO DAILY 12/29/18 Levothyroxine [Synthroid -] 88 mcg PO DAILY 12/29/18 Losartan Potassium 50 mg PO DAILY 12/29/18 Metformin HCl [Glucophage] 1,000 mg PO BID 12/29/18 Zolpidem Tartrate 10 mg PO HS 12/29/18 Ascorbic Acid [Vitamin C -] 500 mg PO DAILY 01/10/19 Biotin 1 mg PO DAILY 01/10/19 Cholecalciferol (Vitamin D3) [Vitamin D3] 1,000 unit PO DAILY 01/10/19 Ferrous Sulfate 325 mg PO DAILY 01/10/19 [place]-3 Acid Ethyl Esters [Lovaza -] 1 gm PO DAILY 01/10/19 Vitamin E 1,000 unit PO DAILY 01/10/19 Pantoprazole Sodium [Protonix -] 40 mg PO HS #30 tablet.ec 01/13/19 Acetaminophen [Tylenol -] 500 mg PO PRN 08/06/19 Aspirin [Aspirin EC] 81 mg PO DAILY 08/06/19 Review of Systems - Review of Systems Constitutional: reports: No Symptoms Eyes: reports: No Symptoms HENT: reports: No Symptoms Neck: reports: No Symptoms Cardiovascular: reports: No Symptoms Respiratory: reports: No Symptoms Gastrointestinal: reports: No Symptoms Genitourinary: reports: No Symptoms Musculoskeletal: reports: No Symptoms Integumentary: reports: No Symptoms Neurological: reports: No Symptoms Endocrine: reports: No Symptoms Hematology/Lymphatic: reports: No Symptoms Psychiatric: reports: No Symptoms Physical Examination Vital Signs: Vital Signs Temperature 98.4 F 08/07/19 12:19 Pulse Rate 83 08/07/19 12:19 Respiratory Rate 20 08/07/19 12:19 Blood Pressure 139/54 L 08/07/19 12:19 O2 Sat by Pulse Oximetry (%) 94 L 08/07/19 12:01 Constitutional: Yes: Well Nourished, No Distress, Calm Eyes: Yes: WNL, Conjunctiva Clear, EOM Intact HENT: Yes: WNL, Atraumatic, Normocephalic Neck: Yes: WNL, Supple, Trachea Midline Cardiovascular: Yes: WNL, Regular Rate and Rhythm Respiratory: Yes: WNL, Regular, CTA Bilaterally Gastrointestinal: Yes: WNL, Normal Bowel Sounds Musculoskeletal: Yes: WNL Extremities: Yes: WNL Edema: No Peripheral Pulses WNL: No Integumentary: Yes: WNL Neurological: Yes: WNL, Alert, Oriented ...Motor Strength: WNL Psychiatric: Yes: WNL Problem List - Problems (1) Claudication of left lower extremity Assessment/Plan: for angiogram today . Code(s): I73.9 - PERIPHERAL VASCULAR DISEASE, UNSPECIFIED
[2019-08-07] MEDS ORDERED: LIDOCAINE HCL 1%, 10 MG/ML (20ML VIAL) PNB ONE (15:10)
[2019-08-07] MEDS ORDERED: HEPARIN NA (PORCINE) 5,000 UNITS/ML 1ML VIAL IP ONE (15:15)
--- NOTE | 2019-08-07 15:56 | OP ---
Operative Note - Note: Operative Date: 08/07/19 Pre-Operative Diagnosis: Left lower extremity claudication Findings: 95% stenosis of left SFA Post-Operative Diagnosis: Same as Pre-op Surgeon: Estuardo Devries Anesthesia: Fractional Estimated Blood Loss (mls): 50 Operative Report Dictated: Yes
[2019-08-07] MEDS ORDERED: CLOPIDOGREL BISULFATE 75 MG TABLET (FP) PO ONE (15:58)
[2019-08-07] MEDS ORDERED: CLOPIDOGREL BISULFATE 75 MG TABLET (FP) ONE (16:24)
[2019-08-07 18:43] VITALS: BP 135/60; PULSE 81
--- NOTE | 2019-09-04 09:20 | OP ---
DATE OF OPERATION: 08/07/2019 PREOPERATIVE DIAGNOSIS: Left lower extremity claudication. POSTOPERATIVE DIAGNOSIS: Left lower extremity claudication. PROCEDURE: Aortogram, left lower extremity angiogram. Superficial femoral artery angioplasty with stent placement. SURGEON: Estuardo Yuen DO ANESTHESIA: Fractional. BLOOD LOSS: 50 mL. INDICATION: The patient is a 68-year-old female that complains of left lower extremity claudication less than 2 blocks. She has tried exercise and lifestyle modifications but has not gotten better. Preoperative ultrasound showed that she has SFA stenosis of greater than 80% to 90%. Patient came in to ambulatory surgery. Patient was consented for the procedure, understanding all risks, benefits, and alternatives, and was then taken to the operating room. DESCRIPTION OF PROCEDURE: Once in the operating room, was laid on the operating table in supine manner, and the areas of the left and right groin were prepped and draped in sterile surgical manner. We then injected 10 mL of lidocaine 1% over the right common femoral artery. We then went ahead and used our Micropuncture needle and punctured the right common femoral artery. Micropuncture wire was inserted and Micropuncture sheath was inserted, and a traditional 5-Turkmen sheath was inserted. A 0.035 floppy guidewire was then inserted into the aorta under fluoroscopy, followed by Omniflush catheter. We then shot an aortogram via hand injection showing that the area, iliac arteries were without any disease. We then used a 0.035 floppy guidewire and went up and over into the left common femoral artery, and our Omniflush catheter followed. We then shot a left lower extremity angiogram showing that the common femoral artery, the profunda, and the proximal SFA were patent. The mid to distal SFA had an 85% to 90% stenosis. Popliteal artery was patent, and patient had 2-vessel runoff going into the foot. At this point we placed a 0.035 stiff guidewire into the SFA, removed our Omniflush catheter. A 6 x 45 crossover sheath was placed, 5000 units of IV heparin was administered to the patient. We then went ahead and placed a 0.035 stiff guidewire and got it down to our area of stenosis along with a Quick-Cross catheter, and we were able to cross our lesion. We then went ahead and used a 5 x 6 Ultraverse balloon and performed angioplasty of the SFA. After doing the angioplasty, completion angiogram showed that the SFA was patent but a little dissected. At this point we went ahead and placed a 6 x 4 LifeStent which was ballooned in place using a 5 x 6 Ultraverse balloon. Completion angiogram now showed that the SFA was patent. There were no dissection planes. There was good brisk flow going all the way down into the foot at this point. We brought our sheath up and over. StarClose device was successfully deployed in the right common femoral artery. Pressure was held for 5 minutes. After there was no more bleeding, area was wet and dried and Dermabond was placed. Patient tolerated this procedure no complications. Patient transferred to PACU in stable condition. ESTUARDO YUEN DO NP/[id number]
== END 2019-08-07 17:40 | disposition home or self-care (01) ==
LOC: JASU-SURG 10:26
PROVIDERS: ATTEND Surgery Vascular Surgery
PROC: 047L3DZ Dilation of Left Femoral Artery with Intraluminal Device, Percutaneous Approach (ICD-10-PCS; principal; 2019-08-07 12:30)
DX: I70.212 Atherosclerosis of native arteries of extremities with intermittent claudication, left leg (principal)
CPT/HCPCS: 37226; C1877; 76000-TC-FY; 82962; 94760; J1644

== ENCOUNTER 2020-06-08 10:33 | Emergency (ER) | payer OTHER ==
[2020-06-08 10:37] VITALS: BP 145/50; PULSE 109; TEMP 98.7; BMI 32.2
[2020-06-08] MEDS ORDERED: diazePAM 2 MG TABLET PO ONE (11:13)
[2020-06-08] MEDS ORDERED: ACETAMINOPHEN 1000 MG/100 ML VIAL (NON FORMULARY) IVPB ONE (11:15)
[2020-06-08] MEDS ORDERED: diazePAM 2 MG TABLET ONE (11:17)
[2020-06-08] MEDS ORDERED: ACETAMINOPHEN INJECTION 100 ML IVPB ONE (11:22)
--- NOTE | 2020-06-08 11:56 | PDOC ---
History of Present Illness - General Chief Complaint: Back Pain Stated Complaint: LWR BACK PAIN (EXTREME) Time Seen by Provider: 06/08/20 11:04 - History of Present Illness Initial Comments: 06/08/20 11:54 69-year-old female with multiple comorbidities including coronary artery disease diabetes and hypertension dyslipidemia presents for evaluation of lower back pain times the last few days without any precipitating traumatic event radicular symptoms or urinary incontinence or retention no systemic symptoms. Past History - Medical History Allergies/Adverse Reactions: Allergies Allergy/AdvReac Type Severity Reaction Status Date / Time No Known Allergies Allergy Verified 06/08/20 10:34 Home Medications: Ambulatory Orders Amlodipine Besylate 10 mg PO DAILY 12/29/18 Atorvastatin Ca [Lipitor] 20 mg PO HS 12/29/18 Glimepiride 2 mg PO DAILY 12/29/18 Levothyroxine [Synthroid -] 88 mcg PO DAILY 12/29/18 Losartan Potassium 50 mg PO DAILY 12/29/18 Metformin HCl [Glucophage] 1,000 mg PO BID 12/29/18 Zolpidem Tartrate 10 mg PO HS 12/29/18 Ascorbic Acid [Vitamin C -] 500 mg PO DAILY 01/10/19 Biotin 1 mg PO DAILY 01/10/19 Cholecalciferol (Vitamin D3) [Vitamin D3] 1,000 unit PO DAILY 01/10/19 Ferrous Sulfate 325 mg PO DAILY 01/10/19 [place]-3 Acid Ethyl Esters [Lovaza -] 1 gm PO DAILY 01/10/19 Vitamin E 1,000 unit PO DAILY 01/10/19 Pantoprazole Sodium [Protonix -] 40 mg PO HS #30 tablet.ec 01/13/19 Acetaminophen [Tylenol -] 500 mg PO PRN 08/06/19 Aspirin [Aspirin EC] 81 mg PO DAILY 08/06/19 Clopidogrel Bisulfate [Plavix -] 75 mg PO DAILY #30 tablet 08/07/19 Cyclobenzaprine HCl [Flexeril 10 mg] 10 mg PO HS PRN #10 tablet 06/08/20 Anemia: Yes (LOW IRON) Cardiac Disorders: Yes (CAD, Cardiac Cath,) CVA: Yes (Left cerebellar infarct) COPD: Yes (mild) Diabetes: Yes (on oral medication) GI Disorders: Yes (erosive gastritis, hiatal hernia, Schatzki ring, diverticulosis,) HTN: Yes Hypercholesterolemia: Yes Thyroid Disease: Yes - Surgical History Neurologic Surgery: Yes (anterior c-spine) Orthopedic Surgery: Yes (hand sx, Cervical and lumbar spinal fusions,left foot) - Immunization History Immunization Up to Date: Yes - Psycho-Social/Smoking History Smoking History: Never smoked Have you smoked in the past 12 months: No If you are a former smoker, when did you quit?: 2006 - Substance Abuse Hx (Audit-C & DAST Scrn) How often the patient has a drink containing alcohol: Never Score: In Men: 4 or > Positive; In Women: 3 or > Positive: 0 Screen Result (Pos requires Nsg. Audit-10AR): Negative In the last yr the pt used illegal drug/Rx for NonMed reason: No Score: Yes response is considered Positive: 0 Screen Result (Positive result requires Nsg. DAST-10): Negative Review of Systems - Review of Systems Constitutional: No: Fever Musculoskeletal: Yes: See HPI, Back Pain *Physical Exam - Vital Signs Last Vital Signs Temp Pulse Resp BP Pulse Ox 98.7 F 109 H 20 145/50 L 100 06/08/20 10:34 06/08/20 10:34 06/08/20 10:34 06/08/20 10:34 06/08/20 10:34 - Physical Exam 06/08/20 11:55 Lumbar spine skin color temperature normal range of motion is slightly decreased. No midline tenderness. Moderate bilateral paralumbar musculature spasm and tenderness 5 out of 5 strength bilateral lower extremities without gross sensorimotor deficits thighs and calves are soft and nontender neurovascular intact ED Treatment Course - Medications Given in the ED: ED Medications Discontinued Medications Generic Name Dose Route Start Last Admin Trade Name Luis Miguel PRN Reason Stop Dose Admin Acetaminophen 1,000 mg 06/08/20 11:15 06/08/20 11:18 Ofirmev Injection - IVPB 06/08/20 11:16 1,000 mg ONCE ONE Administration Diazepam 2 mg 06/08/20 11:13 06/08/20 11:18 Valium - PO 06/08/20 11:14 2 mg ONCE ONE Administration Medical Decision Making - Medical Decision Making 06/08/20 11:55 Pain relieved with p.o. Valium and IV Tylenol follow-up with neurosurgery she is under the care of a neurosurgeon. Arlene at home I have reviewed the pathophysiology with the patient. They are in agreement with the treatment plan all questions were answered to their satisfaction. Understanding for follow-up without fail was also conveyed to the patient. Again they are in agreement. Discharge - Discharge Information Problems reviewed: Yes Clinical Impression/Diagnosis: Lower back pain Condition: Stable - Admission No - Additional Discharge Information Prescriptions: Cyclobenzaprine HCl [Flexeril 10 mg] 10 mg PO HS PRN #10 tablet PRN Reason: Muscle Spasms - Follow up/Referral Referrals: Mariusz Little MD [Primary Care Provider] - Silverio Goyal MD, FAANS [Staff Physician] - - Patient Discharge Instructions Additional Instructions: Please take the Flexeril at night before bedtime as directed. No anti- inflammatories such as Advil Motrin Aleve and ibuprofen. You may take Tylenol however you were given a dose of IV Tylenol in the emergency room do not start the oral Tylenol until tomorrow. Follow-up with your neurosurgeon in 1 to 2 days without fail for further evaluation and treatment options and return to the emergency room should symptoms worsen. - Post Discharge Activity
== END 2020-06-08 11:57 | disposition home or self-care (01) ==
LOC: JERFT 10:33
PROC: 3E0333Z Introduction of Anti-inflammatory into Peripheral Vein, Percutaneous Approach (ICD-10-PCS; principal; 2020-06-08)
DX: M54.5 Low back pain (principal)
CPT/HCPCS: 99284-25; J0131

== ENCOUNTER → 2020-12-01 | Day surgery (SDC) | payer OTHER | END | disposition home or self-care (01) | LOC: JMAMMO-SUR 08:33 | PROVIDERS: ATTEND Internal Medicine Geriatric Medicine | PROC: 0H9U3ZX Drainage of Left Breast, Percutaneous Approach, Diagnostic (ICD-10-PCS; principal; 2020-12-01) | DX: C50.912 Malignant neoplasm of unspecified site of left female breast (principal); Z17.0 Estrogen receptor positive status [ER+] | CPT/HCPCS: 19083; 77065-TC; 87899; A4648 ==

== ENCOUNTER 2023-08-14 04:41 | Day surgery (SDC) | payer OTHER ==
[2023-08-13 14:59] VITALS: BMI 29.5
[2023-08-14 10:06] VITALS: TEMP 98.2
[2023-08-14 10:19] VITALS: BP 123/79; PULSE 81; RESP 18
== END 2023-08-14 10:26 | disposition home or self-care (01) ==
LOC: JASU-ENDO 04:41
PROVIDERS: ATTEND Internal Medicine Gastroenterology
PROC: 0DB98ZX Excision of Duodenum, Via Natural or Artificial Opening Endoscopic, Diagnostic (ICD-10-PCS; 2023-08-14)
PROC: 0DB68ZX Excision of Stomach, Via Natural or Artificial Opening Endoscopic, Diagnostic (ICD-10-PCS; 2023-08-14)
PROC: 0DB38ZX Excision of Lower Esophagus, Via Natural or Artificial Opening Endoscopic, Diagnostic (ICD-10-PCS; 2023-08-14)
PROC: 0DJD8ZZ Inspection of Lower Intestinal Tract, Via Natural or Artificial Opening Endoscopic (ICD-10-PCS; principal; 2023-08-14 09:00)
DX: Z12.11 Encounter for screening for malignant neoplasm of colon (principal); K64.8 Other hemorrhoids; K57.30 Diverticulosis of large intestine without perforation or abscess without bleeding; K21.9 Gastro-esophageal reflux disease without esophagitis; K44.9 Diaphragmatic hernia without obstruction or gangrene; K22.2 Esophageal obstruction
CPT/HCPCS: 43239; G0121; 82962; 88305-TC; 88342-TC

== ENCOUNTER 2023-08-23 13:05 | Inpatient (IN) | payer OTHER ==
[2023-08-23 14:55] LABS: BASO % 1.5 % (0-2.0); EOS % 0.7 % (0-4.5); HEMATOCRIT 17.8 % (32.4-45.2); LYMPH % 28.3 % (8-40); MCH 25.9 pg (25.7-33.7); MCHC 32.4 g/dl (32.0-36.0); MEAN CELL VOLUME 80.1 fl (80-96); MEAN PLT VOLUME 6.8 fl (7.5-11.1); MONO % 7.5 % (3.8-10.2); PLATELET COUNT 324 10^3/uL (134-434); RBC 2.22 M/mm3 (3.60-5.2); RDW 15.4 % (11.6-15.6); WHITE BLOOD COUNT 6.9 K/mm3 (4.0-10.0)
[2023-08-23 14:58] LABS: HEMOGLOBIN 5.8 GM/dL (10.7-15.3); INR 1.07 (0.83-1.09); PROTHROMBIN TIME (PATIENT) 12.4 SEC (9.7-13.0)
[2023-08-23 15:01] LABS: ACTIVATED PTT 26.7 SECONDS (25.2-36.5)
[2023-08-23 15:13] LABS: POTASSIUM 4.3 mmol/L (3.5-5.1)
[2023-08-23 15:15] LABS: BLOOD UREA NITROGEN 19.8 mg/dL (7-18); CALCIUM 8.2 mg/dL (8.5-10.1)
[2023-08-23 15:16] LABS: ALBUMIN 3.5 g/dl (3.4-5.0)
[2023-08-23 15:18] LABS: CREATININE 1.2 mg/dL (0.55-1.3)
[2023-08-23 15:20] LABS: BILIRUBIN,TOTAL 0.2 mg/dL (0.2-1); TOT PROT 6.3 g/dl (6.4-8.2)
[2023-08-23] MEDS ORDERED: ACETAMINOPHEN 1000 MG/100 ML BAG IVPB ONE (16:02)
[2023-08-23] MEDS ORDERED: ONDANSETRON 4 MG/2 ML VIAL IVPUSH ONE (16:02)
[2023-08-23] MEDS ORDERED: ACETAMINOPHEN INJECTION 100 ML IVPB ONE (16:13)
[2023-08-23] MEDS ORDERED: ONDANSETRON 4 MG/2 ML VIAL ONE (16:14)
[2023-08-23] MEDS ORDERED: ALBUTEROL SO4 HFA INHALER IH PRN (19:14)
[2023-08-23] MEDS ORDERED: ATORVASTATIN CA 20 MG TABLET (FP) PO SCH (22:00)
[2023-08-23] MEDS ORDERED: ZOLPIDEM TARTRATE 5 MG TABLET PO PRN (22:00)
[2023-08-23] MEDS: CEPHALEXIN MONOHYDRATE 500 MG CAPSULE (UD) PO SCH (22:12)
[2023-08-23] MEDS: PANTOPRAZOLE SODIUM 40 MG VIAL IVPUSH SCH (22:12)
[2023-08-23 22:54] VITALS: BMI 27.5
[2023-08-23] MEDS: INSULIN SLIDING SCALE (NOVOLOG) 1 VIAL SQ SCH (23:49)
[2023-08-24 01:56] LABS: HEMATOCRIT 25.7 % (32.4-45.2); HEMOGLOBIN 8.6 GM/dL (10.7-15.3); MCHC 33.4 g/dl (32.0-36.0); MEAN CELL VOLUME 80.9 fl (80-96); PLATELET COUNT 291 10^3/uL (134-434); RBC 3.18 M/mm3 (3.60-5.2); RDW 16.6 % (11.6-15.6)
[2023-08-24] MEDS: INSULIN SLIDING SCALE (NOVOLOG) 1 VIAL SQ SCH ×3 (06:15→18:00)
[2023-08-24] MEDS ORDERED: INSULIN SLIDING SCALE (NOVOLOG) 1 VIAL SQ ONE (06:27)
[2023-08-24] MEDS ORDERED: LEVOTHYROXINE NA 88 MCG TABLET (FP) PO SCH (07:00)
[2023-08-24] MEDS: CEPHALEXIN MONOHYDRATE 500 MG CAPSULE (UD) PO SCH (09:25)
[2023-08-24] MEDS: PANTOPRAZOLE SODIUM 40 MG VIAL IVPUSH SCH (09:25)
[2023-08-24 09:30] LABS: BASO % 0.8 % (0-2.0); EOS % 1.5 % (0-4.5); HEMATOCRIT 26.2 % (32.4-45.2); HEMOGLOBIN 8.8 GM/dL (10.7-15.3); LYMPH % 18.3 % (8-40); MCH 27.3 pg (25.7-33.7); MCHC 33.6 g/dl (32.0-36.0); MEAN CELL VOLUME 81.2 fl (80-96); MEAN PLT VOLUME 7.1 fl (7.5-11.1); MONO % 5.5 % (3.8-10.2); NEUT % 73.9 % (42.8-82.8); PLATELET COUNT 310 10^3/uL (134-434); RBC 3.23 M/mm3 (3.60-5.2); RDW 15.9 % (11.6-15.6); WHITE BLOOD COUNT 8.7 K/mm3 (4.0-10.0)
[2023-08-24] MEDS ORDERED: CLOTRIMAZOLE/BETAMET DIPROP 15 GM TUBE TP SCH (10:00)
[2023-08-24] MEDS ORDERED: LOSARTAN POTASSIUM 50 MG TABLET PO SCH (10:00)
[2023-08-24] MEDS ORDERED: amLODIPine BESYLATE 10 MG TABLET (FP) PO SCH (10:00)
[2023-08-24] MEDS ORDERED: ANASTROZOLE 1 MG TABLET PO SCH (10:00)
[2023-08-24] MEDS ORDERED: ERYTHROMYCIN *INJECTION* 500 MG VIAL IVPB ONE (11:39)
[2023-08-24 11:44] LABS: POTASSIUM 4.8 mmol/L (3.5-5.1)
[2023-08-24 12:16] LABS: ALBUMIN 3.5 g/dl (3.4-5.0); CALCIUM 8.6 mg/dL (8.5-10.1); MAGNESIUM 1.8 mg/dL (1.8-2.4)
[2023-08-24 12:17] LABS: BLOOD UREA NITROGEN 11.2 mg/dL (7-18)
[2023-08-24 12:18] LABS: PHOSPHOROUS 4.1 mg/dL (2.5-4.9)
[2023-08-24 12:20] LABS: TOT PROT 6.4 g/dl (6.4-8.2)
[2023-08-24] MEDS ORDERED: ERYTHROMYCIN INJECTION - 250 MG in SODIUM CHLORIDE 100 ML IVPB ONE (13:00)
[2023-08-24] MEDS ORDERED: ONDANSETRON 4 MG/2 ML VIAL IVPUSH PRN (16:59)
[2023-08-24] MEDS ORDERED: LACTATED RINGERS SOLUTION 1,000 ML IV SCH (17:00)
[2023-08-24 17:27] VITALS: RESP 16; TEMP 98
[2023-08-24 18:02] VITALS: PULSE 83
[2023-08-24 19:29] VITALS: BP 124/68
== END 2023-08-24 19:20 | disposition home or self-care (01) | DRG 920 ==
LOC: JER 13:05 → JERBED 17:37 → J5S 19:02
PROVIDERS: ADMIT Internal Medicine; ATTEND Internal Medicine
PROC: 30233N1 Transfusion of Nonautologous Red Blood Cells into Peripheral Vein, Percutaneous Approach (ICD-10-PCS; 2023-08-23)
PROC: 0DJ08ZZ Inspection of Upper Intestinal Tract, Via Natural or Artificial Opening Endoscopic (ICD-10-PCS; principal; 2023-08-24 14:00)
DX: K91.840 Postprocedural hemorrhage of a digestive system organ or structure following a digestive system procedure (principal); D62 Acute posthemorrhagic anemia; Y83.8 Other surgical procedures as the cause of abnormal reaction of the patient, or of later complication, without mention of misadventure at the time of the procedure; K44.9 Diaphragmatic hernia without obstruction or gangrene; I25.10 Atherosclerotic heart disease of native coronary artery without angina pectoris; J44.9 Chronic obstructive pulmonary disease, unspecified; E03.9 Hypothyroidism, unspecified; E11.51 Type 2 diabetes mellitus with diabetic peripheral angiopathy without gangrene; K21.9 Gastro-esophageal reflux disease without esophagitis; K57.90 Diverticulosis of intestine, part unspecified, without perforation or abscess without bleeding; Z85.3 Personal history of malignant neoplasm of breast
CPT/HCPCS: 0241U-QW; 36415; 36430; 71046-TC-FY; 80053; 82272; 82728; 82962; 83540; 83550; 83735; 84100; 84484; 85025; 85027; 85610; 85730; 86850; 86900; 86901; 86922; 93005; 93010; 94760; 99285-25; P9058

== ENCOUNTER 2024-04-30 08:13 | Day surgery (SDC) | payer OTHER ==
[2024-04-23 16:48] VITALS: BMI 29.7
[2024-04-30] MEDS: CYCLOPENTOLATE 2% OPHTH SOLN 2 ML BOTTLE ONE (09:05)
[2024-04-30] MEDS: PHENYLEPHRINE 2.5% OPTHALMIC DROP 2ML BOTTLE ONE (09:05)
[2024-04-30] MEDS: TROPICAMIDE 1% OPHTH SOLN 15 ML BOTTLE ONE (09:05)
[2024-04-30] MEDS: CIPROFLOXACIN 0.3% EYE DROPS 5 ML BOTTLE ONE (09:05)
[2024-04-30] MEDS ORDERED: LIDOCAINE 1% P/F 10 MG/ML VIAL ONE (09:30)
[2024-04-30] MEDS ORDERED: NEO/POLYMYX B SULF/DEXAMETH OPHTHALMIC 5ML BOTTLE ONE (09:30)
[2024-04-30] MEDS ORDERED: BSS (NA/CA/MG/K) BALANCED SALT SOLUTION OPHTH SOLN 15 ML BOTTLE ONE (09:30)
[2024-04-30] MEDS ORDERED: TETRACAINE 0.5% OPHTH SOLN 2 ML BOTTLE ONE (09:30)
[2024-04-30] MEDS ORDERED: CARBACHOL 0.01% INTRA-OCULAR 1.5 ML VIAL ONE (09:30)
[2024-04-30] MEDS ORDERED: MIDAZOLAM HCL 2 MG/2 ML SINGLE DOSE VIAL ONE (10:25)
[2024-04-30 11:01] VITALS: PULSE 68; RESP 16; TEMP 96.9
[2024-04-30 11:30] VITALS: BP 123/47
== END 2024-04-30 11:45 | disposition home or self-care (01) ==
LOC: FASU 08:13
PROVIDERS: ATTEND Ophthalmology
PROC: 08RJ3JZ Replacement of Right Lens with Synthetic Substitute, Percutaneous Approach (ICD-10-PCS; principal; 2024-04-30 10:36)
DX: H26.8 Other specified cataract (principal)
CPT/HCPCS: 66984; V2632; 82962

== ENCOUNTER 2024-05-13 03:54 | Day surgery (SDC) | payer OTHER ==
[2024-05-12 09:04] VITALS: BMI 29.2
[2024-05-13 06:45] VITALS: BP 127/64; PULSE 83; RESP 18; TEMP 97.5
[2024-05-13] MEDS ORDERED: VANCOMYCIN 1,000 MG VIAL (RESTRICTED TO ID ONLY) ONE ×2 (07:02→07:35)
[2024-05-13] MEDS ORDERED: THROMBIN (BOVINE) 5,000 UNIT VIAL TP ONE (07:02)
[2024-05-13] MEDS ORDERED: GENTAMICIN SO4 80 MG/2 ML VIAL ONE (07:02)
[2024-05-13] MEDS ORDERED: BUPIVACAINE LIPOSOME/PF (EXPAREL) 266 MG/20 ML VIAL ONE (07:03)
[2024-05-13] MEDS ORDERED: BUPIVACAINE HCL/PF 0.5% (5MG/ML) 10 ML VIAL ONE (07:03)
[2024-05-13] MEDS: LIDOCAINE 1%/EPI 1:100000 (20 ML MULTI DOSE VIAL) IJ ONE (07:28)
[2024-05-13] MEDS: VANCOMYCIN 1 GM in D5W (PRE-DOCKED) 1,000 MG/250 ML (RESTRICTED TO ID ONLY IVPB ONE (07:29)
[2024-05-13] MEDS: ceFAZolin SODIUM 1 GM VIAL IVPB ONE (07:29)
[2024-05-13] MEDS ORDERED: PROPOFOL 20 ML ONE (07:33)
[2024-05-13] MEDS ORDERED: ONDANSETRON 4 MG/2 ML VIAL ONE (07:33)
[2024-05-13] MEDS ORDERED: DEXAMETHASONE SOD PHOSPHATE 4 MG/1 ML VIAL ONE (07:33)
[2024-05-13] MEDS ORDERED: LIDOCAINE HCL/PF 2% SDV 5ML VIAL ONE (07:33)
[2024-05-13] MEDS ORDERED: SUCCINYLCHOLINE CHLORIDE 200 MG/10 ML SYRINGE ONE (07:34)
[2024-05-13] MEDS ORDERED: ROCURONIUM BROMIDE 50 MG/5 ML SYRINGE ONE (07:34)
[2024-05-13] MEDS ORDERED: ceFAZolin SODIUM 1 GM VIAL ONE (07:35)
[2024-05-13] MEDS ORDERED: TRANEXAMIC ACID 1000 MG/10 ML VIAL ONE (07:35)
[2024-05-13 09:37] LABS: EPI CELLS 33 /uL (0-25.1); HYALINE CASTS 2 /uL (0-3.1); PH,URINE 6.5 (5.0-8.0); URINE APPEARANCE CLOUDY; URINE BACTERIA 89 /uL (0-1359); URINE BILIRUBIN NEGATIVE (NEGATIVE); URINE COLOR YELLOW; URINE GLUCOSE (UA) NEGATIVE (NEGATIVE); URINE KETONE NEGATIVE (NEGATIVE); URINE LEUK ESTERASE 3+ (NEGATIVE); URINE NITRITE NEGATIVE (NEGATIVE); URINE PROTEIN NEGATIVE (NEGATIVE); URINE RBC 22 /uL (0-23.9); URINE WBC 1067 /uL (0-25.8)
== END 2024-05-13 08:45 | disposition home or self-care (01) | DRG 552 ==
LOC: JASU-SURG 03:54 → J2C 03:54 → UNDOADMIN 03:54 → EDSTATUS 08:00 → UNDODISIN 08:45 → JASU-SURG 08:45
PROVIDERS: ATTEND Neurological Surgery
PROC: 0QP104Z Removal of Internal Fixation Device from Sacrum, Open Approach (ICD-10-PCS; principal; 2024-05-13)
DX: Z53.8 Procedure and treatment not carried out for other reasons (principal); M47.896 Other spondylosis, lumbar region
CPT/HCPCS: 76000-TC-FY; 81003; 82962; 86850; 86900; 86901

== ENCOUNTER 2024-05-15 04:10 | Inpatient (IN) | payer OTHER ==
[2024-05-13 14:38] VITALS: BMI 29.2
[2024-05-15] MEDS ORDERED: THROMBIN (BOVINE) 5,000 UNIT VIAL TP ONE ×2 (06:37→12:05)
[2024-05-15] MEDS: ceFAZolin SODIUM 1 GM VIAL IVPB ONE ×2 (09:48→14:00)
[2024-05-15] MEDS: VANCOMYCIN 1 GM in D5W (PRE-DOCKED) 1,000 MG/250 ML (RESTRICTED TO ID ONLY IVPB ONE ×2 (09:48→14:10)
[2024-05-15] MEDS: LIDOCAINE 1%/EPI 1:100000 (20 ML MULTI DOSE VIAL) IJ ONE ×2 (09:49→14:05)
[2024-05-15] MEDS: THROMBIN (BOVINE) 5,000 UNIT VIAL TP ONE ×2 (10:58→14:26)
[2024-05-15] MEDS: GENTAMICIN SO4 80 MG/2 ML VIAL IVPB ONE ×2 (10:59→15:33)
[2024-05-15] MEDS: HYDROGEN PEROXIDE 473 ML PO ONE ×2 (11:00→15:33)
[2024-05-15] MEDS ORDERED: ROCURONIUM BROMIDE 50 MG/5 ML SYRINGE ONE ×2 (13:22→14:26)
[2024-05-15] MEDS ORDERED: MIDAZOLAM HCL 2 MG/2 ML SINGLE DOSE VIAL ONE (13:23)
[2024-05-15] MEDS ORDERED: ETOMIDATE 20 MG/10 ML VIAL IVPUSH ONE (13:31)
[2024-05-15] MEDS ORDERED: PROPOFOL 20 ML ONE (14:34)
[2024-05-15] MEDS: VANCOMYCIN 1 GM in NS (PRE-DOCKED) 1,000 MG/250 ML (RESTRICTED TO ID ONLY) IVPB ONE ×3 (15:39→16:17)
[2024-05-15] MEDS ORDERED: ONDANSETRON 4 MG/2 ML VIAL ONE ×2 (15:55→18:19)
[2024-05-15] MEDS: BUPIVACAINE HCL/PF 0.5% (5MG/ML) 10 ML VIAL IJ ONE ×2 (16:17→16:35)
[2024-05-15] MEDS: BUPIVACAINE LIPOSOME/PF (EXPAREL) 266 MG/20 ML VIAL NR ONE ×2 (16:17→16:35)
[2024-05-15] MEDS ORDERED: IBUPROFEN 800 MG/8 ML IJ IVPB PRN (16:52)
[2024-05-15] MEDS ORDERED: LACTATED RINGERS SOLUTION 1,000 ML IV SCH (17:00)
[2024-05-15] MEDS ORDERED: morphine SULFATE 4 MG/ML VIAL IVPUSH PRN (17:56)
[2024-05-15] MEDS ORDERED: diphenhydrAMINE HCL 25 MG CAPSULE (FP) PO PRN (17:56)
[2024-05-15] MEDS ORDERED: HEPARIN NA (PORCINE) 5,000 UNITS/ML 1ML VIAL SQ SCH (18:00)
[2024-05-15] MEDS: ONDANSETRON 4 MG/2 ML VIAL IVPUSH PRN (18:22)
[2024-05-15] MEDS: LACTATED RINGERS SOLUTION 1,000 ML/1,000 ML INFUS.BAG IV SCH (18:22)
[2024-05-15] MEDS ORDERED: ACETAMINOPHEN INJECTION 100 ML ONE (18:48)
[2024-05-15] MEDS: ACETAMINOPHEN 1000 MG/100 ML BAG IVPB SCH (18:50)
[2024-05-15] MEDS: DOCUSATE SODIUM 100 MG CAPSULE (FP) PO SCH (21:23)
[2024-05-15] MEDS: ATORVASTATIN CA 20 MG TABLET (FP) PO SCH (21:23)
[2024-05-15] MEDS: CEFAZOLIN 1 GM in DEXTROSE 5%-WATER - 50 ML IVPB SCH (21:24)
[2024-05-16] MEDS: INSULIN ASPART SLIDING SCALE (NOVOLOG) 1 VIAL SQ SCH (06:13)
[2024-05-16] MEDS: GLIMEPIRIDE 2 MG TABLET PO SCH (06:23)
[2024-05-16] MEDS: LEVOTHYROXINE NA 50 MCG TABLET (FP) PO SCH (06:23)
[2024-05-16] MEDS: oxyCODONE HCL 5 MG TABLET PO PRN ×2 (06:30→11:03)
[2024-05-16] MEDS ORDERED: metFORMIN HCL 500 MG TABLET (FP) PO SCH (07:00)
[2024-05-16] MEDS ORDERED: GLIMEPIRIDE 2 MG TABLET PO SCH (07:00)
[2024-05-16 07:48] LABS: HEMATOCRIT 30.4 % (32.4-45.2); HEMOGLOBIN 10.3 GM/dL (10.7-15.3); MCH 30.6 pg (25.7-33.7); MCHC 33.8 g/dl (32.0-36.0); MEAN CELL VOLUME 90.5 fl (80-96); MEAN PLT VOLUME 6.7 fl (7.5-11.1); PLATELET COUNT 228 10^3/uL (134-434); RBC 3.35 M/mm3 (3.60-5.2); RDW 13.2 % (11.6-15.6); WHITE BLOOD COUNT 8.4 K/mm3 (4.0-10.0)
[2024-05-16 08:05] LABS: POTASSIUM 4.3 mmol/L (3.5-5.1)
[2024-05-16 08:09] LABS: CALCIUM 8.3 mg/dL (8.5-10.1)
[2024-05-16 08:14] LABS: CREATININE 0.7 mg/dL (0.55-1.3)
[2024-05-16] MEDS: ANASTROZOLE 1 MG TABLET PO SCH (10:52)
[2024-05-16] MEDS: LACTOBACILLUS ACIDOPHILUS 1 TABLET PO SCH (10:53)
[2024-05-16] MEDS: FERROUS SO4 325 MG TABLET (FP) PO SCH (10:53)
[2024-05-16] MEDS: LOSARTAN POTASSIUM 50 MG TABLET PO SCH (10:53)
[2024-05-16] MEDS: FOLIC ACID 1 MG TABLET (FP) PO SCH (10:53)
[2024-05-16] MEDS: MULTIVITAMINS (DAILY MVI) TABLET (FP) PO SCH (10:54)
[2024-05-16] MEDS: HEPARIN NA (PORCINE) 5,000 UNITS/ML 1ML VIAL SQ SCH (10:54)
[2024-05-16] MEDS: amLODIPine BESYLATE 10 MG TABLET (FP) PO SCH (10:54)
[2024-05-16 14:05] VITALS: RESP 20
[2024-05-16 14:11] VITALS: BP 110/56; PULSE 98; TEMP 97.9
[2024-05-16] MEDS: POLYETHYLENE GLYCOL (HEALTHYLAX) 3350 17 GM PACKET PO ONE (17:00)
[2024-05-16] MEDS ORDERED: ACETAMINOPHEN 500 MG TABLET (FP) PO SCH (18:30)
[2024-05-16] MEDS: PATIENT'S OWN MEDICATION (NON-FORMULARY) (Cholecalciferol (Vitamin D3) [Vitamin D3] 1,250 PO SCH (20:10)
== END 2024-05-16 18:15 | disposition home health service (06) | DRG 455 ==
LOC: J2C 04:10 → J2W 20:04
PROVIDERS: ADMIT Neurological Surgery; ATTEND Internal Medicine
PROC: 0SG10J1 Fusion of 2 or more Lumbar Vertebral Joints with Synthetic Substitute, Posterior Approach, Posterior Column, Open Approach (ICD-10-PCS; 2024-05-15)
PROC: 0SB20ZZ Excision of Lumbar Vertebral Disc, Open Approach (ICD-10-PCS; 2024-05-15)
PROC: 0SG30J1 Fusion of Lumbosacral Joint with Synthetic Substitute, Posterior Approach, Posterior Column, Open Approach (ICD-10-PCS; 2024-05-15)
PROC: 0SP004Z Removal of Internal Fixation Device from Lumbar Vertebral Joint, Open Approach (ICD-10-PCS; 2024-05-15)
PROC: 0SP304Z Removal of Internal Fixation Device from Lumbosacral Joint, Open Approach (ICD-10-PCS; 2024-05-15)
PROC: 4A11X4G Monitoring of Peripheral Nervous Electrical Activity, Intraoperative, External Approach (ICD-10-PCS; 2024-05-15)
PROC: 0SG10AJ Fusion of 2 or more Lumbar Vertebral Joints with Interbody Fusion Device, Posterior Approach, Anterior Column, Open Approach (ICD-10-PCS; principal; 2024-05-15 11:00)
DX: M96.0 Pseudarthrosis after fusion or arthrodesis (principal); M47.896 Other spondylosis, lumbar region; I10 Essential (primary) hypertension; Y83.8 Other surgical procedures as the cause of abnormal reaction of the patient, or of later complication, without mention of misadventure at the time of the procedure; E78.5 Hyperlipidemia, unspecified; I25.10 Atherosclerotic heart disease of native coronary artery without angina pectoris; J44.9 Chronic obstructive pulmonary disease, unspecified; E03.9 Hypothyroidism, unspecified; K21.9 Gastro-esophageal reflux disease without esophagitis; E11.51 Type 2 diabetes mellitus with diabetic peripheral angiopathy without gangrene; Z85.3 Personal history of malignant neoplasm of breast
CPT/HCPCS: 36415; 72131-TC; 80048; 82962; 83036; 85027; 86850; 86900; 86901; 94760; 97116-GP; 97162-GP; C1713; C1789; C1889; J0131; J1644

== ENCOUNTER 2024-06-11 08:58 | Day surgery (SDC) | payer OTHER ==
[2024-06-03 15:52] VITALS: BMI 29.7
[2024-06-11] MEDS ORDERED: BSS (NA/CA/MG/K) BALANCED SALT SOLUTION OPHTH SOLN 15 ML BOTTLE ONE (09:27)
[2024-06-11] MEDS ORDERED: LIDOCAINE 1% P/F 10 MG/ML VIAL ONE (09:27)
[2024-06-11] MEDS ORDERED: TETRACAINE 0.5% OPHTH SOLN 2 ML BOTTLE ONE (09:27)
[2024-06-11] MEDS ORDERED: CARBACHOL 0.01% INTRA-OCULAR 1.5 ML VIAL ONE (09:28)
[2024-06-11] MEDS ORDERED: NEO/POLYMYX B SULF/DEXAMETH OPHTHALMIC 5ML BOTTLE ONE (09:28)
[2024-06-11] MEDS: CIPROFLOXACIN 0.3% EYE DROPS 5 ML BOTTLE ONE (09:40)
[2024-06-11] MEDS: PHENYLEPHRINE 2.5% OPTHALMIC DROP 2ML BOTTLE ONE (09:40)
[2024-06-11] MEDS: CYCLOPENTOLATE 2% OPHTH SOLN 2 ML BOTTLE ONE (09:40)
[2024-06-11] MEDS: TROPICAMIDE 1% OPHTH SOLN 15 ML BOTTLE ONE (09:40)
[2024-06-11] MEDS ORDERED: MIDAZOLAM HCL 2 MG/2 ML SINGLE DOSE VIAL ONE (11:12)
[2024-06-11 11:40] VITALS: RESP 16; TEMP 97.1
[2024-06-11 12:17] VITALS: PULSE 94
[2024-06-11 12:21] VITALS: BP 120/70
== END 2024-06-11 12:15 | disposition home or self-care (01) ==
LOC: FASU 08:58
PROVIDERS: ATTEND Ophthalmology
PROC: 08RK3JZ Replacement of Left Lens with Synthetic Substitute, Percutaneous Approach (ICD-10-PCS; principal; 2024-06-11 11:19)
DX: H26.8 Other specified cataract (principal)
CPT/HCPCS: 66984; V2632; 82962